=== PATIENT | female | born 1990 | race African-American/Black ===

== ENCOUNTER 2019-06-24 21:16 | Emergency (ER) | payer MEDICAID, SELFPAY ==
--- NOTE | ~2019-06-24 | XR_ITS ---
XR ankle LT min 3V 06/24/2019 21:39 Indication: Left ankle pain Procedure: 4 views left ankle Comparison: No prior studies for comparison. Findings: There is an oblique distal fibular metadiaphyseal fracture with approximately 2-3 mm latera l displacement. Moderate lateral soft tissue swelling. No significant angulation. Talar dome is unrem arkable. There are mild degenerative changes of the midfoot. Impression: 1: Oblique distal fibular fracture with mild lateral displacement. Reviewed, dictated and finalized at location A. HYSICAL [employer]Y CHIEF Impression: 1: Oblique distal fibular fracture with mild lateral displacement.
[2019-06-24 21:20] VITALS: BP 125/69; PULSE 66; RESP 16; TEMP 36.4; O2SAT 100
--- NOTE | 2019-06-24 21:31 | ED.LOWEXIN ---
HPI - Extremity Injury (Lower) General Chief Complaint: Extremity Injury, Lower Stated Complaint: L ankle injury Time Seen by Provider: 06/24/19 21:22 Source: patient Mode of arrival: ambulatory Limitations: no limitations History of Present Illness HPI Narrative: Patient is a 28-year-old female who presents complaining of left ankle pain and swelling. Patient reports tripping and twisting ankle 3 days ago. Reports that she has been ambulating and pain has decreased. Patient reports swelling and bruising continue. She is not on blood thinners. She reports taking [id number] medications with moderate relief. complaint: ankle injury Related Data Allergies Allergy/AdvReac Type Severity Reaction Status Date / Time No Known Allergies Allergy Verified 06/24/19 21:26 Review of Systems Review of Systems: Narrative: CONSTITUTIONAL: Denies fever, chills, or sweats. EYES: Denies visual changes, redness, or discharge. ENT: Denies rhinorrhea, congestion, sore throat, or otalgia. CARDIOVASCULAR: Denies chest pain, palpitations, or edema. RESPIRATORY: Denies cough or dyspnea. GASTROINTESTINAL: Denies abdominal pain, nausea, vomiting, or diarrhea. GENITOURINARY: Denies dysuria or hematuria. SKIN: Denies rash or itching. MUSCULOSKELETAL: Denies back pain, joint pain, or myalgia. Reports left ankle pain, bruising and swelling NEUROLOGIC: Denies headache, numbness, dizziness, or weakness. PSYCHIATRIC: Denies anxiety or depression. [facility] Past Medical History Medical History (Updated 06/24/19 @ 22:08 by SANTINO Dumas) Migraine Myasthenia gravis Pituitary tumor per patient verbal history Surgical History Surgical History (Updated 06/24/19 @ 21:35 by SANTINO Dumas) H/O thyroidectomy per patient Social History Social History (Updated 06/24/19 @ 21:36 by SANTINO Dumas) Smoking status: Never smoker Alcohol intake: never Substance use: never Gender identity (if verbalized by the patient): Female Exam Narrative: Exam Narrative: GENERAL: Well-appearing, well-nourished, and in no acute distress. HEAD: Normocephalic, atraumatic. EYES: EOMI. No redness or drainage. Conjunctiva are normal. ENT: Mucous membranes pink and moist. Nares clear. No rhinorrhea. TMs normal bilaterally. Throat normal. Uvula midline. NECK: AROM. Supple. No lymphadenopathy. CHEST: No respiratory distress. Clear to auscultation. HEART: Regular rate and rhythm. No murmur appreciated. Normal peripheral pulses. EXTREMITIES: Left ankle: Large amount of generalized edema from tarsals to mid calf, medial ecchymosis, distal sensation intact, good peripheral pulse SKIN: Warm, dry, no rash. NEURO: No focal deficits. Alert and oriented x3. Gait steady. PSYCH: Normal affect. No signs of depression or anxiety. Course Vital Signs Vital signs: Vital Signs Temperature 36.4 C 06/24/19 21:20 Pulse Rate 66 06/24/19 21:20 Respiratory Rate 16 06/24/19 21:20 Blood Pressure 125/69 06/24/19 21:20 Pulse Oximetry 100 06/24/19 21:20 Temperature 36.4 C 06/24/19 21:20 Pulse Rate 66 06/24/19 21:20 Respiratory Rate 16 06/24/19 21:20 Blood Pressure 125/69 06/24/19 21:20 Pulse Oximetry 100 06/24/19 21:20 Procedures Orthopedic Splinting/Casting Injury #1: Splinting/Casting Date: 06/24/19 Splinting/Casting Time: 22:11 Side: left Lower Extremity Injury Location: ankle Lower Extremity Immobilizer: posterior splint OCL: posterior Pre-Procedure Neuro Vascular Exam: normal Post-Procedure Neuro Vascular Exam: normal Other Orthopedic Equipment: crutches Additional Comments: Splinting completed by ED RN, checked by this provider. Distal sensation intact and good capillary refill. MDM - Extremity Injury (Lower) MDM Narrative Medical decision making narrative: Patient has distal fibular fracture. Splint applied and patient trained on crutch
[2019-06-24 22:47] VITALS: BP 120/80; PULSE 80; RESP 18; TEMP 36.7; O2SAT 97
== END 2019-06-24 22:48 | disposition home or self-care (01) ==
PROVIDERS: Emergency Provider Nurse Practitioner
DX: S89.392A Other physeal fracture of lower end of left fibula, initial encounter for closed fracture (principal); G70.00 Myasthenia gravis without (acute) exacerbation; E89.0 Postprocedural hypothyroidism; W18.40XA Slipping, tripping and stumbling without falling, unspecified, initial encounter; X50.9XXA Other and unspecified overexertion or strenuous movements or postures, initial encounter
CPT/HCPCS: 29515; 73610; 99284

== ENCOUNTER 2021-01-10 08:12 | Emergency (ER) | payer OTHER, SELFPAY ==
[2021-01-10 08:17] VITALS: BP 130/83; PULSE 71; RESP 18; TEMP 37.2; O2SAT 100
[2021-01-10 08:44] LABS: Basophils Percent Auto 0.2 % (0.2-1.2); Eosinophils Percent Auto 0.3 % (0-4.4); Hematocrit 35.6 % (37.0-47.0); Hemoglobin 11.1 g/dL (12.0-15.0); Immature Granulocyte Absolute 0.02 K/mm3 (0.00-0.031); Immature Granulocyte Percent A 0.3 % (0-0.5); Lymphocytes Percent Auto 43.3 % (18.3-44.2); Mean Corpuscular HGB Conc 31.2 g/dl (32-36); Mean Corpuscular Hemoglobin 26.1 pg (26-34); Mean Corpuscular Volume 83.6 fl (80-100); Mean Platelet Volume 9.9 fl (7.4-10.4); Monocytes Absolute Auto 0.7 K/mm3 (0.1-0.6); Neutrophils Absolute Auto 2.6 K/mm3 (1.3-6.7); Neutrophils Percent Auto 43.9 % (45.5-73.1); Platelet Count Result 262 k/mm3 (150-375); Red Blood Count 4.26 M/mm3 (4.2-5.4); Red Cell Distribution Width 14.2 % (11.5-14.5)
[2021-01-10 09:00] LABS: Alanine Aminotransferase 14 U/L (4-35); Albumin Level 4.1 g/dL (3.5-5.1); Alkaline Phosphatase 79 U/L (38-126); Anion Gap 5 mmol/L (8-16); Aspartate Amino Transferase 20 U/L (14-36); Bilirubin,Total 0.4 mg/dL (0.2-1.3); Blood Urea Nitrogen 9 mg/dL (7-17); Calcium 8.5 mg/dL (8.4-10.2); Carbon Dioxide 25 mmol/L (22-30); Chloride 102 mmol/L (98-107); Estimated CRCL calculation 152 ml/min; Estimated Glomerular Filt Rate > 60; Glucose 106 mg/dL (65-110); Lipase 56 U/L (23-300); Potassium 3.8 mmol/L (3.4-5.0); Sodium 132 mmol/L (137-145)
[2021-01-10 09:03] LABS: Add Urine Microscopic? YES; Appearance Urine Cloudy (Clear); Bilirubin Urine Negative (Negative); Blood Urine Negative (Negative); Color Urine Yellow (Yellow); Glucose Urine UA Negative (Negative); Ketones Urine Negative (Negative); Leukocyte Esterase Ur Negative LEU/UL (Negative); Mucus Urine Rare /lpf; Nitrate Urine Negative (Negative); Protein Urine Negative (Negative); Specific Grav Ur 1.016 (1.001-1.035); Squamous Epithelial Cell Urine Few /hpf (Few); Urobilinogen Urine Negative mg/dL (<2.0); WBC Urine 0-3 /hpf
--- NOTE | 2021-01-10 09:41 | ED.ABDPAIN ---
HPI - Abdominal Pain General Chief Complaint: Abdominal Pain Stated Complaint: Abd and Breast Pain Time Seen by Provider: 01/10/21 09:12 Source: patient Mode of arrival: ambulatory Limitations: no limitations History of Present Illness HPI narrative: This is a 30-year-old female that presents to the emergency department for pelvic cramping and breast tenderness. Noted over the last couple of days. She was concerned that she might be . She is unsure of her last menstrual period. It was sometime last month. She is not currently on control. Denies fever, abnormal breast masses or nipple discharge, nausea, vomiting, dysuria, or diarrhea. Related Data Allergies Allergy/AdvReac Type Severity Reaction Status Date / Time No Known Allergies Allergy Verified 01/10/21 08:19 Review of Systems Review of Systems: CONSTITUTIONAL: Denies fever GASTROINTESTINAL: Denies abdominal pain, nausea, vomiting, or diarrhea. GENITOURINARY: Denies dysuria or hematuria. All systems reviewed & are unremarkable except as noted in HPI and below PMFSH Past Medical History Medical History (Updated 01/10/21 @ 09:45 by Meri Lindquist PA-C) Migraine Myasthenia gravis Pituitary tumor per patient verbal history Surgical History Surgical History (Updated 06/24/19 @ 21:35 by SANTINO Dumas) H/O thyroidectomy per patient Social History Social History (Updated 06/24/19 @ 21:36 by SANTINO Dumas) Smoking status: Never smoker Alcohol intake: never Substance use: never Gender identity (if verbalized by the patient): Female Exam Narrative: GENERAL: Well-appearing, well-nourished, and in no acute distress. HEAD: Normocephalic, atraumatic. EYES: EOMI. CHEST: Clear to auscultation. No respiratory distress. No wheezes rales or rhonchi HEART: Regular rate and rhythm. No murmur heard. Normal peripheral pulses. ABDOMEN: Soft, nontender, nondistended, normal active bowel sounds. EXTREMITIES: Normal range of motion. No edema. SKIN: Warm, dry, no rash. NEURO: No focal deficits. Alert and oriented x3. PSYCH: Normal mood and affect Course Vital Signs Vital signs: Vital Signs Temperature 99.0 F 01/10/21 08:17 Pulse Rate 71 01/10/21 08:17 Respiratory Rate 18 01/10/21 08:17 Blood Pressure 130/83 01/10/21 08:17 Pulse Oximetry 100 01/10/21 08:17 Temperature 99.0 F 01/10/21 08:17 Pulse Rate 71 01/10/21 08:17 Respiratory Rate 18 01/10/21 08:17 Blood Pressure 130/83 01/10/21 08:17 Pulse Oximetry 100 01/10/21 08:17 MDM - Abdominal Pain MDM Narrative Medical decision making narrative: Patient presents the emergency department for pelvic cramping and breast tenderness. Patient was unsure of her last menstrual period and wondering if she was . She is afebrile and nontoxic-appearing. Abdominal exam is benign. CBC is without leukocytosis. Does show mild normocytic anemia with hemoglobin of 11.1. Metabolic panel and lipase without concerning findings. UA without evidence of infection. Bedside test is negative. Patient was updated on case findings. Denies any current symptoms and would like to go home. She was instructed to follow-up with her processing associate. She is stable and felt appropriate for further outpatient evaluation. She was given warnings to return to the ER Lab Data Attestation: I reviewed the patient's lab results. Result diagrams: 01/10/21 08:38 01/10/21 08:38 Labs: Lab Results 01/10/21 01/10/21 01/10/21 Range/Units 08:27 08:38 08:38 WBC 6.0 (4.5-10.0) K/mm3 RBC 4.26 (4.2-5.4) M/mm3 Hgb 11.1 L (12.0-15.0) g/dL Hct 35.6 L (37.0-47.0) % MCV 83.6 (80-100) fl MCH 26.1 (26-34) pg MCHC 31.2 L (32-36) g/dl RDW 14.2 (11.5-14.5) % Plt Count 262 (150-375) k/mm3 MPV 9.9 (7.4-10.4) fl Immature Gran % (Auto) 0.3 (0-0.5) % Neut % (Auto) 43.9 L (45.5-73.1) %
--- NOTE | 2021-01-10 09:41 | PC.NURSE ---
Pt. repeatedly asking technicians to take out her IV. Pt. reports I cannot move my arm. Technicians informed pt. they cannot take out her Iv. RN in to remove pt. Iv. pt. states I am discharged and not getting any medications so take my IV out. RN removed pt. iv. pt. dressed on stretcher waiting for discharge instructions.
== END 2021-01-10 09:45 | disposition home or self-care (01) ==
PROVIDERS: Emergency Provider Emergency Medicine
DX: N64.4 Mastodynia (principal)
CPT/HCPCS: 36415; 80053; 81001; 81025; 83690; 85025; 99283

== ENCOUNTER 2022-08-25 06:05 | Emergency (ER) | payer OTHER, SELFPAY ==
--- NOTE | ~2022-08-25 | CT_ITS ---
EXAMINATION: CT abdomen pelvis w con DATE: 08/25/2022 08:17 INDICATION: Low abdominal pain. Nausea and vomiting. TECHNIQUE: Computed tomography (CT) of the abdomen and pelvis was performed with 100 mL Omnipaque 350 intravenous contrast. Automated exposure control and iterative reconstruction technique were employe d. The dose-length product was 1612.89 mGy-cm. COMPARISON: None. FINDINGS: The visualized portions of the lung bases demonstrate minimal atelectasis. No pleural effus ion. The heart size is normal. No pericardial effusion. The liver, gallbladder, spleen, pancreas, adr enal glands, and kidneys are normal. There are no dilated loops of bowel. The appendix is normal. The re are no pathologically enlarged lymph nodes. There is no free intraperitoneal fluid. There is mild thoracolumbar spondylosis. IMPRESSION: 1. No etiology for the patient's symptoms. Reviewed, dictated and finalized at location A.
[2022-08-25 06:09] VITALS: BP 131/78; PULSE 85; RESP 16; TEMP 37.1; O2SAT 100
--- NOTE | 2022-08-25 07:08 | ED.BACK ---
HPI - Back Pain/Injury General Chief Complaint: Back Pain/Injury Stated Complaint: lower back pain Time Seen by Provider: 08/25/22 07:01 Source: RN notes reviewed History of Present Illness HPI Narrative: Patient presents emergency room from home for lower back pain. Patient symptoms began approximately 3 AM this morning. The pain is located in the bilateral lower back and does not radiate described as achy in nature. Patient states pain began approximately 3 AM this morning. States is associated with bilateral lower abdominal pain described as pressure in nature. States that she had 4 episodes of vomiting yesterday as well as some diarrhea. States that she has not taken anything for the pain. She denies any fevers or chills chest pain shortness of breath or any other symptoms. Denies any numbness or tingling in the extremity Related Data Home Medications Medication Instructions Recorded Confirmed bromocriptine 2.5 mg tablet mg 08/25/22 gabapentin 400 mg capsule mg 08/25/22 ketoconazole 2 % topical cream applic topical 08/25/22 liraglutide 0.6 mg/0.1 mL (18 mg/3 mg subcut 08/25/22 mL) subcutaneous pen injector (Skifttoza 2-Ty) norgestimate 0.25 mg-ethinyl tablet 08/25/22 estradiol 35 mcg tablet (Sprintec (28)) propranolol 60 mg capsule,24 mg PO 08/25/22 hr,extended release Allergies Allergy/AdvReac Type Severity Reaction Status Date / Time No Known Allergies Allergy Verified 08/25/22 06:05 Review of Systems Review of Systems: Gen.: Denies fevers or chills ENT: Denies congestion Respiratory: Denies shortness of breath or cough CV: Denies chest pain or palpitations GI: Reports HPI denies burning, urgency, frequency or hematuria Musculoskeletal: Reports lower back pain Neuro: Denies numbness, tingling, weakness or focal weakness Skin: Denies rash Except as documented, all other systems reviewed and negative PMFSH Past Medical History Medical History Migraine Myasthenia gravis Pituitary tumor per patient verbal history Surgical History Surgical History (Updated 06/24/19 @ 21:35 by Radha Weinstein, STAFFING ANALYST) H/O thyroidectomy per patient Social History Social History Smoking status: Never smoker Alcohol intake: never Substance use: never Gender identity (if verbalized by the patient): Female Exam Narrative: APPEARANCE: No acute distress, nontoxic, resting in bed HEENT: Normocephalic, atraumatic, OMM RESPIRATORY: No respiratory distress, clear to auscultation bilaterally with no rhonchi wheezing or rales CARDIOVASCULAR: RRR s murmur ABDOMINAL: Soft nondistended tender to palpation in the right lower quadrant in the left lower quadrant no tenderness in the right upper quadrant and left lower quadrant no rebound or guarding Back: No midline thoracic or lumbar tenderness palpation, mild tenderness palpation of the bilateral paravertebral muscles L3-5 MUSCULOSKELETAl: Moves all extremities. No clubbing, cyanosis or edema. NEURO: Awake and alert. Following commands, speech normal, no focal deficits SKIN:: Warm, dry. Normal Color PSYCHIATRIC: Normal affect/mood Course Course Emergency Course: Patient states she is feeling better at this time Discussed with patient results of workup and diagnosis. Discussed need for follow-up with primary care, proper use of medication, and reasons to return to the emergency department. Patient understands and agrees to current treatment plan Vital Signs Vital signs: Vital Signs Temperature 98.7 F 08/25/22 06:09 Pulse Rate 85 08/25/22 06:09 Respiratory Rate 16 08/25/22 06:09 Blood Pressure 131/78 08/25/22 06:09 Pulse Oximetry 100 08/25/22 06:09 Temperature 98.7 F 08/25/22 06:09 Pulse Rate 85 08/25/22 06:09 Respiratory Rate 16 08/25/22 06:09 Blood Pressure 131/78 08/25/22 06:09 Pulse Oximet
[2022-08-25 07:22] LABS: Appearance Urine Cloudy (Clear); Bacteria Urine Rare /hpf; Bilirubin Urine Negative (Negative); Blood Urine Negative (Negative); Color Urine Yellow (Yellow); Glucose Urine UA Negative (Negative); Ketones Urine Negative (Negative); Leukocyte Esterase Ur Negative LEU/UL (Negative); Nitrate Urine Negative (Negative); Non Pathogenic Casts 0-2; Protein Urine Negative (Negative); Specific Grav Ur 1.022 (1.001-1.035); Squamous Epithelial Cell Urine Moderate /hpf (Few); WBC Urine 0-5 /hpf; pH Urine 6.5 (5.0-9.0)
[2022-08-25] MEDS: SODIUM CHLORIDE 0.9% IV 1,000 ML 999 ML IV CONT (07:31)
[2022-08-25] MEDS: KETOROLAC 30 MG/ML VIAL (*BKC) IV PUSH (07:32)
[2022-08-25 07:41] LABS: Add Urine Microscopic? YES
[2022-08-25 07:42] LABS: Basophils Percent Auto 0.2 % (0.2-1.2); Eosinophils Percent Auto 0.3 % (0-4.4); Hemoglobin 11.8 g/dL (12.0-15.0); Immature Granulocyte Absolute 0.03 K/mm3 (0.00-0.031); Immature Granulocyte Percent A 0.5 % (0-0.5); Lymphocytes Absolute Auto 1.28 K/mm3 (0.9-3.2); Mean Corpuscular HGB Conc 31.9 g/dl (32-36); Mean Corpuscular Hemoglobin 26.4 pg (26-34); Mean Corpuscular Volume 82.8 fl (80-100); Mean Platelet Volume 9.7 fl (7.4-10.4); Monocytes Absolute Auto 0.8 K/mm3 (0.1-0.6); Monocytes Percent Auto 12.5 % (2.6-8.5); Neutrophils Absolute Auto 4.3 K/mm3 (1.3-6.7); Neutrophils Percent Auto 66.5 % (45.5-73.1); Platelet Count Result 328 k/mm3 (150-375); Red Blood Count 4.47 M/mm3 (4.2-5.4); Red Cell Distribution Width 14.4 % (11.5-14.5); White Blood Count 6.4 K/mm3 (4.5-10.0)
[2022-08-25 07:54] LABS: Alanine Aminotransferase 19 U/L (6-35); Albumin Level 4.4 g/dL (3.5-5.1); Alkaline Phosphatase 86 U/L (38-126); Anion Gap 6 mmol/L (8-16); Aspartate Amino Transferase 20 U/L (14-36); Bilirubin,Total 0.3 mg/dL (0.2-1.3); Blood Urea Nitrogen 9 mg/dL (7-17); Calcium 8.1 mg/dL (8.4-10.2); Carbon Dioxide 29 mmol/L (22-30); Chloride 104 mmol/L (98-107); Estimated CRCL calculation 141 ml/min; Estimated Glomerular Filt Rate > 60; Glucose 96 mg/dL (65-110); Lipase 67 U/L (23-300); Potassium 3.9 mmol/L (3.4-5.0); Sodium 139 mmol/L (137-145)
[2022-08-25 09:35] VITALS: RESP 16; TEMP 36.6
== END 2022-08-25 09:45 | disposition home or self-care (01) ==
PROVIDERS: Emergency Provider Emergency Medicine
DX: M54.50 Low back pain, unspecified (principal); R10.31 Right lower quadrant pain; R10.32 Left lower quadrant pain; R11.2 Nausea with vomiting, unspecified
CPT/HCPCS: 36415; 74177; 80053; 81001; 81025; 83690; 85025; 96361; 96374; 99284; J1885; J7030; Q9967

== ENCOUNTER 2024-06-23 11:36 | Emergency (ER) | payer BC, SELFPAY ==
--- NOTE | ~2024-06-23 | XR_ITS ---
CHEST RADIOGRAPH, PA AND LATERAL CLINICAL HISTORY: cough . COMPARISON: None available TECHNIQUE: PA and lateral views of the chest. FINDINGS The cardiomediastinal silhouette is unremarkable. Marked elevation of the left hemidiaphragm with adjacent compressive atelectasis. The lungs are otherwise clear. IMPRESSION: No focal infiltrate or effusion. Reviewed, dictated and finalized at location A. CTOR SEARCH
[2024-06-23 11:43] VITALS: BP 121/73; PULSE 71; TEMP 36.9; O2SAT 100
--- OUTSIDE RECORDS SUMMARY | 2024-06-23 12:45 | XMS_ITS ---
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 Name Role Phone Letha Carroll Primary Care Provider REASON FOR VISIT 3 Month Follow-up Medications Medication SIG (Take, Route, Frequency, Duration) Notes Start Date End Date Status Ergocalciferol 1.25 MG (5000 0 UT) 1 capsule Orally weekly for 84 days 06/22/2024 Active Mounjaro 2.5 MG/0.5ML inject 0.5ml Subcutaneous weekly for 30 days 06/22/2024 Active Mounjaro 5 MG/0.5ML inject 0.5ml Subcutaneous weekly for 90 days 06/22/2024 Active Azithromycin 250 MG 2 tablets on the day, then 1 tablet daily for 4 days oral until complete for 5 days 06/22/2024 Active Benzonatate 100 MG 1 capsule as needed for cough Orally Three times a day for 10 days 06/22/2024 Active Famotidine 40 MG/5ML 5 mL Orally Once a day Active Bromocriptine Mesylate 2.5 MG three tabl ets Orally Once a day for 90 days 04/27/2024 Active pyRIDostigmine [place] 60 MG 1 tablet Or ally every 4 hrs Active methylPREDNISolone 4 MG take as indicate d for medrol dose pack Orally daily for 6 days 06/22/2024 Active Vital Signs Blood pressure systolic 117 mm Hg 06/22/19 25 Blood pressure diastolic 72 mm Hg 025 Heart Rate 70 /min 06/22/2024 Height 68 in 06/22/2024 Weight 253 lbs 06/22/2024 BMI 38.46 kg/m2 06/22/2024 SPO2: 98% Encounters Encounter Location Date Provider Diagnosis [facility] - Letha Carroll [id number] [place] [address] 06/22/2024 Letha Carroll Hyperprolactinemia E 22.1 ; Type 2 diabetes mellitus with hyperglycemia E11.65 ; Irregular menstruation, unspecified N92.6 ; Vitamin D deficiency, unspecified E55.9 ; Acute upper respiratory infection, unspecified J06.9 ; Obesity, unspecified E66.9 and Dietary counseling and surveillance Z71.3 Assessments Encounter Date Diagnosis (ICD Code) Assessment Notes Treatment Notes Treatment Clinical Notes Section Notes 06/22/2024 Hyperprolactinemia (ICD-10 - E22.1) 06/22/2024 Type 2 diabetes mellitus with hyperglycemia (ICD-10 - E11.65) 06/22/2024 Irregular menstruation, unspecified (ICD-10 - N92.6) 06/22/2024 Vitamin D deficiency, unspecified (ICD-10 - E55.9) 06/22/2024 Acute upper respiratory infection, unspecified (ICD-10 - J06.9) 06/22/2024 Obesity, unspecified (ICD-10 - E66.9) 06/22/2024 Dietary counseling and surveillance (ICD-10 - Z71.3) 06/22/2024 Other Assessment and Plan: Upper Respiratory InfectionPatient presents with cough, sinus congestion, and fatigue, with symptoms including white sputum production and nocturnal exacerbation. No fever reported. Negative COVID-19 rapid test. FLU A/B negative.Differential diagnoses: viral upper respiratory infection, influenza, or early/mild COVID-19 infection.Prescribe Tessalon Perles for cough suppression.Initiate Medrol Dose Pack for anti-inflammatory effect.Prescribe azithromycin (Z-Ty) for potential secondary bacterial infection.Advise proper dressing for cold weather.Recommend adequate rest and hydration. Type 2 Diabetes MellitusHistory of diabetes with elevated A1c levels and insulin resistance. Not currently on glucose-lowering medications due to insurance issues.Attempt to initiate Mounjaro 2.5 mg subcutaneously weekly, titrating to 5 mg after 4 weeks if tolerated.Explore insurance coverage options for Mounjaro.If insurance denies, consider compounded tirzepatide 2.5 mg weekly at $290/month for 4 doses.Provide patient education on Mounjaro administration and potential side effects.Obtain informed consent for Mounjaro, emphasizing risk of nausea and need to discontinue if severe abdominal pain or vomiting occurs.Restart metformin (dosage not specified). Polycystic Ovary Syndrome (PCOS)Elevated DHEAS levels consistent with PCOS diagnosis. Reports irregular menstrual cycles.Continue bromocriptine 7.5 mg (frequency not specified).Emphasize importance of weight loss in managing PCOS symptoms.Monitor menstrual cycles. Vitamin D DeficiencySuspected or being treated prophylactically for Vitamin D deficiency. No previous history of supplementation reported.Initiate vitamin D 50,000 IU orally weekly.Recommend taking vitamin D on the same day as Mounjaro injection. Gastroesophageal Reflux Disease (GERD)Patient reports taking famotidine for heartburn symptoms, indicating ongoing GERD management.Continue famotidine (dosage not specified). Myasthenia GravisPatient reports taking pyridostigmine, indicating ongoing management for myasthenia gravis.Continue pyridostigmine (dosage not specified). Follow-up:Schedule a follow-up appointment as needed to review treatment effectiveness and adjust plans accordingly.Encourage patient to report any new or worsening symptoms. Spent 15 minutes preventative counseling patient on dietary recommendations and changes in setting of hyperglycemia- need to restrict refined sugars and processed foods and incorporate up to 150 minutes of moderate level activity weekly. Spent 25 minutes preparing to see the patient (ex review of tests/chart), obtaining and / or reviewing separately obtained history, performing a medically appropriate examination and/or evaluation, counseling and educating the patient/family/caregi martín, ordering medications, tests, or procedures, referring and communicating with other health career development associate, documenting clinical information in the electronic or other health record, independently interpreting results and communicating results to the patient/family/caregi martín and care coordinating patient plan. Patient alert and oriented x 4 and aware of discussion noted above and in agreeance to plan in management of PCOS, type 2 DM, vit D def, obesity, weight management and ROBERTO. Plan Of Treatment Medication Medication Name Sig Start Date Stop Date Notes Ergocalciferol 1.25 MG (5000 0 UT) 1 capsule Orally weekly for 84 days 06/22/2024 Mounjaro 2.5 MG/0.5ML inject 0.5ml Subcu taneous weekly for 30 days 06/22/2024 Mounjaro 5 MG/0.5ML inject 0.5ml Subcuta neous weekly for 90 days 06/22/2024 Azithromycin 250 MG 2 tablets on the fir st day, then 1 tablet daily for 4 days oral until complete for 5 days 06/22/2024 Benzonatate 100 MG 1 capsule as needed for cough Orally Three times a day for 10 days 06/22/2024 methylPREDNISolone 4 MG take as indicate d for medrol dose pack Orally daily for 6 days 06/22/2024 Treatment Notes Assessment Notes Other Assessment and Plan: Upper Respiratory InfectionPatient presents with cough, sinus congestion, and fatigue, with symptoms including white sputum production and nocturnal exacerbation. No fever reported. Negative COVID-19 rapid test. FLU A/B negative.Differential diagnoses: viral upper respiratory infection, influenza, or early/mild COVID-19 infection.Prescribe Tessalon Perles for cough suppression.Initiate Medrol Dose Pack for anti-inflammatory effect.Prescribe azithromycin (Z-Ty) for potential secondary bacterial infection.Advise proper dressing for cold weather.Recommend adequate rest and hydration. Type 2 Diabetes MellitusHistory of diabetes with elevated A1c levels and insulin resistance. Not currently on glucose-lowering medications due to insurance issues.Attempt to initiate Mounjaro 2.5 mg subcutaneously weekly, titrating to 5 mg after 4 weeks if tolerated.Explore insurance coverage options for Mounjaro.If insurance denies, consider compounded tirzepatide 2.5 mg weekly at $290/month for 4 doses.Provide patient education on Mounjaro administration and potential side effects.Obtain informed consent for Mounjaro, emphasizing risk of nausea and need to discontinue if severe abdominal pain or vomiting occurs.Restart metformin (dosage not specified). Polycystic Ovary Syndrome (PCOS)Elevated DHEAS levels consistent with PCOS diagnosis. Reports irregular menstrual cycles.Continue bromocriptine 7.5 mg (frequency not specified).Emphasize importance of weight loss in managing PCOS symptoms.Monitor menstrual cycles. Vitamin D DeficiencySuspected or being treated prophylactically for Vitamin D deficiency. No previous history of supplementation reported.Initiate vitamin D 50,000 IU orally weekly.Recommend taking vitamin D on the same day as Mounjaro injection. Gastroesophageal Reflux Disease (GERD)Patient reports taking famotidine for heartburn symptoms, indicating ongoing GERD management.Continue famotidine (dosage not specified). Myasthenia GravisPatient reports taking pyridostigmine, indicating ongoing management for myasthenia gravis.Continue pyridostigmine (dosage not specified). Follow-up:Schedule a follow-up appointment as needed to review treatment effectiveness and adjust plans accordingly.Encourage patient to report any new or worsening symptoms. Spent 15 minutes preventative counseling patient on dietary recommendations and changes in setting of hyperglycemia- need to restrict refined sugars and processed foods and incorporate up to 150 minutes of moderate level activity weekly. Spent 25 minutes preparing to see the patient (ex review of tests/chart), obtaining and / or reviewing separately obtained history, performing a medically appropriate examination and/or evaluation, counseling and educating the patient/family/caregiver, ordering medications, tests, or procedures, referring and communicating with other health career development associate, documenting clinical information in the electronic or other health record, independently interpreting results and communicating results to the patient/family/caregiver and care coordinating patient plan. Patient alert and oriented x 4 and aware of discussion noted above and in agreeance to plan in management of PCOS, type 2 DM, vit D def, obesity, weight management and ROBERTO. Next Appt Details Follow Up: 4 Months, Reason: labwork Provider Name:Letha Carroll, 10:00:00 AM, [address] , [place], [address], Progress Notes * GARCIA DAVISADOB:1990 (33 yo F)Acc No.[id number]:06/22/2024 Progress Notes Patient:?ALEIDA DAVIS Provider:?Letha Carroll MD :1990???Age:33 Y???Sex:Female D ate:06/22/2024 Address:[address] [place] [address] Subjective: * Chief Complaints: * ???1. 3 Month Follow-up. * HPI: ???Interval Hx:? 33 yo female comes in for follow up in management of weight/insulin resistance, PCOS, prolactinoma hx and autoimmune thyroiditis.? ?Found to have prediabetes and vit D def.? At her initial visit in [facility] we restarted bromocriptine 7.5 mg daily and added mounjaro for weight management. Thyroid and prolactin levels normal from [facility] labwork. Carla presented with a persistent cough, sinus congestion, and fatigue, with symptoms worsening at night and producing white sputum. She has a history of diabetes, PCOS, myasthenia gravis, and sleep apnea. Her diabetes management is currently challenged by insurance issues with Mounjaro coverage. She also reported recent episodes of diarrhea and missed her menstrual period this month. COVID-19 test was negative, and lab results showed elevated A1c and insulin levels. Treatment plans include managing her upper respiratory infection, exploring options for diabetes medication, and continuing current treatments for PCOS, GERD, and myasthenia gravis. The patient presents with a persistent cough that she just can't get rid of and sinus congestion. She reports the cough comes and goes, occurring mostly at night but also during the day. The patient has been experiencing white sputum production. These symptoms have been ongoing for a couple of days. She denies fever but reports feeling tired, and experiencing temperature fluctuations. The patient attributes some of her symptoms to improper dressing for cold weather and sleeping in a room where the heating system malfunctioned, blowing cold air instead of heat. She also mentions recent episodes of diarrhea at work. The patient has a history of diabetes and reports being out of metformin and insulin. She expresses interest in starting Mounjaro for blood sugar control but states insurance has not approved it. The patient also mentions not having had a menstrual period this month. Medical History - Diabetes (history of) - Polycystic ovarian syndrome (PCOS) - Myasthenia gravis - Sleep apnea - COVID-19 (3 previous infections) Current and Past Medications and Supplements - Famotidine (for heartburn) - Pyridostigmine (for myasthenia gravis) - Bromocriptine 7.5 mg - Trulicity (once a week) Social History - Occupation: employed, occupation not specified - Living situation: lives with spouse Review of Systems - General: Feeling unwell, fatigue - Respiratory: Persistent cough, sinus issues - Gastrointestinal: Diarrhea - ENT: Nasal congestion, especially at night - Thermoregulatory: Feeling hot then cold. * ROS:?NEUROLOGY:?no?headache.?no?tingling numbness.?no?seizures.?no?insomnia.?no?memory loss.?no?dizziness.?no?gait abnormality.?no?change in sensation anywhere on body.?no?localized weakness or numbness.?no?blackouts or near blackouts.?no?migraine.?no?tremors.?no?fainting spells.?no?head injury.?no?stroke.?OPTHALMOLOGY:?no?diminished vision.?no?eye irritation.?no?drainage from eyes.?no?blurring of vision.?no?seasonal eye sx.?no?dander related eye sx.?no?loss of vision.?no?cataracts.?no?glasses/contacts.?no?glaucoma.?no?detached retina.?no?macular degeneration.?no?eye redness.?RESPIRATORY:?no?shortness of breath.?no?chest pain.?no?wheezing.?no?asthma.?no?breathlessness when lying flat.?no?prolonged cough.?no?frequent infections (bronchitis).?no?emphysema.?no?chest congestion.?no?sleep apnea.?ALLERGY:?no?runny nose.?no?scratchy throat.?no?itchy eyes.?no?ear fullness.?no?sinus congestion.?no?stuffy nose.?no?watery eyes.?no?seasonal allergies.?no?hay fever.?no?allergy.?no?polyps.?no?sneezing.?HEMATOLOGY/LYMPH:?no?swollen glands.?no?fatigue.?no?loss of appetite.?no?easy bruising.?no?easy bleeding.?no?anemia.?UROLOGY:?no?difficulty urinating.?no?blood in urine.?no?urinary urgency.?no?frequent urination.?no?urinary incontinence.?no?voiding dysfunction.?no?vulvodynia.?no?dysparaunia.?no?recurrent UTI.?no?weak flow.?no?dribbling after urination.?no?frequent bladder infections.?no?kidney stone.?no?kidney disease.?no?urine hesitancy.?no?painful urination.?NUTRITION:?greater than body requirmemts?yes.?Less than body requirements?yes.?appropriate / adequate?yes,?yes.?CONSTITUTIONAL:?no?weight gain.?no?loss of appetite.?no?fever.?no?weakness.?no?weight loss.?no?night sweats.?no?nausea.?no?visual changes.?no?change in sleep patterns.?h+p reviewed?yes,?ROS form reviewed with patient see scan for detail.?no?change in activity capacity.?DERMATOLOGY:?no?rash.?no?change in color of moles.?no?lumps.?no?dry or sensitive skin.?no?hives.?no?oily skin.?no?acne.?no?moles-irregular.?no?moles-change/new.?no?boils.?no dandru ff.?n o?excessive body odor.?no?psoriasis.?no?fungal infections.?no?nail problems.?no?redness/inflammation.?no?athlete's foot.?no?skin cancer.?no?eczema.?ENDOCRINOLOGY:?no?fatigue.?no?excessive sweating.?no?excessive thirst.?no?excessive urination.?no?weight loss.?no?sleep disturbance.?no?cold intolerance.?no?heat intolerence.?no?thyroid disease.?no?increased loss of hair.?no?hx of borderline diabetes.?no?diabetes.?no?abdormal body hair.?no?rheumatism.?no?changes in skin texture.?ENT:?no?cold.?no?cough.?no?coughing blood.?no?nose bleed.?no?hearing loss.?no?change in voice.?no?sore throat.?no?ringing in ears.?no?snoring.?no?ear pain.?no?runny nose.?no?watery eyes.?no?sinus infection.?no?ear infection.?no facial pain.?no?hoarseness.?no?goiter.?no?gum problems.?no?postnasal drip.?no?frequent nosebleeds.?CARDIOLOGY:?no?chest pain.?no?palpitations.?no?leg swelling.?no?dizziness.?no?shortness of breath.?no?varicose veins.?no?leg cramps.?no?cold hands or feet.?no?high blood pressure.?no ankle swelling.?no?cardiac catheterization.?no?heart attacks.?no?angina.?no?murmurs.?no?low blood pressure.?no?leg pain that resolves w/rest.?no?purple fingers or lips.?no?irregular heart rate.?no?congenital heart defects.?no?dizziness when standing up quickly.?no?awakening at night short of breath.?GASTROENTEROLOGY:?no?nausea.?no?heartburn.?no?stool incontinence.?no?reflux.?no?abdominal pain.?no?indigestion.?no?hemorrhoids.?no?hiatal hernia.?no?ulcers.?no?anal fissures.?no?hepatitis.?no?gallstones.?no?red blood after bowel movements.?no?vomiting.?no?bloating/belching.?no?difficulty swallowing.?no?diarrhea.?no?constipation.?no?change in bowel habits.?no?blood in stool.?MUSCULOSKELETAL:?no?joint swelling.?no?joint pain.?no?leg cramps.?no?joint stiffness.?no?arthritis.?no?back pain.?no?muscle aches.?no?morning stiffness.?no?tendinitis.?no?neck pain. no?bursitis.?no?bone marrow biopsy.?no?gout.?activity intolerance?weakness.?no?fracture.?PSYCHOLOGY:?no?high stress level.?no?depression.?no?sleep disturbances.?no?resp sx worse with stress.?no?suicidal ideation.?no?eating disorder.?no?mental or physical abuse.?no?anxiety.?no?headaches.?disease state?yes.?FEMALE REPRODUCTIVE:?no?heavy periods.?no?dysparaunia.?no?sexually active.?no?premenstrual syndrome.?no?dysmenorrhea.?no?infertility.?no?frequent yeast infections.?no?vaginal itching.?no?intermenstrual bleeding.?no?post coital bleeding.?no?postmenopausal bleeding.?no?pelvic pain.?no?menstral cycle.?no?vaginal discharge.?no?vaginal dryness.?no?ovarian cysts.?no?fibroids.?no?discharge from breast.?no abn. bleeding between cycles.?no?postmenopausal symptoms.?no?loss of sexual interest.?no?painful sexual intercourse.?no?endometriosis.?no?vaginal warts.?no?abnormal pap.?no?irregular periods.?no?abnormal vaginal discharge.?no?hot flashes.? * Medical History:?PCOS, vitam in D deficiency, type 2 DM. * Medications:?Taking Bromocri ptine Mesylate 2.5 MG Tablet three tablets Orally Once a day , Taking pyRIDostigmine [place] 60 MG Tablet 1 tablet Orally every 4 hrs , Taking Famotidine 40 MG/5ML Suspension Reconstituted 5 mL Orally Once a day Objective: * Vitals:?HR: 70, BP: 117/72, Ht: 68, Wt: 253, BMI: 38.46. SPO2: 98%. * ???Past Orders: ???Lab:INSULIN (Order Date - 05/06/2024) (Collection Date & Time - 05/06/2024 07:39 AM) ? Value Reference Range ?INSULIN 19.6 H - uIU/mL ???Lab:ACTH, PLASMA (Order D ate - 05/06/2024) (Collection Date & Time - 05/06/2024 07:39 AM) ? Value Reference Range ?ACTH, PLASMA 35 6-50 - pg/mL ???Lab:FSH (Order Date - 03/2024) (Collection Date & Time - 05/06/2024 07:39 AM) ? Value Reference Range ?FSH 6.3 - mIU/mL ???Lab:PROGESTERONE (Order D ate - 05/06/2024) (Collection Date & Time - 05/06/2024 07:39 AM) ? Value Reference Range ?PROGESTERONE 0.6 - ng/mL ???Lab:VITAMIN D, 25-HYDROXY , LC/MS/MS (Order Date - 05/06/2024) (Collection Date & Time - 05/06/2024 07:39 AM) ? Value Reference Range ?VITAMIN D, 25-OH, TOTAL 11 L 30-100 - ng/mL ???Lab:TSH (Order Date - 03/2024) (Collection Date & Time - 05/06/2024 07:39 AM) ? Value Reference Range ?TSH 1.35 - mIU/L ???Lab:T4, FREE (Order Date - 05/06/2024) (Collection Date & Time - 05/06/2024 07:39 AM) ? Value Reference Range ?T4, FREE 1.2 0.8-1.8 - n g/dL ???Lab:T3, FREE (Order Date - 05/06/2024) (Collection Date & Time - 05/06/2024 07:39 AM) ? Value Reference Range ?T3, FREE 3.8 2.3-4.2 - p g/mL ???Lab:CORTISOL, TOTAL (Orde r 05/06/2024) (Collection Date & Time - 05/06/2024 07:39 AM) ? Value Reference Range ?CORTISOL, TOTAL 14.5 - mc g/dL ???Lab:TESTOSTERONE, FREE (D IALYSIS) AND TOTAL,MS (Order Date - 05/06/2024) (Collection Date & Time - 05/06/2024 07:39 AM) ? Value Reference Range ?TESTOSTERONE, TOTAL, MS 27 2-45 - ng/dL ?TESTOSTERONE, FREE 5.3 0 .1-6.4 - pg/mL ???Lab:ESTRADIOL (Order - 05/06/2024) (Collection Date & Time - 05/06/2024 07:39 AM) ? Value Reference Range ?ESTRADIOL 27 - pg/mL ???Lab:LH (Order Date - 04/26) (Collection Date & Time - 05/06/2024 07:39 AM) ? Value Reference Range ?LH 4.2 - mIU/mL ???Lab:PROLACTIN (Order - 05/06/2024) (Collection Date & Time - 05/06/2024 07:39 AM) ? Value Reference Range ?PROLACTIN 17.0 - ng/mL ???Lab:HEMOGLOBIN A1c (Order - 05/06/2024) (Collection Date & Time - 05/06/2024 07:39 AM) ? Value Reference Range ?HEMOGLOBIN A1c 6.2 H <5.7 - % of total Hgb ???Lab:LIPID PANEL (Order Da 05/06/2024) (Collection Date & Time - 05/06/2024 07:39 AM) ? Value Reference Range ?TRIGLYCERIDES 83 <150 - mg/dL ?CHOLESTEROL, TOTAL 163 < 200 - mg/dL ?HDL CHOLESTEROL 63 > OR = 50 - mg/dL ?LDL-CHOLESTEROL 83 - mg /dL (calc) ?CHOL/HDLC RATIO 2.6 <5.0 - (calc) ?NON-HDL CHOLESTEROL 100 <130 - mg/dL (calc) ???Lab:VITAMIN B12/FOLATE, S EFRAIN PANEL (Order 05/06/2024) (Collection Date & Time - 05/06/2024 07:39 AM) ? Value Reference Range ?FOLATE, SERUM 12.4 - ng/m L ?VITAMIN B12 957 183-0837 - pg/mL ???Lab:MAGNESIUM (Order Date - 05/06/2024) (Collection Date & Time - 05/06/2024 07:39 AM) ? Value Reference Range ?MAGNESIUM 2.2 1.5-2.5 - mg/dL ???Lab:CBC (INCLUDES DIFF/PL T) (Order Date - 05/06/2024) (Collection Date & Time - 05/06/2024 07:39 AM) ? Value Reference Range ?WHITE BLOOD CELL COUNT 4.4 3.8-10.8 - Thousand/uL ?RED BLOOD CELL COUNT 4.71 3.80-5.10 - Million/uL ?HEMOGLOBIN 12.3 11.7-15.5 - g/dL ?HEMATOCRIT 39.0 35.0-45.0 - % ?MCV 82.8 80.0-100.0 - fL ?MCH 26.1 L 27.0-33.0 - pg ?MCHC 31.5 L 32.0-36.0 - g/d L ?RDW 13.7 11.0-15.0 - % ?PLATELET COUNT 329 140-4 00 - Thousand/uL ?NEUTROPHILS 41.6 - % ?ABSOLUTE NEUTROPHILS 1830 4334-4049 - cells/uL ?LYMPHOCYTES 41.0 - % ?ABSOLUTE LYMPHOCYTES 6303 748-4120 - cells/uL ?MONOCYTES 16.5 - % ?ABSOLUTE MONOCYTES 726 2 00-950 - cells/uL ?EOSINOPHILS 0.7 - % ?ABSOLUTE EOSINOPHILS 31 15-500 - cells/uL ?BASOPHILS 0.2 - % ?ABSOLUTE BASOPHILS 9 0 -200 - cells/uL ?MPV 10.2 7.5-12.5 - fL ???Lab:IRON AND TOTAL IRON B INDING CAPACITY (Order Date - 05/06/2024) (Collection Date & Time - 05/06/2024 07:39 AM) ? Value Reference Range ?IRON, TOTAL 75 40-190 - mcg/dL ?IRON BINDING CAPACITY 445 250-450 - mcg/dL (calc) ?% SATURATION 17 16-45 - % (calc) ???Lab:COMPREHENSIVE METABOL IC PANEL (Order Date - 05/06/2024) (Collection Date & Time - 05/06/2024 07:39 AM) ? Value Reference Range ?GLUCOSE 105 H 65-99 - mg/d L ?UREA NITROGEN (BUN) 8 7-25 - mg/dL ?CREATININE 0.65 0.50-0.97 - mg/dL ?BUN/CREATININE RATIO SEE NOTE: 6-22 - (calc) ?SODIUM 138 135-146 - mmo l/L ?POTASSIUM 4.2 3.5-5.3 - mmol/L ?CHLORIDE 103 98-110 - mm ol/L ?CARBON DIOXIDE 28 20-32 - mmol/L ?CALCIUM 9.1 8.6-10.2 - m g/dL ?PROTEIN, TOTAL 7.6 6.1-8 .1 - g/dL ?ALBUMIN 4.2 3.6-5.1 - g/ dL ?GLOBULIN 3.4 1.9-3.7 - g /dL (calc) ?ALBUMIN/GLOBULIN RATIO 1.2 1.0-2.5 - (calc) ?BILIRUBIN, TOTAL 0.4 0.2 -1.2 - mg/dL ?ALKALINE PHOSPHATASE 94 31-125 - U/L ?AST 18 10-30 - U/L ?ALT 20 6-29 - U/L ?EGFR 118 > OR = 60 - mL/ min/1.73m2 ???Lab:DHEA SULFATE (Order D ate - 05/06/2024) (Collection Date & Time - 05/06/2024 07:39 AM) ? Value Reference Range ?DHEA SULFATE 362 H 19-237 - mcg/dL * Examination: ???General Examination: ?General?normal, NAD, well nourished and hydrated, pleasant, obese female.?Neck, thyroid :?supple.?Heart:?BP wnl, RSR, no murmurs.?Lungs:?normal, respirations easy with conversation and ambulation.?Abdomen:?normal, round, non-distended.?Neurologic exam:?unremarkable.?Extremities:?unremarkable.?Peripheral pulses:?normal (2+) bilaterally .?Psych:?orientation to person, place & situation, appropriate judgment noted.? Assessment: * Assessment: 1.?Hyperprolactinemia - E22. 1 (Primary)???2.?Type 2 diabetes mellitus with hyperglycemia - E11.65???3.?Irregular menstruation, unspecified - N92.6???4.?Vitamin D deficiency, unspecified - E55.9???5.?Acute upper respiratory infection, unspecified - J06.9???6.?Obesity, unspecified - E66.9???7.?Dietary counseling and surveillance - Z71.3??? Plan: * Treatment: 2.?Vitamin D deficiency, uns pecified? Start Ergocalciferol Capsule, 1.25 MG (98397 UT), 1 capsule, Orally, weekly, 84 days, 12, Refills 1.?? 3.?Acute upper respiratory i nfection, unspecified? Start Azithromycin Tablet, 250 MG, 2 tablets on the first day, then 1 tablet daily for 4 days, oral, until complete, 5 days, 6, Refills 1;?Start Benzonatate Capsule, 100 MG, 1 capsule as needed for cough, Orally, Three times a day, 10 days, 30 Capsule, Refills 1;?Start methylPREDNISolone Tablet, 4 MG, take as indicated for medrol dose pack, Orally, daily, 6 days, 1, Refills 1.?? 4.?Others? Notes:Assessment and Plan: Upper Respiratory InfectionPatient presents with cough, sinus congestion, and fatigue, with symptoms including white sputum production and nocturnal exacerbation. No fever reported. Negative COVID-19 rapid test. FLU A/B negative.Differential diagnoses: viral upper respiratory infection, influenza, or early/mild COVID-19 infection.Prescribe Tessalon Perles for cough suppression.Initiate Medrol Dose Pack for anti-inflammatory effect.Prescribe azithromycin (Z-Ty) for potential secondary bacterial infection.Advise proper dressing for cold weather.Recommend adequate rest and hydration. Type 2 Diabetes MellitusHistory of diabetes with elevated A1c levels and insulin resistance. Not currently on glucose-lowering medications due to insurance issues.Attempt to initiate Mounjaro 2.5 mg subcutaneously weekly, titrating to 5 mg after 4 weeks if tolerated.Explore insurance coverage options for Mounjaro.If insurance denies, consider compounded tirzepatide 2.5 mg weekly at $290/month for 4 doses.Provide patient education on Mounjaro administration and potential side effects.Obtain informed consent for Mounjaro, emphasizing risk of nausea and need to discontinue if severe abdominal pain or vomiting occurs.Restart metformin (dosage not specified). Polycystic Ovary Syndrome (PCOS)Elevated DHEAS levels consistent with PCOS diagnosis. Reports irregular menstrual cycles.Continue bromocriptine 7.5 mg (frequency not specified).Emphasize importance of weight loss in managing PCOS symptoms.Monitor menstrual cycles. Vitamin D DeficiencySuspected or being treated prophylactically for Vitamin D deficiency. No previous history of supplementation reported.Initiate vitamin D 50,000 IU orally weekly.Recommend taking vitamin D on the same day as Mounjaro injection. Gastroesophageal Reflux Disease (GERD)Patient reports taking famotidine for heartburn symptoms, indicating ongoing GERD management.Continue famotidine (dosage not specified). Myasthenia GravisPatient reports taking pyridostigmine, indicating ongoing management for myasthenia gravis.Continue pyridostigmine (dosage not specified). Follow-up:Schedule a follow-up appointment as needed to review treatment effectiveness and adjust plans accordingly.Encourage patient to report any new or worsening symptoms. Spent 15 minutes preventative counseling patient on dietary recommendations and changes in setting of hyperglycemia- need to restrict refined sugars and processed foods and incorporate up to 150 minutes of moderate level activity weekly. Spent 25 minutes preparing to see the patient (ex review of tests/chart), obtaining and / or reviewing separately obtained history, performing a medically appropriate examination and/or evaluation, counseling and educating the patient/family/caregiver, ordering medications, tests, or procedures, referring and communicating with other health career development associate, documenting clinical information in the electronic or other health record, independently interpreting results and communicating results to the patient/family/caregiver and care coordinating patient plan. Patient alert and oriented x 4 and aware of discussion noted above and in agreeance to plan in management of PCOS, type 2 DM, vit D def, obesity, weight management and ROBERTO. ?? * Procedure Codes:?92966 P/M C OUNSEL, INDIV 15 MIN, U0002 Covid-19 lab test non-cdc * Follow Up:?4 Months (Reason: labwork) * Billing Information: * Visit Code:? 07029 Office Visit, Est Pt., Level 4. Modifiers: 25 * Procedure Codes:? 71143 P/M SIGNAL INTELLIGENCE/ELECTRONIC WARFARE, INDIV 15 MIN. U0002 Covid-19 lab test non-cdc. * NSED VETERINARY TECHNICIAN Sign off status: Completed true * Provider:?Letha Carroll MD Date:? 5 Generated for Riki adams/Nathaly/Alanitting on:?06/23/2024 12:45 PM LICENSED VETERINARY TECHNICIAN History and Physical Notes * HPI (History of Present Illness) Category Sub-Category Detail Notes Category Not es Interval Hx 33 yo female comes in for follow up in management of weight/insulin resistance, PCOS, prolactinoma hx and autoimmune thyroiditis. Found to have prediabetes and vit D def. At her initial visit in [facility] we restarted bromocriptine 7.5 mg daily and added mounjaro for weight management. Thyroid and prolactin levels normal from [facility] labwork. Carla presented with a persistent cough, sinus congestion, and fatigue, with symptoms worsening at night and producing white sputum. She has a history of diabetes, PCOS, myasthenia gravis, and sleep apnea. Her diabetes management is currently challenged by insurance issues with Mounjaro coverage. She also reported recent episodes of diarrhea and missed her menstrual period this month. COVID-19 test was negative, and lab results showed elevated A1c and insulin levels. Treatment plans include managing her upper respiratory infection, exploring options for diabetes medication, and continuing current treatments for PCOS, GERD, and myasthenia gravis. The patient presents with a persistent cough that she just can't get rid of and sinus congestion. She reports the cough comes and goes, occurring mostly at night but also during the day. The patient has been experiencing white sputum production. These symptoms have been ongoing for a couple of days. She denies fever but reports feeling tired, and experiencing temperature fluctuations. The patient attributes some of her symptoms to improper dressing for cold weather and sleeping in a room where the heating system malfunctioned, blowing cold air instead of heat. She also mentions recent episodes of diarrhea at work. The patient has a history of diabetes and reports being out of metformin and insulin. She expresses interest in starting Mounjaro for blood sugar control but states insurance has not approved it. The patient also mentions not having had a menstrual period this month. Medical History - Diabetes (history of) - Polycystic ovarian syndrome (PCOS) - Myasthenia gravis - Sleep apnea - COVID-19 (3 previous infections) Current and Past Medications and Supplements - Famotidine (for heartburn) - Pyridostigmine (for myasthenia gravis) - Bromocriptine 7.5 mg - Trulicity (once a week) Social History - Occupation: employed, occupation not specified - Living situation: lives with spouse Review of Systems - General: Feeling unwell, fatigue - Respiratory: Persistent cough, sinus issues - Gastrointestinal: Diarrhea - ENT: Nasal congestion, especially at night - Thermoregulatory: Feeling hot then cold Examination Category Sub-Category Detail Notes Category Not es General Examination Neck, thyroid : supple Heart: BP wnl, RSR, no murm urs Lungs: normal, respirations easy with conversation and ambulation Abdomen: normal, round, non-d istended Extremities: unremarkable General normal, NAD, well no urished and hydrated, pleasant, obese female Neurologic exam: unremarkable Peripheral pulses: normal (2+) bilatera lly Psych: orientation to perso n, place & situation, appropriate judgment noted
--- OUTSIDE RECORDS SUMMARY | 2024-06-23 12:45 | XMS_ITS | Patient Health Record ---
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 Name Role Phone Letha Carroll Primary Care Provider [phone] Margy Chairez Unavailable [phone] Results Component Value Reference Range Notes COMPREHENSIVE METABOLIC PANE L Reviewed date:05/07/2024 07:51:49 PM Interpretation: Performing Lab:[facility], [address], [place], [address] Eleuterio Griffiths Notes/Report: VITAMIN D, 25-HYDROXY, LC/MS /MS Reviewed date:05/07/2024 07:51:49 PM Interpretation: Performing Lab:[facility], [address] [place], [address] Eleuterio Grfifiths MD Notes/Report: ACTH, PLASMA Reviewed date:05/12/2024 10:28:44 PM Interpretation: Performing Lab:Sam SANCHEZ/Angélica [facility], [address], [place], [address] Isrrael Graham M.D.,PhD Notes/Report: T3, FREE Reviewed date:05/07/2024 07:51:49 PM Interpretation: Performing Lab:[facility], [address] [place], [address] Eleuterio Griffiths MD Notes/Report: CORTISOL, TOTAL Reviewed date:05/07/2024 07:51:49 PM Interpretation: Performing Lab:[facility], [address] [place], [address] Eleuterio Griffiths MD Notes/Report: DHEA SULFATE Reviewed date:05/07/2024 07:51:49 PM Interpretation: Performing Lab:[facility], [address], [address] Eleuterio Griffiths MD Notes/Report: ESTRADIOL Reviewed date:05/07/2024 07:51:49 PM Interpretation: Performing Lab:Sam LAURENT [facility], [address] [place], [address] Eleuterio Griffiths Notes/Report: FSH Reviewed date:05/07/2024 07:51:49 PM Interpretation: Performing Lab:[facility], [address], [place], [address] Eleuterio Griffiths MD Notes/Report: HEMOGLOBIN A1c Reviewed date:05/07/2024 07:51:49 PM Interpretation: Performing Lab:ANASTASIIA [facility], [address] [place], [address] Eleuterio Griffiths Notes/Report: INSULIN Reviewed date:05/07/2024 07:51:49 PM Interpretation: Performing Lab:[facility], [address] [place], [address] Eleuterio Griffiths MD Notes/Report: LH Reviewed date:05/07/2024 07:51:49 PM Interpretation: Performing Lab:[facility], [address], [place], [place], [address] Eletuerio Griffiths MD Notes/Report: MAGNESIUM Reviewed date:05/07/2024 07:51:50 PM Interpretation: Performing Lab:ANASTASIIA, HAKIM [facility], [address] [place], [address] Eleuterio Griffiths Notes/Report: CBC (INCLUDES DIFF/PLT) Reviewed date:05/07/2024 07:51:50 PM Interpretation: Performing Lab:ANASTASIIA, HAKIM [facility], [address] [place], [address] Eleuterio Griffiths Notes/Report: VITAMIN B12/FOLATE, SERUM PA CASSI Reviewed date:05/07/2024 07:51:50 PM Interpretation: Performing Lab:KS, [facility], [address], [place], [address] Eleuterio Griffiths MD Notes/Report: PROGESTERONE Reviewed date:05/07/2024 07:51:50 PM Interpretation: Performing Lab:SL, [facility], [address] [place], [address] Eleuterio Griffiths Notes/Report: PROLACTIN Reviewed date:05/07/2024 07:51:50 PM Interpretation: Performing Lab:KS, [facility], [address], [place], [address] Eleuterio Griffiths MD Notes/Report: IRON AND TOTAL IRON BINDING CAPACITY Reviewed date:05/07/2024 07:51:50 PM Interpretation: Performing Lab:KS, [facility], [address], [place], [address] Eleuterio Griffiths MD Notes/Report: LIPID PANEL Reviewed date:05/07/2024 07:51:50 PM Interpretation: Performing Lab:SL, [facility], [address] [place], [address] PamShilpa Griffiths Notes/Report: T4, FREE Reviewed date:05/07/2024 07:51:50 PM Interpretation: Performing Lab:SL, [facility], [address] [place], [address] PamShilpa Griffiths Notes/Report: TSH Reviewed date:05/07/2024 07:51:50 PM Interpretation: Performing Lab:SL, [facility], [address] [place], [address] [facility] Notes/Report: TESTOSTERONE, FREE (DIALYSIS ) AND TOTAL,MS Reviewed date:05/12/2024 10:28:51 PM Interpretation: Performing Lab:[facility], [facility], [address] [address], [address], [place], [address] Amada Love MD,PhD Notes/Report: TESTOSTERONE, TOTAL, MS 27 2-45 ng/dL For additional information, please refer to https://education.[email or web address].com/faq/HJE991 (This link is being provided for informational/educational purposes only.) (Note) This test was developed and its analytical performance characteristics have been determined by [employer]. It has not been cleared or approved by the FDA. This assay has been validated pursuant to the CLIA regulations and is used for clinical purposes. TESTOSTERONE, FREE 5.3 0.1-6.4 pg/mL (Note) This test was developed and its analytical performance characteristics have been determined by [employer]. It has not been cleared or approved by the FDA. This assay has been validated pursuant to the CLIA regulations and is used for clinical purposes. [facility] [address] [address],[address] [place] [address] Amada Love MD, PhD Reason For Referral No Information Medications Medication SIG (Take, Route, Frequency, Duration) Notes Start Date End Date Status Famotidine 40 MG/5ML 5 mL Orally Once a day Active Ergocalciferol 1.25 MG (5000 0 UT) 1 capsule Orally weekly for 84 days 06/22/2024 Active Bromocriptine Mesylate 2.5 MG three tabl ets Orally Once a day for 90 days 04/27/2024 Active pyRIDostigmine [place] 60 MG 1 tablet Or ally every 4 hrs Active Mounjaro 2.5 MG/0.5ML inject 0.5ml Subcutaneous weekly for 30 days 06/22/2024 Active Mounjaro 5 MG/0.5ML inject 0.5ml Subcutaneous weekly for 90 days 06/22/2024 Active Azithromycin 250 MG 2 tablets on the , then 1 tablet daily for 4 days oral until complete for 5 days 06/22/2024 Active Benzonatate 100 MG 1 capsule as needed for cough Orally Three times a day for 10 days 06/22/2024 Active methylPREDNISolone 4 MG take as indicate d for medrol dose pack Orally daily for 6 days 06/22/2024 Active Problems Problem Type SNOMED Code ICD Code Onset Dates Problem Status W/U Status Risk Notes Problem Vitamin D deficiency (01937908) Vitamin D deficiency, unspecified (E55.9) Active confirmed Problem Hyperglycemia due to type 2 diabetes mellitus (998735290707649) Type 2 diabetes mellitus with hyperglycemia (E11.65) Active confirmed Problem Obesity (868300243) Obesity, uns pecified (E66.9) Active confirmed Problem Hyperprolactinemia (621142482) Hyperprolactinemia (E22.1) Active confirmed Problem Irregular menstruation (11686815) Irregular menstruation, unspecified (N92.6) Active confirmed Vital Signs Heart Rate 70 /min 06/22/2024 SPO2: 98% Blood pressure diastolic 72 mm Hg 06/22/2024 SPO 2: 98% Height 68 in 06/22/2024 SPO2: 98% Blood pressure systolic 117 mm Hg 06/22/2024 SPO2 : 98% Weight 253 lbs 06/22/2024 SPO2: 98% BMI 38.46 kg/m2 06/22/2024 SPO2: 98% Encounters Encounter Location Date Provider Diagnosis [facility] [address] [place] [address] 06/22/2024 Letha Carroll Hyperprolactinemia E 22.1 ; Type 2 diabetes mellitus with hyperglycemia E11.65 ; Irregular menstruation, unspecified N92.6 ; Vitamin D deficiency, unspecified E55.9 ; Acute upper respiratory infection, unspecified J06.9 ; Obesity, unspecified E66.9 and Dietary counseling and surveillance Z71.[address] [facility] [address] [place] [address] 04/27/2024 Letha Carroll Benign neoplasm of pituitary gland D35.2 ; Hyperprolactinemia E22.1 ; Insulin resistance, unspecified E88.819 ; Type 2 diabetes mellitus with hyperglycemia E11.65 ; Irregular menstruation, unspecified N92.6 ; Vitamin D deficiency, unspecified E55.9 ; Other fatigue R53.83 and Obesity, unspecified E66.[address] [facility] [address] [place] [address] 02/28/2024 Letha Carroll [facility] [address] [place] [address] 04/28/2024 Letha Carroll [facility] [address] [place] [address] 04/28/2024 Letha Carroll Insulin resistance, unspecified E88.819 [facility] [address] [place] [address] 04/28/2024 Letha Glen Obesity, unspecified E66.9 [facility] L[address] [address] [address] [place] [address] 04/28/2024 Letha Glen [facility] [address] [place] [address] 06/19/2024 Letha Glen [employer] [employer] [facility] [address] [place] [address] 06/22/2024 Letha Glen Assessments Encounter Date Diagnosis (ICD Code) Assessment Notes Treatment Notes Treatment Clinical Notes Section Notes 06/22/2024 Type 2 diabetes mellitus with hyperglycemia (ICD-10 - E11.65) 06/22/2024 Hyperprolactinemia (ICD-10 - E22.1) 04/27/2024 Benign neoplasm of pituitary gland (ICD-10 - D35.2) 04/27/2024 Hyperprolactinemia (ICD-10 - E22.1) 04/28/2024 Insulin resistance, unspecified (ICD-10 - E88.819) 04/28/2024 Obesity, unspecified (ICD-10 - E66.9) 06/22/2024 Irregular menstruation, unspecified (ICD-10 - N92.6) 04/27/2024 Insulin resistance, unspecified (ICD-10 - E88.819) 06/22/2024 Vitamin D deficiency, unspecified (ICD-10 - E55.9) 04/27/2024 Type 2 diabetes mellitus with hyperglycemia (ICD-10 - E11.65) 06/22/2024 Acute upper respiratory infection, unspecified (ICD-10 - J06.9) 04/27/2024 Irregular menstruation, unspecified (ICD-10 - N92.6) 04/27/2024 Vitamin D deficiency, unspecified (ICD-10 - E55.9) 06/22/2024 Obesity, unspecified (ICD-10 - E66.9) 04/27/2024 Other fatigue (ICD-10 - R53.83) 06/22/2024 Dietary counseling and surveillance (ICD-10 - Z71.3) 04/27/2024 Obesity, unspecified (ICD-10 - E66.9) 04/27/2024 Other Assessment and Plan: 1. Hypothyroidism- Patient is currently not on levothyroxine or methimazole.- Plan: Check thyroid levels and consider initiating or adjusting thyroid medication based on results. 2. Hyperprolactinemia- Patient is on bromocriptine 2.5 mg three times a day and cabergoline 5 mg twice weekly.- Plan: Continue bromocriptine and cabergoline as prescribed. Monitor prolactin levels and adjust medications as needed. 3. Weight loss- Patient has lost 20 pounds on her own and is currently not on Trulicity due to insurance authorization issues.- Plan: Switch to Mounjaro autoinjector with step titration for weight loss. Obtain insurance authorization for Trulicity 0.75 mg if needed. Encourage patient to continue with dietary modifications and exercise. Patient previously with insulin resistance and borderline DM. 4. Fertility issues- Patient has a history of fertility issues and is currently not trying to get .- Plan: No active intervention at this time. Revisit fertility concerns if patient decides to try for in the future. 5. Irregular menstrual cycles- Patient reports irregular cycles and plans to see her doctor for control pills to help regulate them.- Plan: Support patient's decision to seek control for cycle regulation. Monitor for any changes in menstrual patterns. 6. Constipation- Patient reports difficulty going to the bathroom every 2 to 3 days.- Plan: Encourage patient to increase fiber intake and hydration. Monitor bowel habits and consider initiating a stool softener or laxative if constipation worsens or persists. 7. Cortisol level check- Plan: Order blood work to check cortisol levels and adjust treatment as needed. 8. Myasthenia gravis evaluation- Patient has an appointment with a neurologist next year for evaluation.- Plan: Await neurologist's assessment and recommendations. Follow up on results and adjust treatment plan accordingly. 9. Pharmacy- Plan: Send prescriptions to [facility] for patient convenience. Follow-up:- Schedule a follow-up appointment to review blood work results, assess medication effectiveness, and address any new concerns. Spent 45 minutes preparing to see the patient (ex review of tests/chart), obtaining and / or reviewing separately obtained history, performing a medically appropriate examination and/or evaluation, counseling and educating the patient/family/[facility] mart[facility], ordering medications, tests, or procedures, referring and communicating with other health furnace caretaker, documenting clinical information in the electronic or other health record, independently interpreting results and communicating results to the patient/family/caregi martín and care coordinating patient plan. Patient alert and oriented x 4 and aware of discussion noted above and in agreeance to plan in management of hyperprolactinemia, PCOS, insulin resistance/obesity/we ight management and type 2 DM. 06/22/2024 Other Assessment and Plan: Upper Respiratory [...] procedures, referring and communicating with other health furnace caretaker, documenting clinical information in the electronic or other health record, independently interpreting results and communicating results to the patient/family/caregi martín and care coordinating patient plan. Patient alert and oriented x 4 and aware of discussion noted above and in agreeance to plan in management of PCOS, type 2 DM, vit D def, obesity, weight management and ROBERTO. Plan Of Treatment Next Appt Details Provider Name:Letha Carroll, 10:00:00 AM, [address] , [place], [address], Insurance Providers Payer Name Payer Address Payer Phone Subscriber Number Group Number Insured Name Patient Relationship to Insured Coverage Start Date Coverage End Date [facility] [address] [place] [address] [id number] ALEIDA DAVIS Self - patient is the insured Medical (General) History Medical History History ICD Code PCOS vitamin D deficiency type 2 DM
--- OUTSIDE RECORDS SUMMARY | 2024-06-23 12:46 | XMS_ITS ---
Author Organization [facility] Address [address] [facility] [place] [address] Care Team Providers Care Director Of Digital Platforms Name Role Phone Letha Carroll Primary Care Provider [phone] Encounters Encounter Location Date Provider Diagnosis [facility] - Letha Carroll [address] [place] [address] 06/19/2024 Letha Carroll Plan Of Treatment Next Appt Details Provider Name:Letha Carroll, 10:00:00 AM, [address], [place], [address], Progress Notes * GARCIA DAVISADOB:1990 (33 yo F)Acc No.[id number]:06/19/2024 Patient:?GARCIA DAVISTyler :1990???Age:33 Y???Sex:Female Address:[address] [place] [address], [address] * true * Date:? 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
--- OUTSIDE RECORDS SUMMARY | 2024-06-23 12:46 | XMS_ITS | Data Portability ---
Author Organization [facility] [place] P[facility] Address [address] [facility] [place] [address] Care Team Providers Care Foot Worker Name Role Phone EVELIA DWYER Primary Care Provider Unavailabl e Assessment No assessment recorded. Plan of Treatment Reminders Order Date Submit Date Provider Last Modified By Organization Details Last Modified Time Details Appointments PROC 30 2024 10:00A M MABLE LOPEZ Not available Not available Not available Lab HbA1c (hemoglob in A1c), blood 2023 024 [facility], [facility], [address], [place], [address], 12/31/2023 16:02:51 CMP, serum or plasma 2023 024 [place] [facility], [facility], [address], [place], [address], 08/30/2023 08:25:01 lipid panel, serum 2023 024 [place] [facility], [facility], [address], [place], [address], 08/30/2023 08:25:00 CBC w/ auto diff 2023 024 [place] [facility], [facility], [address], [place], [address], 08/30/2023 08:25:05 TSH, ultra-sen sitive, serum 2023 024 [facility], [address], [address], [place], [address], 08/30/2023 08:25:02 vitamin D, 25-hydrox y, total, serum 2023 024 [facility], [address] [place] [address], [address], [place], [address], 08/30/2023 08:25:06 iron + total iron-bind ing capacity (TIBC), serum 2023 024 [facility], [address] [place] [address], [address], [place], [address], 08/30/2023 08:25:04 cytology report, thin prep, smear or scraping, cervical or vaginal 2023 024 [place] [facility], [address] [place] [address], [address], [place], [address], 05/14/2024 06:38:[address] referral 2023 024 [facility], [address], [address], [place], [address], 02/11/2024 16:44:25 endocrino logy referral [email or web address] [place] [address] Referrals, [address] [facility], [place], [address], 09/30/2023 09:42:[address] referral - Myastheni a gravis 2023 024 [facility], [address], [address], [place], [address], 02/25/2024 12:17:47 endocrino logy referral 2023 024 [email or web address], [address] [facility], [place], [address], 02/11/2024 17:09:32 infertili ty reproduct melissa endocrino logy referral 2023 024 [facility], [address] [place], [address], 05/21/2024 16:04:29 Procedures None recorded. Surgeries None recorded. Imaging None recorded. Medication Orders Victoza 3-Ty 0.6 mg/0.1 mL (18 mg/3 mL) subcutane ous pen injector 2023 024 [facility], [address] [place] [address], [id number], 09/18/2023 16:03:31 Trulicity 0.75 mg/0.5 mL subcutane ous pen injector 2023 024 [facility], [address] [place], [id number], 10/07/2023 14:34:17 pyridosti gmine bromide 60 mg tablet 2023 024 [facility], [address] [place], [address], 02/11/2024 17:09:33 bromocrip edson 2.5 mg tablet 2023 024 [facility], [address] [place], [address], 02/11/2024 17:09:31 Patient TargetsNo targets recorded. Patient Instructions Encounter Date Encounter Id Patient Instructions Last Modified By Organization Details Last Modified Time 08/29/2023 [id number] A healthy lifestyle: care instructions Not available 08/29/2023 12:19:38 09/11/2023 [id number] A healthy lifestyle: care instructions Not available 09/11/2023 16:51:21 09/18/2023 [id number] A healthy lifestyle: care instructions Not available 09/18/2023 14:56:46 02/11/2024 [id number] A healthy lifestyle: care instructions Not available 02/11/2024 17:09:25 Reason for Referral Endocrinology Referral for N eoplasm of pituitary gland Referring Physician: Evelia Dwyer [facility], Encounter Date: 08/29/2023 Neurologist Referral for Fartun sthenia gravis Referring Physician: Evelia Dwyer [facility], Encounter Date: 08/29/2023 Endocrinology Referral for N eoplasm of pituitary gland Referring Physician: Evelia Dwyer [facility], Encounter Date: 02/11/2024 Neurologist Referral for Fartun sthenia gravis Myasthenia gravis Referring Physician: Evelia Dwyer [facility], Encounter Date: 02/11/2024 Infertility Reproductive End ocrinology Referral for Female infertility Referring Physician: Sharon Clay [facility], Encounter Date: 05/07/2024 Results Created Date Observation Date Name Description Value Unit Range Abnormal Flag Note LastModifiedBy Organization Detail LastModifiedTime 08/29/1908/30/2023 LIPID PANEL cholesterol, total 179 mg/dL 100-19 9 Not Available [facility] ([facility]) [address], [place], [address], 08/30/2023 08:25:00 08/29/1908/30/2023 LIPID PANEL triglyceride s 51 mg/dL 0-149 Not Available [facility] ([facility]) [address], [place], [address], 08/30/2023 08:25:00 08/29/1908/30/2023 LIPID PANEL HDL cholesterol 69 mg/dL >39 Not Available [facility] ([facility]) [address], [place], [address], 08/30/2023 08:25:00 08/29/19 24 08/30/2023 LIPID PANEL VLDL cholesterol rikki 10 mg/dL 5-40 Not Available [facility] ([facility]) [address] [place], [address], 08/30/2023 08:25:00 08/29/19 24 08/30/2023 LIPID PANEL LDL chol calc ([facility]) 100 mg/dL 0-99 above high normal Not Available [facility] ([facility]) [address] [place], [address], 08/30/2023 08:25:00 08/29/19 24 08/30/2023 COMP. METAB OLIC PANEL (14) glucose 94 mg/dL 70-99 Not Available [facility] ([facility]) [address] [place], [address], 08/30/2023 08:25:01 08/29/19 24 08/30/2023 COMP. METAB OLIC PANEL (14) BUN 8 mg/dL 6-20 Not Available [facility] ([facility]) [address] [place], [address], 08/30/2023 08:25:01 08/29/19 24 08/30/2023 COMP. METAB OLIC PANEL (14) creatinine 0.63 mg/dL 0.57-1 .00 Not Available [facility] ([facility]) [address] [place], [address], 08/30/2023 08:25:01 08/29/19 24 08/30/2023 COMP. METAB OLIC PANEL (14) eGFR 119 mL/mi n/1.7 3 >59 Not Available [facility] ([facility]) [address] [place], [address], 08/30/2023 08:25:01 08/29/19 24 08/30/2023 COMP. METAB OLIC PANEL (14) BUN/creatini ne ratio 13 9-23 Not Available [facility] ([facility]) [address], [place], [address], 08/30/2023 08:25:01 08/29/19 24 08/30/2023 COMP. METAB OLIC PANEL (14) sodium 138 mmol/ L 134-14 4 Not Available [facility] ([facility]) [address], [place], [address], 08/30/2023 08:25:01 08/29/19 24 08/30/2023 COMP. METAB OLIC PANEL (14) potassium 4.3 mmol/ L 3.5-5. 2 Not Available [facility] ([facility]) [address], [place], [address], 08/30/2023 08:25:01 08/29/19 24 08/30/2023 COMP. METAB OLIC PANEL (14) chloride 100 mmol/ L 96-106 Not Available [facility] ([facility]) [address], [place], [address], 08/30/2023 08:25:01 08/29/19 24 08/30/2023 COMP. METAB OLIC PANEL (14) carbon dioxide, total 23 mmol/ L 20-29 Not Available [facility] ([facility]) [address], [place], [address], 08/30/2023 08:25:01 08/29/19 24 08/30/2023 COMP. METAB OLIC PANEL (14) calcium 9.1 mg/dL 8.7-10 .2 Not Available [facility] ([facility]) [address] [place], [address], 08/30/2023 08:25:01 08/29/19 24 08/30/2023 COMP. METAB OLIC PANEL (14) protein, total 7.2 g/dL 6.0-8. 5 Not Available [facility] ([facility]) [address] [place], [address], 08/30/2023 08:25:01 08/29/19 24 08/30/2023 COMP. METAB OLIC PANEL (14) albumin 4.3 g/dL 3.9-4. 9 Not Available [facility] ([facility]) [address], [place], [address], 08/30/2023 08:25:01 08/29/19 24 08/30/2023 COMP. METAB OLIC PANEL (14) globulin, total 2.9 g/dL 1.5-4. 5 Not Available [facility] ([facility]) [address] [place], [address], 08/30/2023 08:25:01 08/29/19 24 08/30/2023 COMP. METAB OLIC PANEL (14) A/G ratio 1.5 1.2-2. 2 Not Available [facility] ([facility]) [address], [place], [address], 08/30/2023 08:25:01 08/29/19 24 08/30/2023 COMP. METAB OLIC PANEL (14) bilirubin, total 0.5 mg/dL 0.0-1. 2 Not Available [facility] ([facility]) [address], [place], [address], 08/30/2023 08:25:01 08/29/19 24 08/30/2023 COMP. METAB OLIC PANEL (14) alkaline phosphatase 94 IU/L 44-121 Not Available [facility] ([facility]) [address], [place], [address], 08/30/2023 08:25:01 08/29/19 24 08/30/2023 COMP. METAB OLIC PANEL (14) AST (SGOT) 12 IU/L 0-40 Not Available [facility] ([facility]) [address] [place], [address], 08/30/2023 08:25:01 08/29/19 24 08/30/2023 COMP. METAB OLIC PANEL (14) ALT (SGPT) 14 IU/L 0-32 Not Available [facility] ([facility]) [address], [place], [address], 08/30/2023 08:25:01 08/29/19 24 08/30/2023 TSH RFX ON ABNOR MAL TO FREE T4 TSH 0.488 uIU/m L 0.450- 4.500 Not Available [facility] ([facility]) [address], [place], [address], 08/30/2023 08:25:02 08/29/19 24 08/30/2023 IRON AND TIBC iron bind.cap.(TI BC) 397 ug/dL 250-45 0 Not Available [facility] ([facility]) [address], [place], [address], 08/30/2023 08:25:03 08/29/19 24 08/30/2023 IRON AND TIBC UIBC 301 ug/dL 131-42 5 Not Available [facility] ([facility]) [address] [place], [address], 08/30/2023 08:25:03 08/29/19 24 08/30/2023 IRON AND TIBC iron 96 ug/dL 27-159 Not Available [facility] ([facility]) [address] [place], [address], 08/30/2023 08:25:03 08/29/19 24 08/30/2023 IRON AND TIBC iron saturation 24 % 15-55 Not Available [facility] ([facility]) [address] [place], [address], 08/30/2023 08:25:03 08/29/19 24 08/30/2023 CBC WITH DIFFE RENTI AL/PL ATELE T WBC 4.5 x10e3 /uL 3.4-10 .8 Not Available [facility] ([facility]) [address], [place], [address], 08/30/2023 08:25:05 08/29/19 24 08/30/2023 CBC WITH DIFFE RENTI AL/PL ATELE T RBC 4.34 x10e6 /uL 3.77-5 .28 Not Available [facility] ([facility]) [address], [place], [address], 08/30/2023 08:25:05 08/29/19 24 08/30/2023 CBC WITH DIFFE RENTI AL/PL ATELE T hemoglobin 11.6 g/dL 11.1-1 5.9 Not Available [facility] ([facility]) [address], [place], [address], 08/30/2023 08:25:05 08/29/19 24 08/30/2023 CBC WITH DIFFE RENTI AL/PL ATELE T hematocrit 35.3 % 34.0-4 6.6 Not Available [facility] ([facility]) [address] [place], [address], 08/30/2023 08:25:05 08/29/19 24 08/30/2023 CBC WITH DIFFE RENTI AL/PL ATELE T MCV 81 fL 79-97 Not Available [facility] ([facility]) [address] [place], [address], 08/30/2023 08:25:05 08/29/19 24 08/30/2023 CBC WITH DIFFE RENTI AL/PL ATELE T MCH 26.7 pg 26.6-3 3.0 Not Available [facility] ([facility]) [address] [place], [address], 08/30/2023 08:25:05 08/29/19 24 08/30/2023 CBC WITH DIFFE RENTI AL/PL ATELE T MCHC 32.9 g/dL 31.5-3 5.7 Not Available [facility] ([facility]) [address], [place], [address], 08/30/2023 08:25:05 08/29/19 24 08/30/2023 CBC WITH DIFFE RENTI AL/PL ATELE T RDW 13.9 % 11.7-1 5.4 Not Available [facility] ([facility]) [address], [place], [address], 08/30/2023 08:25:05 08/29/19 24 08/30/2023 CBC WITH DIFFE RENTI AL/PL ATELE T platelets 340 x10e3 /uL 150-45 0 Not Available [facility] ([facility]) [address], [place], [address], 08/30/2023 08:25:05 08/29/19 24 08/30/2023 CBC WITH DIFFE RENTI AL/PL ATELE T neutrophils 44 % notest ab. Not Available [facility] ([facility]) [address], [place], [address], 08/30/2023 08:25:05 08/29/19 24 08/30/2023 CBC WITH DIFFE RENTI AL/PL ATELE T lymphs 42 % notest ab. Not Available [facility] ([facility]) [address], [place], [address], 08/30/2023 08:25:05 08/29/19 24 08/30/2023 CBC WITH DIFFE RENTI AL/PL ATELE T monocytes 14 % notest ab. Not Available [facility] ([facility]) [address], [place], [address], 08/30/2023 08:25:05 08/29/19 24 08/30/2023 CBC WITH DIFFE RENTI AL/PL ATELE T eos 0 % notest ab. Not Available [facility] ([facility]) [address], [place], [address], 08/30/2023 08:25:05 08/29/19 24 08/30/2023 CBC WITH DIFFE RENTI AL/PL ATELE T basos 0 % notest ab. Not Available [facility] ([facility]) [address], [place], [address], 08/30/2023 08:25:05 08/29/19 24 08/30/2023 CBC WITH DIFFE RENTI AL/PL ATELE T neutrophils (absolute) 2.0 x10e3 /uL 1.4-7. 0 Not Available [facility] ([facility]) [address], [place], [address], 08/30/2023 08:25:05 08/29/19 24 08/30/2023 CBC WITH DIFFE RENTI AL/PL ATELE T lymphs (absolute) 1.9 x10e3 /uL 0.7-3. 1 Not Available [facility] ([facility]) [address], [place], [address], 08/30/2023 08:25:05 08/29/19 24 08/30/2023 CBC WITH DIFFE RENTI AL/PL ATELE T monocytes(ab solute) 0.6 x10e3 /uL 0.1-0. 9 Not Available [facility] ([facility]) [address], [place], [address], 08/30/2023 08:25:05 08/29/19 24 08/30/2023 CBC WITH DIFFE RENTI AL/PL ATELE T eos (absolute) 0.0 x10e3 /uL 0.0-0. 4 Not Available [facility] ([facility]) [address], [place], [address], 08/30/2023 08:25:05 08/29/19 24 08/30/2023 CBC WITH DIFFE RENTI AL/PL ATELE T baso (absolute) 0.0 x10e3 /uL 0.0-0. 2 Not Available [facility] ([facility]) [address], [place], [address], 08/30/2023 08:25:05 08/29/19 24 08/30/2023 CBC WITH DIFFE RENTI AL/PL ATELE T immature granulocytes 0 % notest ab. Not Available [facility] ([facility]) [address], [place], [address], 08/30/2023 08:25:05 08/29/19 24 08/30/2023 CBC WITH DIFFE RENTI AL/PL ATELE T immature grans (abs) 0.0 x10e3 /uL 0.0-0. 1 Not Available [facility] ([facility]) [address], [place], [address], 08/30/2023 08:25:05 08/29/19 24 08/30/2023 VITAM IN D, 25-HY DROXY vitamin D, 25-hydroxy 12.2 NG/mL 30.0-1 00.0 below low normal Vitam in D defic iency has been defin ed by the Insti tute of Medic ine and an Endoc rine Socie ty pract ice guide line as a level of serum 25-OH vitam in D less than 20 ng/mL (1,2) . The Endoc rine Socie ty went on to [facility] er defin e vitam in D insuf ficie ncy as a level betwe en 21 and 29 ng/mL (2). 1. IOM (Inst itute of Medic ine). 2010. Dieta ry refer ence intak es for calci um and D. Jennifer snyder [place]: The [facility] Press . 2. Mary pillai [place], Stephane lyles [place], Florin off-F anaar i PORTILLO, et al. Evalu ation , treat ment, and preve ntion of vitam in D defic iency : an Endoc rine Socie ty clini rikki pract ice guide line. JCEM. 2010; 96(7) :1911 -30. Not Available [facility] ([facility]) [address] [place], [address], 08/30/2023 08:25:06 05/07/20 24 05/09/2024 IGP, APTIM A HPV, RFX 16/18 ,45 HPV aptima POSITI VE negati ve abnormal This nucle ic acid ampli ficat ion test detec ts fourt een high- risk HPV types (16,1 8,31, 33,35 ,39,4 5,51, 52,56 ,58,5 9,66, 68) witho ut diffe renti ation . Not Available [facility] ([facility]) [address], [place], [address], 05/14/2024 06:38:04 05/07/20 24 05/13/2024 IGP, APTIM A HPV, RFX 16/18 ,45 diagnosis: YAMEL Mccormick NEGAT MELISSA FOR INTRA EPITH ELIAL LORENZO Graves OR YUNIEL JOHN . Not Available [facility] ([facility]) [address], [place], [address], 05/14/2024 06:38:04 05/07/20 24 05/13/2024 IGP, APTIM A HPV, RFX 16/18 ,45 specimen adequacy: YAMEL Mccormick Satis facto ry for evalu ation . No endoc ervic al compo nent is ident ified . Not Available [facility] ([facility]) [address], [place], [address], 05/14/2024 06:38:04 05/07/20 24 05/13/2024 IGP, APTIM A HPV, RFX 16/18 ,45 clinician provided ICD10: YAMEL Mccormick Z12.4 Not Available [facility] ([facility]) [address], [place], [address], 05/14/2024 06:38:04 05/07/20 24 05/13/2024 IGP, APTIM A HPV, RFX 16/18 ,45 performed by: COMMEN T Staci Watso n, Cytot echno logis t (ASCP ) Not Available [facility] ([facility]) [address], [place], [address], 05/14/2024 06:38:04 05/07/20 24 05/13/2024 IGP, APTIM A HPV, RFX 16/18 ,45 . . Not Available [facility] ([facility]) [address], [place], [address], 05/14/2024 06:38:04 05/07/20 24 05/13/2024 IGP, APTIM A HPV, RFX 16/18 ,45 note: COMMEN T The Pap smear is a scree osiris test desyonatan dennis to aid in the detec tion of jack ligna nt and malig nant condi tions of the uteri ne cervi x. It is not a diagn ostic proce dure and shoul d not be used as the sole means of detec ting cervi rikki cance r. Both false -posi tive and false -nega tive repor ts do occur . Not Available [facility] ([facility]) [address], [place], [address], 05/14/2024 06:38:04 05/07/20 24 05/13/2024 IGP, APTIM A HPV, RFX 16/18 ,45 test methodology: YAMEL T This liqui d based ThinP rep(R ) pap test was scree jeannie with the use of an image guide d systgreta m. Not Available [facility] ([facility]) [address], [place], [address], 05/14/2024 06:38:04 05/07/20 24 05/13/2024 IGP, APTIM A HPV, RFX 16/18 ,45 HPV genotype reflex COMMEN T Crite pankaj met, see HPV Genot ype resul ts. Not Available [facility] ([facility]) [address], [place], [address], 05/14/2024 06:38:04 05/07/20 24 05/13/2024 HPV GENOT YPES 16/18 ,45 HPV genotype 16 Negati ve negati ve Not Available [facility] ([facility]) [address], [place], [address], 05/14/2024 06:38:06 05/07/20 24 05/13/2024 HPV GENOT YPES 16/18 ,45 HPV genotype 18,45 Negati ve negati ve Not Available [facility] ([facility]) [address], [place], [address], 05/14/2024 06:38:06 Result Notes None recorded. 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, [place], [address] , [place] - [facility] 0 16:20:52 Sexual exposure 5220996 Completed 201706/26/2019 ALIS VENTURA Attn: Accounting ,[address] [facility], [place], [address] , [place] [facility] 0 14:24:46 Obesity 892104837 Active 2017 Not Available [facility] 3 22:51:14 Myasthen ia gravis 98792319 Active 2017 Not Available [facility] 3 22:51:14 Vaginiti s 58398327 Completed 201806/26/2019 ALIS VENTURA Attn: Accounting ,[address] 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, [place], [address] , [place] [facility] 0 14:22:24 Ankle pain 105811336 Completed 201604/08/2020 Removal Reason: resolved MARY ELIJAH, DIRECTOR OF ACCOUNTING-C Attn: Accounting ,[address] [place], [address] , [place] [facility] 0 14:22:31 Swollen ankle region 012759356 Completed 201607/08/2019 MARYTyler NAVA, DIRECTOR OF ACCOUNTING-C Attn: Accounting ,[address] [place], [address] , [place] [facility] 0 16:20:41 Problem Notes None recorded. Procedures Surgical History Date Name Laterality Status Provider Name and Address Organization Details Recorded Time 05/07/20 24 Date of Last Pap Smear completed Julissa Daly [place] - [place] 06/11/2024 17:06:27 10/30/19 23 Routine Foot Care completed BUD COUCH DPM [address], [place], [address], [facility] - [facility] 10/29/2022 14:53:50 07/16/19 23 Routine Foot Care completed BUD COUCH DPM [address], [place], [address], [place] 07/16/2022 10:29:40 03/26/20 22 Routine Foot Care completed BUD COUCH DPM [address], [place], [address], [facility] - [facility] 03/26/2022 16:58:04 12/12/19 22 Routine Foot Care completed BUD COUCH DPM [address], [place], [address], [facility] - [facility] 12/11/2021 12:50:34 09/09/19 22 Nail Debridement completed BUD COUCH DPM [address], [place], [address], [facility] - [facility] 09/08/2021 12:52:25 04/11/20 21 Nail Debridement completed BUD COUCH DPM [address], [place], [address], [facility] - [facility] 04/11/2021 15:38:25 12/24/19 21 Colposcopy completed Karel Peña [place] - [facility] 12/23/2020 10:58:06 12/09/19 21 Nail Debridement completed BUD COUCH DPM [address], [place], [address], [facility] - [facility] 12/08/2020 12:00:32 09/17/19 21 Nail Debridement completed BUD COUCH DPM [address], [place], [address], [facility] - [facility] 09/16/2020 17:17:55 07/16/19 20 open reduction of dislocation of ankle completed Ozzie Carpio MD [address], [place], [address], [facility] - [facility] 08/17/2019 14:40:19 07/16/19 20 OPEN REDUCTION INTERNAL FIXATION, BIMALLEOLAR FRACTURE (SURG) completed Ozzie Carpio MD [address] [place], [address], [facility] - [facility] 12/17/2019 11:33:18 07/12/19 20 repair of ankle completed Julissa Daly [place] - [facility] 10/14/2020 14:07:58 03/12/20 19 [facility]/12/2019 15:10:16 Unlisted px ant segment eye completed Julissa Daly [place] - [facility] 05/18/2016 09:40:58 [facility]18/2017 18:30:06 Imaging Results None recorded. Procedure Notes None recorded. Medical Equipment None Reported. Allergies No known drug allergies Medications Name Sig Start Date Stop Date Status Note LastModified by Organization Details LastModified Time Prescript ion - Prior Authoriza tion Request 06/26 completed Endocrin ology prior authoriz ation Not Available Not Available Not Available cyclobenz aprine 10 mg tablet TAKE 1 TABLET BY MOUTH THREE TIMES DAILY FOR 5 DAYS 08/28 completed Not Available Not Available Not Available medroxypr ogesteron e 10 mg tablet Take 1 tablet every day by oral route for 10 days. 06/15 completed Not Available Not Available Not Available terbinafi ne HCl 1 % topical cream APPLY CREAM TOPICALL Y TO AFFECTED AND SURROUND ED AREAS TWICE DAILY FOR 30 DAYS OR UNTIL SYMPTOMS RESOLVE 08/26 completed Not Available Not Available Not Available terconazo le 0.4 % vaginal cream 01/09 completed Not Available Not Available Not Available azelastin e 0.05 % eye drops 01/09 completed Not Available Not Available Not Available prednison e 10 mg tablet Take 30 tablets by oral route. 09/04 completed Not Available Not Available Not Available lidocaine 4 % topical patch Apply 1 patch every day by topical route. 08/28 completed Not Available Not Available Not Available ammonium lactate 12 % lotion APPLY LOTION TOPICALL Y TWICE DAILY 05/07 completed Not Available Not Available Not Available polyethyl nidia glycol 3350 17 gram oral powder packet 06/26 completed Not Available Not Available Not Available triamcino lone acetonide 0.5 % topical cream APPLY A THIN LAYER TO THE AFFECTED AREA(S) BY TOPICAL ROUTE 2 TIMES PER DAY 08/26 completed Not Available Not Available Not Available cetirizin e 10 mg tablet Take 1 tablet every day by oral route as needed for 30 days. 06/26 completed Not Available Not Available Not Available ibuprofen 800 mg tablet TAKE 1 TABLET BY MOUTH THREE TIMES DAILY NEEDED 05/07 completed Not Available Not Available Not Available meloxicam 15 mg tablet 01/07 completed Not Available Not Available Not Available Elidel 1 % topical cream apply to affected areas on the body BID x 2 weeks, stop and apply Betameth asone BID x 2 weeks. Repeat. 08/26 completed Not Available Not Available Not Available famotidin e 40 mg tablet Take 1 tablet by mouth once daily 2023 active Not Available Not Available Not Avai lable ceftriaxo ne 250 mg solution for injection Take 250 mg by injectio n route. 12/25 completed Not Available Not Available Not Available propranol ol ER 60 mg capsule,2 4 hr,extend ed release 05/07 completed Not Available Not Available Not Available gabapenti n 400 mg capsule TAKE 1 CAPSULE BY MOUTH THREE TIMES DAILY 08/28 completed Not Available Not Available Not Available terconazo le 0.8 % vaginal cream 01/09 completed Not Available Not Available Not Available Excedrin Migraine 250 mg-250 mg-65 mg tablet Take 2 tablets as needed by oral route. 06/26 completed Not Available Not Available Not Available Diflucan 150 mg tablet Take 1 tablet by oral route for 1 day. 01/09 completed Not Available Not Available Not Available metronida zole 500 mg tablet Take 1 tablet every 12 hours by oral route for 7 days. 08/26 completed Not Available Not Available Not Available levofloxa masha 250 mg tablet 01/17 completed Not Available Not Available Not Available ciproflox acin 500 mg tablet 09/08 completed Not Available Not Available Not Available tramadol 50 mg tablet Take 1 tablet twice a day by oral route as needed. 09/08 completed Not Available Not Available Not Available levothyro xine 25 mcg tablet 08/28 completed Not Available Not Available Not Available ketorolac 10 mg tablet 06/26 completed Not Available Not Available Not Available mycopheno late mofetil 500 mg tablet 05/07 completed Not Available Not Available Not Available Miconazol e-7 2 % vaginal cream Insert 1 applicat orful every day by vaginal route. 01/09 completed Not Available Not Available Not Available meloxicam 7.5 mg tablet Take 1 tablet every day by oral route with meals. 08/28 completed Not Available Not Available Not Available oxycodone -acetamin ophen 5 mg-325 mg tablet 12/18 completed Not Available Not Available Not Available terbinafi ne HCl 250 mg tablet Take 1 tablet every day by oral route for 14 days. 08/28 completed Not Available Not Available Not Available amoxicill in 875 mg tablet 01/07 completed Not Available Not Available Not Available amitripty line 25 mg tablet Take 1 tablet every day by oral route. 08/26 completed Not Available Not Available Not Available methocarb justin 750 mg tablet TAKE 1 TABLET BY MOUTH THREE TIMES DAILY 08/28 completed Not Available Not Available Not Available dexametha sone 1 mg tablet active Not Available Not Available Not Available cephalexi n 500 mg capsule 01/07 completed Not Available Not Available Not Available erythromy masha 5 mg/gram (0.5 %) eye ointment 09/04 completed Not Available Not Available Not Available pyridosti gmine bromide 60 mg tablet TAKE 1 TABLET BY MOUTH 4 TIMES DAILY active Not Available Not Available No t Available TheraTear s 0.25 % eye drops Apply 1 drop 3 times a day by ophthalm ic route around the clock for 30 days. 06/26 completed Not Available Not Available Not Available lidocaine 5 % topical patch APPLY 1 PATCH TOPICALL Y DAILY. LEAVE ON MOST PAINFUL AREA FOR UP TO 12 HOURS. 08/28 completed Not Available Not Available Not Available cabergoli ne 0.5 mg tablet 08/28 completed Not Available Not Available Not Available indometha masha 50 mg capsule Take 1 capsule every 8 hours by oral route as needed. 07/25 completed Not Available Not Available Not Available gabapenti n 300 mg capsule Take 1 capsule 3 times a day by oral route for 30 days. 08/28 completed Not Available Not Available Not Available omeprazol e 20 mg capsule,d elayed release Take 1 capsule every day by oral route before meals for 90 days. 05/07 completed Not Available Not Available Not Available diclofena c sodium 75 mg tablet,de layed release Take 1 tablet twice a day by oral route. 08/28 completed Not Available Not Available Not Available hydroxyzi ne HCl 25 mg tablet Take 1 tablet 3 times a day by oral route as needed. 06/26 completed Not Available Not Available Not Available codeine 10 mg-guaife nesin 100 mg/5 mL oral liquid Take 10 mL as needed by oral route at bedtime. 09/04 completed Not Available Not Available Not Available ergocalci ferol (vitamin D2) 1,250 mcg (50,000 unit) capsule Take 1 capsule every week by oral route. 04/08 completed Recheck lab next in-offic e visit (October) Not Available Not Available Not Available ibuprofen 600 mg tablet TAKE 1 TABLET BY MOUTH THREE TIMES DAILY NEEDED FOR PAIN 12/07 completed Not Available Not Available Not Available bromocrip edson 2.5 mg tablet TAKE 1 TABLET BY MOUTH THREE TIMES DAILY active Not Available Not Available No t Available polyethyl nidia glycol 3350 17 gram/dose oral powder 12/18 completed Not Available Not Available Not Available levofloxa masha 500 mg tablet 09/08 completed Not Available Not Available Not Available letrozole 2.5 mg tablet TAKE 1 TABLET BY MOUTH ONCE DAILY ON CYCLE DAYS 3-7 08/28 completed Not Available Not Available Not Available ketoconaz ole 2 % topical cream APPLY TO THE AFFECTED AREA(S) BY TOPICAL ROUTE ONCE DAILY 05/07 completed Not Available Not Available Not Available betametha sone dipropion ate 0.05 % topical ointment apply to affected areas on the body BID x 2 weeks, stop and apply Elidel BID x 2 weeks. Repeat alternat ing. 08/26 completed Not Available Not Available Not Available ondansetr on 4 mg disintegr ating tablet 10/14 completed Not Available Not Available Not Available fluticaso ne propionat e 50 mcg/actua tion nasal spray,julian pension Golden 2 sprays every day by intranas al route as directed for 90 days. 08/28 completed Not Available Not Available Not Available metformin ER 500 mg tablet,ex tended release 24 hr TAKE 2 TABLETS BY MOUTH TWICE DAILY BEFORE MEAL(S) 05/07 completed Not Available Not Available Not Available Monistat 1 Combo Pack 1,200 mg-2 % vaginal ovule and cream Insert 1 vaginal insert every day by vaginal route for 7 days. 01/09 completed Not Available Not Available Not Available loratadin e 10 mg tablet Take 1 tablet every day by oral route. 01/07 completed Not Available Not Available Not Available Artificia l Tears (polyviny l alcohol) 1.4 % eye drops 08/26 completed Not Available Not Available Not Available Oyster Shell Calcium-V itamin D3 500 mg-5 mcg (200 unit) tablet 05/18 completed Not Available Not Available Not Available azithromy masha 500 mg tablet Take 2 tablets every day by oral route for 1 day. 12/25 completed Not Available Not Available Not Available Sprintec (28) 0.25 mg-35 mcg tablet Take 1 tablet by mouth once daily 08/28 completed Not Available Not Available Not Available 8 Hour Pain Reliever 650 mg tablet,ex tended release Take 1 tablet every 8 hours by oral route for 14 days. 04/08 completed Not Available Not Available Not Available OneTouch Ultra2 Meter kit 08/26 completed Not Available Not Available Not Available metformin ER 500 mg 24 hr tablet,ex tended release (gastric retention ) active Not Available Not Available Not Available Januvia 100 mg tablet 08/28 completed Not Available Not Available Not Available calcium 600 mg (as carbonate )-vitamin D3 10 mcg (400 unit) tablet 05/18 completed Not Available Not Available Not Available diclofena c 1 % topical gel APPLY 2 GRAMS TOPICALL Y TO AFFECTED AREA 4 TIMES DAILY 05/07 completed Not Available Not Available Not Available OneToisaiah Kim 33 gauge 12/16 completed Not Available Not Available Not Available Tradjenta 5 mg tablet 08/28 completed Not Available Not Available Not Available Easy Touch Alcohol Prep Pads 01/07 completed Not Available Not Available Not Available Easy Touch Twist Lancets 28 gauge 05/18 completed Not Available Not Available Not Available Victoza 3-Ty 0.6 mg/0.1 mL (18 mg/3 mL) subcutane ous pen injector Inject 0.6 mg every day by subcutan eous route. 09/17 completed Not Available Not Available Not Available True Metrix Glucose Test Strip active Not Available Not Available Not Available Trulicity 0.75 mg/0.5 mL subcutane ous pen injector INJECT 1 SYRINGE SUBCUTAN EOUSLY ONCE A WEEK active Not Available Not Available No t Available TRUEplus Pen Needle 32 gauge x /32 USE 1 ONCE DAILY DIRECTED TO INJECT VICTOZA WITH LARGEST MEAL active Not Available Not Available No t Available OneTouch Ultra Blue Test Strip 12/16 completed Not Available Not Available Not Available OneTouch Ultra2 Meter 12/16 completed Not Available Not Available Not Available Vitals Date Recorded Body height Provider Name an d Address Organization Details Last Updated DateTime 08/29/2023 172.72 cm Adriane Cui MA [facility] 08/28 11:48:12 Date Recorded Body mass index (BMI) Body weight Provider Name and Address Organization Details Last Updated DateTime 08/29/2023 41 kg/m2 572529.8 g Adriane Cui MA [facility] 08/29/2023 11:48:20 Date Recorded Oxygen saturation Oxygen saturation in Arterial blood by Pulse oximetry Provider Name and Address Organization Details Last Updated DateTime 08/29/2023 98 % 98 % Adriane Cui MA [facility] 08/29/2023 11:48:34 Date Recorded Heart rate Provider Name an d Address Organization Details Last Updated DateTime 08/29/2023 74 /min Adriane Cui MA [facility] 08/28 11:48:38 Date Recorded Respiratory rate Provider Name a nd Address Organization Details Last Updated DateTime 08/29/2023 18 /min Adriane Cui MA [facility] 08/29/2023 11:48:40 Date Recorded Body temperature Provider Name a nd Address Organization Details Last Updated DateTime 08/29/2023 97.4 [degF] Adriane Cui MA [facility] 08/29/2023 11:48:47 Date Recorded Body height Provider Name an d Address Organization Details Last Updated DateTime 09/11/2023 172.72 cm Adriane Cui MA [facility] 09/10 15:43:49 Date Recorded Body height Provider Name an d Address Organization Details Last Updated DateTime 09/18/2023 172.72 cm Adriane Cui MA [facility] 09/17 10:40:46 Date Recorded Body height Provider Name an d Address Organization Details Last Updated DateTime 02/11/2024 172.72 cm Adriane Cui MA [facility] 02/10 16:39:40 Date Recorded Body mass index (BMI) Body weight Provider Name and Address Organization Details Last Updated DateTime 02/11/2024 38.5 kg/m2 837823.62 g Adriane Cui MA [facility] 02/11/2024 16:39:46 Date Recorded Oxygen saturation Oxygen saturation in Arterial blood by Pulse oximetry Provider Name and Address Organization Details Last Updated DateTime 02/11/2024 98 % 98 % Adriane Cui MA [facility] 02/11/2024 16:40:26 Date Recorded Heart rate Provider Name an d Address Organization Details Last Updated DateTime 02/11/2024 76 /min Adriane Cui MA [facility] 02/10 16:40:29 Date Recorded Respiratory rate Provider Name a nd Address Organization Details Last Updated DateTime 02/11/2024 18 /min Adriane Cui MA [facility] 02/11/2024 16:40:31 Date Recorded Body temperature Provider Name a nd Address Organization Details Last Updated DateTime 02/11/2024 97.5 [degF] Adriane Cui BRITNI [facility] 02/11/2024 16:40:36 Date Recorded Body height Provider Name an d Address Organization Details Last Updated DateTime 05/07/2024 172.72 cm Jluissa Daly MA [facility] 05/07 11:00:57 Date Recorded Body mass index (BMI) Body weight Provider Name and Address Organization Details Last Updated DateTime 05/07/2024 37.9 kg/m2 671038.25 g Julissa Daly MA [facility] 05/07/2024 11:01:12 Date Recorded Heart rate Provider Name an d Address Organization Details Last Updated DateTime 05/07/2024 69 /min Julissa Daly MA [facility] 05/07 11:06:34 Date Recorded Systolic blood pressure Diastolic blood pressure Provider Name and Address Organization Details Last Updated DateTime 08/29/2023 122 mm[Hg] 82 mm[Hg] Adriane Cui MA [facility] 08/29/2023 11:51:13 Date Recorded Systolic blood pressure Diastolic blood pressure Provider Name and Address Organization Details Last Updated DateTime 02/11/2024 118 mm[Hg] 78 mm[Hg] Adriane Cui MA [facility] 02/11/2024 16:45:20 Date Recorded Systolic blood pressure Diastolic blood pressure Provider Name and Address Organization Details Last Updated DateTime 05/07/2024 106 mm[Hg] 70 mm[Hg] Julissa Daly MA [facility] 05/07/2024 11:06:24 Social History Question Answer Notes LastModified by Organizat ion Details LastModified Time Tobacco Smoking Status Never Smoker Julissa Daly MA [facility] 11/03/2014 17:30:01 Do You Have An Advance Directive? No Information not available 12/11/2021 What Is Your Level Of Alcohol Consumption? Occasional Information not available 09/08/2018 Are You Blind Or Do You Have Difficulty Seeing? Yes Wear Glasses Information not available 05/07/2024 Is Blood Transfusion Acceptable In An Emergency? Yes Information not available 11/03/2014 What Is Your Level Of Caffeine Consumption? Moderate Information not available 11/03/2014 Can Child Swim? No Informati on not available 09/08/2018 How Much Tobacco Do You Chew? None Information not available 11/03/2014 In The 14 Days Before Symptom Onset, Have You Had Close Contact With A Laboratory-confir med COVID-19 While That Case Was Ill? No Information not available 12/11/2021 In The 14 Days Before Symptom Onset, Have You Had Close Contact With A Person Who Is Under Investigation For COVID-19 While That Person Was Ill? No Information not available 12/11/2021 Have You Been To An Area Known To Be High Risk For COVID-19? No Information not available 12/11/2021 Are You Currently Employed? Yes Information not available 11/03/2014 Are You Deaf Or Do You Have Serious Difficulty Hearing? No Information not available 05/07/2024 What Type Of Diet Are You Following? REGULAR Information not available 11/03/2014 Which Illicit Or Recreational Drugs Have You Used? No Information not available 11/03/2014 Do You Or Have You Ever Used E-cigarettes Or Vape? Never Used Electronic Cigarettes Information not available 05/07/2024 Education 12 Information no t available 11/03/2014 What Is The Highest Grade Or Level Of School You Have Completed Or The Highest Degree You Have Received? [id number] Information not available 12/23/2020 What Is Your Occupation? [employer] Information not available 05/07/2024 Swimming/diving No Informati on not available 09/08/2018 Have There Been Any Changes To Your Family Or Social Situation? No Information no t available 12/23/2020 Are There Any Guns Present In Your Home? No Information not available 09/08/2018 Hard Of Hearing Or Deaf In One Or Both Ears? No Information not available 09/08/2018 Legally Blind In One Or Both Eyes? No Information no t available 09/08/2018 Live Alone Or With Others? With Others Information not available 11/03/2014 Do You Have A Medical Power Of Dividend Clerk? No Information not available 12/11/2021 What Was The Date Of Your Most Recent Tobacco Screening? 05/07/2024 Information not available 05/07/2024 How Many Children Do You Have? 0 Information not available 11/03/2014 Performs Monthly Self-breast Exam? No Information no t available 11/03/2014 Do You Use Protection During Sex? No Information not available 09/08/2018 What Is Your Relationship Status? Single Information not available 11/03/2014 Do You Use Your Seat Belt Or Car Seat Routinely? Yes Information not available 12/23/2020 Seat Belts Used Routinely Yes Information not available 11/03/2014 Are You Sexually Active? Yes Information not available 09/08/2018 Smoke Alarm In Home No Information not available 09/08/2018 Do You Have Smoke And Carbon Monoxide Detectors In Your Home? Yes Information not available 12/23/2020 Are You Passively Exposed To Smoke? Yes Information no t available 05/07/2024 Do You Or Have You Ever Used Smokeless Tobacco? Never Used Smokeless Tobacco Information not available 05/07/2024 How Much Tobacco Do You Smoke? No Information not available 11/03/2014 General Stress Level Medium Information not available 11/03/2014 Do You Use Any Illicit Or Recreational Drugs? No Information not available 12/23/2020 Do You Use Sunscreen Routinely? No Information not available 11/03/2014 Has Tobacco Cessation Counseling Been Provided? Yes Information not available 05/07/2024 On What Date Was Tobacco Cessation Counseling Provided? 05/07/2024 Information not available 05/07/2024 Do You Or Have You Ever Used Any Other Forms Of Tobacco Or Nicotine? No Information not available 10/14/2020 Sex: Female Functional Status Question Answer Note LastModified by Organizat ion Details LastModified Time Are you able to care for yourself? Yes Information not available 09/08/2018 What is your exercise level? Occasional Information not available 11/03/2014 Mental Status None recorded. Family History Relationship Description Onset Age of this Age Resolved Age Notes LastModified by Organization Details LastModified Time Mother Hypertensive disorder [email or web address] Not available 2014 15:08:39 Father Hypertensive disorder [email or web address] Not available 2014 15:08:39 Medical History Condition Response Heart Problems N Other Y Breast Cancer N Thyroid Problems N Kidney or Bladder Problems N GI Problems N Lung Disease N Depression N Acne N Breast Problem N Eating Disorder N Anemia N Anesthesia Complications N Headaches/Migraines N Anxiety Disorder N Diabetes Y Ovarian Cancer N Blood Transfusions N Arthritis N Polyps N Infertility N Acid Reflux (GERD) Y Cancer N Stroke N Abuse/Domestic Violence N Asthma N Endometriosis N High Cholesterol N Hepatitis N Heart Disease N Fibromyalgia N Pre-Eclampsia N Hypertension N Osteoporosis N Kidney Disease N Gynecological History Statement/Question Response Abnormal Pap Yes Flow Moderate Date of LMP 04/24/2024 On BCP's at Conception? N STIs/STDs Yes HPV Vaccine N Duration of Flow (days) 5 Age at Menarche 10 Current Control Method BCPs Frequency of Cycle (Q days) 25 Sexually Active? N Menses Monthly N Date of Last Pap Smear 05/07/2024 Sexual Problems? N LMP Approximate Desired Control Method BCPs Obstetrics History GPAL:G 0 P 0 0 0 0 Type Value Multiple Births 0 Full Term 0 Induced 0 Spontaneous 0 Premature 0 Living 0 Ectopics 0 Total 0 Immunizations Vaccine Type Date Status Note Provider Nam e and Address Organization Details Recorded Time Influenza, split virus, quadrivalent, preservative 6 completed Not Available [facility] 06/13/2019 02:33:00 Tdap 8 completed Not Available [facility] 06/13/2019 02:35:26 Influenza, split virus, quadrivalent, PF 9 completed Not Available [facility] 06/13/2019 02:38:11 Past Encounters Encounter ID Performer Location Encounter Start Date Encounter Closed Date Diagnosis/Indication Diagnosis SNOMED-CT Code Diagnosis ICD10 Code Diagnosis Note [id number] Latonya Wick RN [facility] ([employer]) [address] [place] [address] 11/03/2014 16:55:19 11/04/2014 11:24:53 Uses oral contraception [id number] 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 I will send rx for famotidine 40mg, which has helped in the past and order cbc, cmp, h. pylori. patient to return in 4weeks to review results. [id number] Ry Barba [address] [address] 03/09/2016 10:15:50 03/20/2016 15:00:36 Indigestion 410395572 R10.13 patient presents to office to establish care and discuss 1 month history of symptoms. I will send rx for famotidine 40mg, which has helped in the past and order cbc, cmp, h. pylori. patient to return in 4weeks to review results. [id number] CHIVO Wolf [address] [address] 04/09/2016 12:19:42 04/13/2016 14:30:57 Indigestion 436745960 R10.13 -famotidin e 40mg as needed - Symptoms fully resolved - Serum H. Pylori negative - Continue to avoid spicy foods - Discussed increasing fiber and fluid intake. If constipati on persists, discussed trial of OTC metamucil 1 Tbsp in a full glass of water - Return if symptoms recur Fatigue 30532978 R53.83 - Awaiting [place] [facility] neurology results - F/u in 4 weeks - Will order A1C or GTT if needed on next appointmen t [id number] Karel Olea ([employer]) [address] [place] [address] 05/18/2016 09:16:00 05/29/2016 15:46:58 Gynecologic examination 27039764 Z01.419 Amenorrhea 34981307 N91. 2 Active or passive immunization 961200587 Z23 [id number] CHIVO Wolf [address] [address] 05/29/2016 16:03:04 06/14/2016 16:20:00 Itching of skin 495981512 L29.9 discussed 1 week history of hypopigmen tation of skin. will trial with hydroxyzin e 25mg q hs. patient to return in 2weeks for re-evaluat ion. patient states that mother has similar symptoms, and will notify me what her mothers diagnosis and treatment was. [id number] CHIVO Wolf [address] [place] [address] 08/02/2016 10:14:14 08/02/2016 13:26:43 Acute sinusitis 54541597 J01.90 Ms. Nava is a 26 year old female with acute sinusitis. We will prescribe her cheratussi n, flonse, and loratadine as needed for symptom relief while she completes her antibiotic course. We will see her again as needed. [id number] CHIVO Wolf [address] [place] [address] 01/07/2017 10:30:58 01/09/2017 10:33:03 Ankle pain 672563948 M25.579 Patient reports worsening ankle pain bilaterall y, left worse than right. Recently had xrays on both ankles without noted abnormalit ies. Patient previously underwent physical therapy with relief to symptoms. Plan for PT referral and pain control with tramadol.P kim: PT for 4 weeks and follow up in office to reassess. [id number] [facility] [address] [place] [address] 03/28/2017 11:13:35 03/28/2017 16:19:21 Rheumatoid arthritis 87146268 M06.9 Gout 87351236 M10.072 Swollen ankle region 267 899232 R22.42 [id number] [facility] ts [address] [place] [address] 04/11/2017 09:34:24 04/11/2017 11:10:33 Rheumatoid arthritis 76807060 M06.9 encouraged to see rheumatolo gist as referred last session [id number] MD Harmony Mondragon [address] [place] [address] 09/03/2017 15:55:05 09/06/2017 12:29:24 Adult health examination [id number] Z00.00 Pruritic disorder 450465 002 L29.9 Patient advised to change detergents back to what she was previously using.Emely ent advised to use zyrtec at night time to facilitate sleeping if she is unable to sleep.Emely ent advised to purchase hydrating soap. [id number] Magaly Chatman MA [facility] [address] [place] [address] 09/04/2017 09:54:42 09/06/2017 12:40:19 Adult health examination [id number] Z00.00 [id number] Karel Desir [facility] ([employer]) [address] [place] [address] 09/04/2017 19:03:04 09/05/2017 14:36:14 Amenorrhea 51930321 N91.2 Obesity 057108259 E66.9 [id number] CHIVO Wolf [facility] [place] [address] 09/24/2017 14:45:43 09/26/2017 12:05:10 Obesity 122307648 E66.9 spent a long time discussing diet, excercise, increasein g fruits and vegetables , reducing junk food and soda. referral to scientific manager. pateitn Pruritic disorder 531922 002 L29.9 normal cbc, cmp, I will order allergy panel, hydroxyzin e 25mg prn Myasthenia gravis 615350 04 G70.00 seeing specialist s at [facility], [facility] Dr. Pantoja ophthalmol ogist, I will wait for records. [id number] CHIVO Wolf [facility] [place] [address] 10/30/2017 14:51:28 11/13/2017 13:16:26 Pruritic disorder 367651987 L29.9 discussed symptoms most likely due to dry skin. normal cbc, cmp, allergy panel. recommendi ng moisturizi ng, short baths, pat dry, patient to continue hydroxyzin e 25mg prn, triamcinol one 0.5% +vaseline, if no relief patient to follow up with dermatolog y, provided contact informatio n. patient to return to see me in 6weeks Active or passive immunization 087735031 Z23 tdap provided Obesity 118101376 E66.9 spent a long time discussing diet, excercise, increasein g fruits and vegetables , reducing junk food and soda. referral to scientific manager. [id number] Karel Desir [facility] ([employer]) [address] [place] [address] 12/18/2017 17:55:16 12/24/2017 15:51:23 Gynecologic examination 79173803 Z01.419 Amenorrhea 77595445 N91. 2 [id number] CHIVO Wolf [address] [place] [address] 01/20/2018 14:48:40 01/21/2018 11:22:44 Urinary tract infectious disease 89375482 N39.0 Urinalysis reveals small amount of leukocytes ; patient is afebrile and exam reveals no abdominal or CVA tenderness ; Patient already prescribed levaquin 500mg BID x 5 days from [facility], continue and complete this. Educated regarding proper restroom habits. Obesity 248161973 E66.9 Discussed diet, excercise, increasein g fruits and vegetables , reducing junk food and soda. Continue seeing dietitian. Vaginitis 32224185 N76.0 Patient reports increased vaginal itching. Miconazole 7 prescribed today. Nuab obtained and will send for STD panel as well. 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 Bolaños and Dr. Pantoja ophthalmol panchito, but no longer covered by insurance. 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 Bolaños , referral to new neurologis t since patient can no longer see neurology at [facility] was seeing Dr. Choudhury endocrinol ogist, due to elevated prolactin , will wait for records. Venereal d isease screening 533383509 Z11.3 routine testing ordered as requested by patient [id number] CHIVO Wolf [address] [place] [address] 09/08/2018 09:54:19 09/09/2018 13:28:12 Venereal disease screening 126737046 Z11.3 routine testing ordered as requested by patient Migraine 79074140 G43.90 9 Patient previously saw neurology at [facility].Will refer to neurology again at this time.staff will contact patient with appointmen tpatient requesting ketorlac refill, discussed that this is not appropriat e senior living medication , i will trial with belem gama understand s to go to ED if in severe distress Myasthenia gravis 491801 04 G70.00 patient was seeing specialist s at [facility], Dr. Bolaños and Dr. Pantoja ophthalmemerald flanagan, but no longer covered by insurance. I will refer to new neurologis t and opthalmolo gy Intracranial tumor 70514 5002 D49.6 currently taking bromocript ine given by neurologis t at Dr. Mami Marroquin , referral to new neurologis t since patient can no longer see neurology at [facility] was seeing Dr. Choudhury endocrinol ogalex, due to elevated prolactin , will wait for records. Patient saw Endocrinol ogist Dr. Letha Bloom in early August. Will continue to follow up with her. [id number] MD Marlen Mondragon [address] [place] [address] 09/17/2018 16:00:12 09/18/2018 12:45:17 Chlamydial infection 029337549 A74.9 Treated with azithromyc in 1 g on 09/15/18.Di scussed necessity of partner treatment. Patient states she does not believe partner has any known drug allergies. A prescripti on was written for patients partner for 1 gm of azithromyc in per EPT protocol by the [facility] (see chart for copy of Rx).Counse led patient to obtain from sexual contact for 7 days after treatment. 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 Bolaños and Dr. Pantoja ophthalmol ogist, but no longer covered by insurance. pending appointmen t with neurologis t and endocrinol ogist November 2018 Intracranial tumor 77593 5002 D49.6 currently taking bromocript ine given by neurologis t at [place], Dr. Bolaños , referral to new neurologis t [facility] Dr. [facility]oud[facility]ury, endocrinol ogist, due to elevated prolactin , will wait for records. Patient saw Endocrinol ogist Dr. Letha Bloom, pending appointmen t in November 2018 Will continue to follow up with her. [id number] CHIVO Wolf [address] [place] [address] 12/25/2018 15:19:40 12/26/2018 15:00:01 Recurrent candidiasis of vagina 662459054 B37.3 neg urine pregrecent ly [facility] [id number] : 5.9repeat nuswab todayurine culture sent outdiet and exercise Myasthenia gravis 635824 04 G70.00 patient was seeing specialist s at [facility], Dr. Bolaños and Dr. Pantoja ophthalmol ogist, but no longer covered by insurance. pending appointmen t with neurologis t and endocrinol ogistcurre ntly on new medication will wait for records Tinea pedis 5741475 B35. 3 terbinafin e sent to pharmacyke ep affected area clean and dry Hyperglycemia 34976221 R 73.9 hgba1c on 12/26/18: 5.9glucome ter provided to patientavo zane bowser [id number] Karel [facility] ([employer]) [address] [place] [address] 01/09/2019 13:51:18 01/12/2019 16:23:05 Bacterial vaginosis 700189080 N76.0 --per exam Contraception care 69291 5005 Z30.41 --hypogona dism and secondary amenorrhea due to hyperprola ctinemia/p ituitary adenoma--s ees endocrine at [place], on oral contracept melissa-no complaints , needs refill High risk sexual behavior 820900172 Z72.51 --requests complete STD check due to recent STDs Gynecologi c examination 02087718 Z01.419 --annual exam, Pap performed [id number] K[facility] ([employer]) [address] [place] [address] 02/18/2019 13:16:12 02/19/2019 09:29:50 Bacterial vaginosis 077110919 N76.0 --per exam, recently treated for BV/trich but didn't complete full 7 day course-imp ortance stressed, no trich noted on wet mount Administra tion of influenza vaccine 56078558 Z23 [id number] K[facility] ([employer]) [address] [place] [address] 03/12/2019 13:49:56 03/18/2019 09:18:38 Cervicovaginal cytology: Low grade squamous intraepithelial lesion 260936090 R87.468 [id number] MARY NAVA, DIRECTOR OF ACCOUNTING-C Marlen barcenas [address] [place] [address] 06/26/2019 14:22:16 06/26/2019 17:14:55 Closed fracture of ankle 65787492 S82.90XA -Pt with post hopital management for Oblique distal fibular fracture with mild lateral displaceme nt-Ankle was splinted and wrapped-Pt to continue with Ed instructio ns-managem ent as outlined Myasthenia gravis 341718 04 G70.00 -Pt followed by neurology at [facility] as she reports, yet she no longer carried insurance. She will resume treatment- No acute concerns today-Will continue to follow up with appts as tamera romero and advised Rheumatoid arthritis 698 32133 M06.9 -Pt followed by rheumatcynthia terrazas at [facility] as she reports, yet she no longer carried insurance. 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 She will resume treatment -No acute concerns today -Will continue to follow up with appts as tamera romero and advised Pituitary adenoma 745609 000 D35.2 -Pt followed by endocrinemerald crook at [facility] as she reports, yet she no longer carried insurance. She will resume treatment -No acute concerns today -Will continue to follow up with appts as tamera romero and advised Venereal d isease screening 463447925 Z11.3 -Pt requests STI testing; has participat ed in high risk sexual behavior r/t intercours e without the use of condoms with multiple female partners -Screening as outlined Adult [facility] th examination 201016756 Z00.00 -PE complete-A dvised in routine care for current age-Pt stable Body mass index 30+ - obesity 687402512 Z68.36 -Pt advised of BMI: 36.7 -Pt encouraged to eat a plant-base d diet, minimizing processed foods and portion control -Pt advised on the recommenda tions for routine exercise Depression screening 171 467190 Z13.31 -Routine Recommende d screening -PHQ9 completed and filed; (-) [id number] Ozzie Carpio MD [facility] [address] [place] [address] 06/29/2019 15:50:52 07/01/2019 15:21:37 Pain of left ankle joint 1690705768 9557351 M25.572 Bimalleola r fracture of ankle 081570011 S82.842A Eqivalent [id number] SANTINO VENTURA-C Marlen barcenas [address] [place] [address] 07/08/2019 15:04:40 07/09/2019 13:59:59 Vitamin D deficiency 03273085 E55.9 -Pt advised that Vit D is deficient; regimen initiated, sent to pharmacy-R echeck after regimen complete Prediabetes 443558390 R7 3.03 -Previous A1C: 6.0-Pt advised to maintain lifestyle modificati ons-Routin e monitoring to follow Bacterial vaginosis 4197 92463 N76.0 -Pt with c/o correlatin g with BV-Testing for disorder (+) -Managemen t as outlined Neoplasm o f pituitary gland 383361665 D49.7 -Pt reports she had been seen [facility]; attempting to obtain records for chart review as pt is requesting Rf of medication til seen Myasthenia gravis 454309 04 G70.00 -Pt followed by neurology at [facility] historical ly as she reports, yet she no longer carried insurance. She will resume treatment- No acute concerns today-Refe rral sent prior visit-Pt reports she still have medication s for management Ankle pain 928543480 M25 .297 [id number] Ozzie Carpio MD [facility] [address] [place] [address] 07/30/2019 10:00:49 08/06/2019 08:46:09 Closed bimalleolar fracture of left ankle 3419947627 2250973 S82.842D NWBROMRTC 3 weeks / XRNorco 5 [id number] Ozzie Carpio MD [facility] [address] [place] [address] 08/17/2019 12:30:43 08/19/2019 12:52:04 Closed bimalleolar fracture of left ankle 6016590497 3685976 S82.842D Begin WBAT/ BBBWean Crutches ROMRTC 3 weeks / XRNorco 5Light Duty in BBB [id number] MD Marlen Bosch [address] [place] [address] 08/27/2019 10:42:54 08/31/2019 12:54:01 Myasthenia gravis 77797177 G70.00 -Pt followed by neurology at [facility] historical ly as she reports, yet she no longer carried insurance. She will resume treatment- No acute concerns today-Refe rral sent prior visit; appt on 09/07-Pt reports she is out of medication for management -Pt is advised to f/u with appt for management as further RFs will not be provided as she requires evaluation by her specialty provider Neoplasm o f pituitary gland 101983823 D49.7 -Pt reports she had been seen by endocrinol armaan Carroll) historical ly in the management of Prolactino ma-RACHEL on file; Have obtained records for chart review as pt is requesting Rf of medication til seen by endo; appt has been changed by patient.-P t is advised to f/u with appt for management as further RFs will not be provided as she requires evaluation by her specialty provider; appt is scheduled for [id number] ALIS VENTURA [address] [place] [address] 09/03/2019 13:09:05 09/04/2019 11:47:42 Myasthenia gravis 46487305 G70.00 -Pt followed by neurology at [facility] historical ly as she reports, yet she no longer carried insurance. She will resume treatment- No acute concerns today-Refe rral sent prior visit; appt on 09/07-Pt reports she is out of medication for management -Pt is advised to f/u with appt for management as further RFs will not be provided as she requires evaluation by her specialty provider*U pdate during routine visit via phone:pt reports she does have a scheduled visit for next month; medication s have been supplied by this staff writer to appt date Rheumatoid arthritis 698 36007 M06.9 -Pt followed by harleen terrazas at [facility] historical ly as she reports, yet she no longer carried insurance. She will resume treatment -No acute concerns today -Will continue to follow up with appts as establishe d and advised-Ap pt scheduled as noted: Lela, 09/08/19 at 0820 Body mass index 30+ - obesity 922944747 Z68.36 -Pt advised of BMI: 36.7 -Pt encouraged to eat a plant-base d diet, minimizing processed foods and portion control -Pt advised on the recommenda tions for routine exercise [id number] Ozzie Carpio MD [facility] [address] [place] [address] 09/09/2019 10:04:40 09/10/2019 12:50:59 Closed bimalleolar fracture of left ankle 6213146735 3954565 S82.842D Begin WBAT supportive shoesROM/ PT by phoneRTC 6 weeks / XR Reg Duty 09/14/19 Chondromal acia of left patella 1769774230 25065 M22.42 Abnormal gait 71319231 R 26.9 [id number] Ozzie Carpio MD [facility] [address] [place] [address] 10/15/2019 11:29:33 10/22/2019 11:14:12 Closed bimalleolar fracture of left ankle 0268616576 1126641 S82.842D Begin WBAT supportive shoesROM/ PT by phoneRTC 4 mo XR Reg Duty 09/14/19 ok to travelHand ica 6 mos Swelling of lower leg 44 2723377 R22.42 No evidence of DVT [id number] ALIS VENTURA [address] [place] [address] 12/17/2019 09:47:16 12/18/2019 12:46:57 Laboratory test result abnormal 694497049 R89.9 -Pt reports she has seen Endo who was consulted in the management of her pituitary disorder-P t reports Endo provided has prescribed medication s for DM and wt gain-Pt seeks advisement regarding meds; informed to call Endo so to advise to forward records; staff writer has attempted to call twice with no answer even during stated business hours-Pt is advised will f/u with next visit and upon receipt of consult note [id number] Ozzei [facility] [address] [place] [address] 02/11/2020 11:00:22 02/11/2020 17:01:42 Closed bimalleolar fracture of left ankle 3121784929 5797695 S82.842D Begin WBAT supportive shoesRTC 4 mo XR Reg Duty 09/14/19 ok to travelHand icap 6 mos Swelling of lower leg 44 8726414 R22.42 No evidence of DVT [id number] SANTINO VENTURA-C Marlen barcenas [address] [place] [address] 04/08/2020 14:00:36 04/11/2020 10:41:07 Neoplasm of pituitary gland 374197393 D49.7 -Pt reports she had been seen by endocrinol armaan Carroll) maci ly in the management of Prolactino ma-RACHEL on file; Have obtained records for chart review as pt is requesting Rf of medication til seen by endo; appt has been changed by patient.-P t is advised to f/u with appt for management as further RFs will not be provided as she requires evaluation by her specialty provider; appt is scheduled for Gastroesop hageal reflux disease without esophagitis 855767508 K21.9 -Pt with historical dx of GERD; pt preferred to not manage with medication -Pt advised if sx are mild she may manage with otc ranitidine -Will continue to eval at f/u visits Allergic rhinitis 658058 04 J30.9 -Pt presents with signs/symp toms chronic sinusitis/ rhinitis-P t to manage with nasal corticoste roids-Pt to employ conservati ve management as well [id number] Evelia Dwyer PA-C [facility] (Adult Med) [address] [place] [address] 06/28/2020 09:16:15 06/29/2020 15:52:01 Neoplasm of pituitary gland 816556368 D49.[address] Carroll Fracture of ankle 809154 01 S82.92XA pending appointmen t with Dr. Carpio on 07/11/2020 ontinue PT [id number] Ozzie Carpio MD [facility] [address] [place] [address] 07/25/2020 15:20:24 2020 11:30:03 Closed bimalleolar fracture of left ankle 7427568936 0483833 S82.842D Cont WBAT supportive shoesRTC 12 mo XR/ prn Reg Duty 09/14/19 ok to travel, no restrictio nsHandicap by pcp Swelling of lower leg 44 2663020 R22.42 No evidence of DVT Stiffness of left ankle 3379327261 01216 M25.672 post fxRec restarting HEP, decline PTrec weight loss15 min discussion on prognosis [id number] BUD COUCH DPM [facility] [address] [place] [address] 09/16/2020 11:17:20 09/20/2020 16:55:31 Onychomycosis 873384368 B35.1 Tinea pedis 7904585 B35. 3 Pain in left foot 121031 1678 67926 M79.672 Pain in right foot 11871 09371 82056 M79.169 [id number] Karel Desir [facility] ([employer]ER) [address] [place] [address] 10/14/2020 13:45:32 10/18/2020 12:51:07 Venereal disease screening 055015496 Z11.3 Z72.51 --requests STD check Screening for malignant neoplasm of cervix 909741099 Z12.4 --last Pap 01-09-19 LGSIL with negative colpo 03-12-19 so Pap repeated today Gynecologi c examination 39539050 Z01.419 --WWE --has primary provider for routine health issues/scr eenings --also sees [facility] now instead of [facility] due to insurance change for myasthenia gravis and pituitary adenoma (pt also says she sees someone in [place] but she couldn't remember name) Contraception care 88297 5005 Z30.41 --hypogona dism and secondary amenorrhea due to hyperprola ctinemia/p ituitary adenoma--w as seeing endocrine at [facility] but now [facility] due to insurance, previously on oral contracept melissa with regular menses-no complaints , needs refill because now amenorrhea without Obesity 192502989 E66.9 --BMI 38.9 Body mass index 30+ - obesity 689105141 Z68.38 [id number] BUD COUCH DPM [facility] [address] [place] [address] 11/01/2020 11:23:41 11/01/2020 14:16:24 Onychomycosis 055224946 B35.1 Tinea pedis 6680126 B35. 3 Pain in left foot 469983 1821 04364 M79.672 Pain in right foot 00968 25672 00176 M79.344 [id number] BUD COUCH DPM [facility] [address] [place] [address] 12/08/2020 10:54:29 12/15/2020 08:28:00 Onychomycosis 831453650 B35.1 Tinea pedis 2770326 B35. 3 Pain in left foot 327688 7753 70577 M79.672 Pain in right foot 00927 77882 13874 M79.724 [id number] Karel Desir [facility] ([employer]) [address] [place] [address] 12/23/2020 10:09:44 12/26/2020 17:37:06 Atypical squamous cells of undetermined significance on cervical Papanicolaou smear 046406792 R87.610 Obesity 526449026 E66.9 --BMI 39.8 [id number] Rober Patrick [email or web address] (Adult Med) [address] [place] [address] 01/17/2021 09:45:34 01/17/2021 18:16:00 Neoplasm of pituitary gland 311995021 D49.[address] Carrollbut was dropped due to insurancew ill refer to new endocrinol ogalex Myasthenia gravis 066079 04 G70.00 patient was seeing specialist s at [facility], Dr. Bolaños and Dr. Pantoja ophthalmemerald flanagan, but no longer covered by insurance. referral to new neurologis t and endocrinol mamta adams signs discussed on when to go to ERfollow up with me after seeing specialist s Gastroesop hageal reflux disease without esophagitis 652901406 K21.9 refilling omeprazole referral to GI [id number] Evelia Dwyer PA-C [facility] (Adult Med) [address] [place] [address] 03/28/2021 09:37:45 03/29/2021 18:19:42 Neoplasm of pituitary gland 842223323 D49.[address] Cuellar up in 3months Myasthenia gravis 131724 04 G70.00 patient was seeing specialist s at [facility], Dr. Bolaños and Dr. Pantoja ophthalmemerald flanagan, but no longer covered by insurance. referral to new neurologis farhad and endocrinol mamta adams signs discussed on when to go to ERfollow up with me after seeing specialist s Foot pain 88212921 M79.6 73 bilateral feet painmanage d by orthono relief with ibuprofent rial with meloxicam 7.5mg once daily [id number] BUD COUCH DPM [facility] [address] [place] [address] 04/11/2021 14:59:00 04/25/2021 08:00:17 Onychomycosis 869092309 B35.1 Tinea pedis 1453906 B35. 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.0 [id number] Evelia Dwyer PA-C [facility] (Adult Med) [address] [place] [address] 05/16/2021 09:14:29 05/17/2021 11:16:20 Pain of left ankle joint 0501283818 0989952 M25.572 history of fracturere ferral to PT and ortho [id number] Ozzie Carpio MD [facility] [address] [place] [address] 06/15/2021 10:37:00 06/16/2021 08:29:48 Fracture of ankle 63229793 S82.92XA Closed bim alleolar fracture of left ankle 3366601874 5603106 S82.842D Cont WBAT supportive shoesRTC 12 mo XR/ prn Reg Duty 09/14/19 ok to travel, no restrictio nsHandicap by pcp Swelling of lower leg 44 2574771 R22.42 No evidence of DVT Stiffness of left ankle 0811399246 26813 M25.672 post fxRec restarting HEP, decline PTrec weight loss15 min discussion on prognosis Localized, primary osteoarthritis of the ankle and/or foot 431463864 M19.079 M19.072 post fxNeeds to loose weight [id number] Evelia Dwyer PA-C [facility] (Peds) [address] [place] [address] 06/16/2021 12:54:29 06/20/2021 09:40:45 Pain of left ankle joint 7790237532 1731141 M25.572 history of fracturema naged by ortho who recommende d weight lossreferr al placed for scientific manager Hyperglycemia 61103215 R 73.9 hgba1c on 12/26/18: 5.9glucome ter provided to patientavo zane jaimes to igor lin up with dr. bloom as directed Myasthenia gravis 680342 04 G70.00 patient was seeing specialist s at [facility], Dr. Bolaños and Dr. Pantoja ophthalmol ogist, but no longer covered by insurance. referral to new neurologis t and endocrinol ogist last visitjuany bryan signs discussed on when to go to [facility] up with me after seeing specialist spatient is already seeing dr. bloom for myesthenia gravis, recommende d to follow up with dr. bloom as directed [id number] BUD COUCH DPM [facility] [address] [place] [address] 09/08/2021 11:55:23 09/11/2021 15:01:39 Onychomycosis 276054006 B35.1 Tinea pedis 4286537 B35. 3 Pain in left foot 526646 4404 08678 M79.672 Pain in right foot 96212 36837 15886 M79.671 Idiopathic peripheral neuropathy 60963316 G60.9 Xerosis du e to atopic dermatitis 465736619 L85.3 [id number] BUD COUCH DPM [facility] [address] [place] [address] 12/11/2021 12:00:32 12/11/2021 14:45:47 Onychomycosis 937350459 B35.1 Tinea pedis 6265966 B35. 3 Pain in left foot 317287 5631 38405 M79.672 Pain in right foot 18758 91613 91030 M79.671 Idiopathic peripheral neuropathy 62190865 G60.9 Xerosis du e to atopic dermatitis 352117035 L85.3 Diabetic p eripheral neuropathy 685244813 E11.42 Acquired h ammer toe of left foot 8136361872 339743 M20.42 Acquired h ammer toe of right foot 4441396631 995737 M20.41 Arrey - lesion 571873761 L84 [id number] CHIVO [facility] (Adult Med) [address] [facility] [place] [address] 01/02/2022 10:07:00 01/03/2022 07:58:18 Pain of left ankle joint 1383483130 7617494 M25.572 history of fracturema naged by ortho who recommende d weight lossreferr al placed for scientific manager Hyperglycemia 33191033 R 73.9 hgba1c on 12/26/18: 5.9glucome ter provided to patientavo id sodareferr al to cirilof riley up with dr. bloom as directed Myasthenia gravis 359211 G70.00 patient was seeing specialist s at [facility], Dr. Bolaños and Dr. Pantoja ophthalmol ogist, but no longer covered by insurance. referral to new neurologis t and endocrinol ogist last visitwarni bryan signs discussed on when to go to ERfollow up with me after seeing specialist spatient is already seeing dr. bloom for myesthenia gravis, recommende d to follow up with dr. bloom as directed Gastroesop hageal reflux disease 692427354 K21.9 [id number] Evelia Dwyer PA-C [facility] (Peds) [address] [place] [address] 01/24/2022 09:44:05 01/24/2022 15:36:31 Pain of left ankle joint 8958149441 0462565 M25.572 history of fracturema naged by ortho who recommende d weight lossreferr al placed for scientific manager Hyperglycemia 24826146 R 73.9 hgba1c on 12/26/18: 5.9glucome ter provided to patientavo id danielferbayron al to cirilof riley up with dr. bloom as directed Myasthenia gravis 277515 G70.00 patient was seeing specialist s at [facility], Dr. Bolaños and Dr. Pantoja ophthalmol ogist, but no longer covered by insurance. referral to new neurologis t and endocrinol ogist last visitjuany adams signs discussed on when to go to ERfollow up with me after seeing specialist spatijeannine is already seeing dr. bloom for myesthenia gravis, recommende d to follow up with dr. bloom as directed [id number] BUD COUCH DPM [facility] [address] [place] [address] 03/26/2022 16:10:28 03/27/2022 08:04:36 Onychomycosis 017008256 B35.1 Tinea pedis 2506146 B35. 3 Pain in left foot 739655 9179 82658 M79.672 Pain in right foot 03733 73625 06016 M79.671 Idiopathic peripheral neuropathy 61100594 G60.9 Xerosis du e to atopic dermatitis 754625587 L85.3 Diabetic p eripheral neuropathy 118267733 E11.42 Acquired h ammer toe of left foot 6574495181 950590 M20.42 Acquired h ammer toe of right foot 1501191847 699110 M20.41 Arrey - lesion 180792515 L84 [id number] BUD COUCH DPM [facility] [address] [place] [address] 07/16/2022 10:13:41 07/16/2022 13:53:40 Onychomycosis 984559791 B35.1 Tinea pedis 9283613 B35. 3 Pain in left foot 669970 9938 78999 M79.672 Pain in right foot 02925 38766 70353 M79.671 Idiopathic peripheral neuropathy 91564720 G60.9 Xerosis du e to atopic dermatitis 005388893 L85.3 Diabetic p eripheral neuropathy 955430997 E11.42 has obtained Diabetic shoes with moldable inserts Acquired h ammer toe of left foot 6209657295 309343 M20.42 Acquired h ammer toe of right foot 8798282109 382606 M20.41 Arrey - lesion 985811503 L84 [id number] MABLE LOPEZ [facility] ([employer]) [address] [place] [address] 09/04/2022 10:16:53 09/06/2022 13:41:46 Gynecologic examination 66191714 Z01.419 Normal gynecologi c exam today.Cerv ical cancer screening: Last Pap 10/14/20--A SCUS, +hrHPV. Updated todayBreas t cancer screening: Reviewed recommenda tions for initiation at age 40 with annual screening. Discussed SBEColonos copy: n/aSTI screening: endocervic al cultures, treat as needed. Safe sex practices discussed. Contracept ion: none, trying to conceiveDi et/exercis e: Counseled regarding importance of physical activity, healthy diet and appropriat e calcium intake.RTC in 1yr Screening for malignant neoplasm of cervix 674340737 Z12.4 -Last pap 10/14/20--A SCUS, +hrHPV. Colposcopy 12/23/20--n o lesions, ECC negative.- Hx of abnormal- pap--LSIL- 03/12/2019 colposcopy --negative -Cervix grossly normal on exam-Allison velez updated today. Venereal d isease screening 338946180 Z11.3 -Denies symptoms, will treat as indicated. Female infertility 98758 08 N97.9 -Hypogonad ism and secondary amenorrhea due to hyperprola ctinemia/p ituitary adenoma and was seeing endocrinol ogshadia at [facility]. States she was recently told the adenoma is gone now.-Sees reproducti ve endocrinol ogshadia, currently going through fertility workup-Has tried Letrozole, no success.-C ontinue to follow with reproducliliana schulz endocrinemerald crook. Obesity 066827519 E66.9 BMI 38.2 [id number] BUD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
--- OUTSIDE RECORDS SUMMARY | 2024-06-23 12:47 | XMS_ITS ---
Author Organization [facility] Address [address] [place] [address] Care Team Providers Care Motor Tester Name Role Phone Letha Carroll Primary Care Provider [phone] REASON FOR VISIT aravind li started Encounters Encounter Location Date Provider Diagnosis [facility] [address] [place] [address] 06/22/2024 Letha Carroll Plan Of Treatment Next Appt Details Provider Name:Letha Carroll, 10:00:00 AM, [address] [place], [address], Progress Notes * GARCIA DAVISADOB:1990 (33 yo F)Acc No.[id number]:06/22/2024 Patient:?JSOE ROBERTO DAVISKATHIE :1990???Age:33 Y???Sex:Female Address:[address] [place] [address], [address] * * Date:?
--- OUTSIDE RECORDS SUMMARY | 2024-06-23 12:47 | XMS_ITS | Data Portability ---
Author Organization [facility] [email or web address], Main Office Address [address] [place] [address] Assessment No assessment recorded. Plan of Treatment Reminders Order Date Submit Date Provider Last Modified By Organization Details Last Modified Time Details Appointments None recorded. Lab glycohemogl obin, total, blood [address] (Lab), [address] [place], [address], 14:57:45 insulin, serum [address] (Lab), [address] [place], [address], 3 14:57:45 prolactin, serum [address] (Lab), [address] [place], [address], 3 14:57:45 TSH, serum or plasma [address] (Lab), [address] [place], [address], 3 14:57:45 T4, free, serum [address] (Lab), [address] [place], [address], 3 14:57:45 CMP, serum or plasma [address] (Lab), [address] [place], [address], 3 14:57:45 Referral None recorded. Procedures None recorded. Surgeries None recorded. Imaging None recorded. Medication Orders clomiphene citrate 50 mg tablet 2022 023 CORINNA [facility], [address] [place], [address], 3 14:50:56 cabergoline 0.5 mg tablet 2022 023 frank [facility], [address] [place], [address], 3 17:33:09 Patient TargetsNo targets recorded. Patient InstructionsNo instructions recorded. Reason for Referral None Reported. Results Created Date Observation Date Name Description Value Unit Range Abnormal Flag Note LastModifiedBy Organization Detail LastModifiedTime 12/10/1912/09/2020 HEMOG LOBIN A1C HA1C 6.2 % 4.0-6. 0 high Diabe jesica Scree osiris Crite pankaj: <5.7% Consi stent with absen ce of diabe jesica 5.7-6 .4% Consi stent with incre ased risk for diabe jesica (pred iabet es) >OR=6 .5% Consi stent with diabe jesica REFER ENCE: Diabe jesica Care 2016, 39(Bentley ppl.1 ):s13 -s22 Not Available [facility] (Lab) [address] [place], [address], 12/09/2020 20:48:15 12/10/19 21 12/09/2020 TSH thyroid-stim ulating hormone 0.845 uIU/m L 0.465- 4.680 Not Available [facility] (Lab) [address] [place], [address], 12/09/2020 18:43:22 12/10/19 21 12/09/2020 T4 FREE free T4 0.86 NG/dL 0.78-2 .19 Not Available [facility] (Lab) [address] [place], [address], 12/09/2020 18:31:14 12/10/19 21 12/09/2020 PROLA CTIN prolac 33.3 NG/mL PROLA CTIN REFER ENCE RANGE NONPR EGNAN T NONME NOPAU FIDELINA FEMAL ES: 3.0-1 8.6 ng/mL PREGN ANT FEMAL ES: 0.0-2 08.5 ng/mL POSTM ENOPA USAL FEMAL ES: 0.0-2 7.8 ng/mL RAYMUNDO L MALES : 3.7-1 7.9 ng/mL Not Available [facility] (Lab) [address] [place], [address], 12/09/2020 18:31:06 12/10/19 21 12/09/2020 LIPID PANEL cholesterol 178 mg/dL 140-19 9 [facility] PIERRE NSUS RECOM MENDA TION FOR LIDIA STERO L: ADULT CHILD LOW RISK: <200 <170 BORDE RLINE : <200- 239 ----- HIGH RISK: >240 >200 Not Available [facility] (Lab) [address] [place], [address], 12/09/2020 18:09:29 12/10/19 21 12/09/2020 LIPID PANEL triglyceride s 88 mg/dL 0-150 [facility] PIERRE NSUS REPOR T RECOM MENDA TION FOR TRIGL YCERI NAVA: ADULT CHILD LOW RISK: <150 ----- BODER LINE: 150-1 99 ----- HIGH RISK: >200 ----- Not Available [facility] (Lab) [address] [place], [address], 12/09/2020 18:09:29 12/10/19 21 12/09/2020 LIPID PANEL HDL cholesterol 68 mg/dL 40- Not Available [facility] (Lab) [address] [place], [address], 12/09/2020 18:09:29 12/10/19 21 12/09/2020 LIPID PANEL LDL cholesterol, calculated 92 mg/dL 0-130 [facility] PIERRE NSUS REPOR T RECOM MENDA TIONS FOR LDL: ADULT CHILD LOW RISK <130 <110 (OPTI MAL LDL) <100 ----- BORDE RLINE : 130-1 59 ----- HIGH RISK: >160 >130 A TRIGL YCERI DE RESUL T >400 INVAL IDATE S THE CALCU LATIO N FOR LDL FRACT IONAT ION - THE LDL RESUL T WILL NOT BE REPOR SABRINA. Not Available [facility] (Lab) [address] [place], [address], 12/09/2020 18:09:29 12/10/19 21 12/09/2020 COMPR EHENS MELISSA METAB OLIC PANEL sodium 139 mmol/ L 137-14 5 Not Available [facility] (Lab) [address] [place], [address], 12/09/2020 18:09:23 12/10/19 21 12/09/2020 COMPR EHENS MELISSA METAB OLIC PANEL potassium 4.4 mmol/ L 3.5-5. 1 Not Available [facility] (Lab) [address] [place], [address], 12/09/2020 18:09:23 12/10/19 21 12/09/2020 COMPR EHENS MELISSA METAB OLIC PANEL chloride 101 mmol/ L 98-107 Not Available [facility] (Lab) [address] [place], [address], 12/09/2020 18:09:23 12/10/19 21 12/09/2020 COMPR EHENS MELISSA METAB OLIC PANEL carbon dioxide 30 mmol/ L 22-30 Not Available [facility] (Lab) [address] [place], [address], 12/09/2020 18:09:23 12/10/19 21 12/09/2020 COMPR EHENS MELISSA METAB OLIC PANEL agap 12.4 mmol/ L 14-22 low Not Available [facility] (Lab) [address] [place], [address], 12/09/2020 18:09:23 12/10/19 21 12/09/2020 COMPR EHENS MELISSA METAB OLIC PANEL glucose 79 mg/dL 70-99 Not Available [facility] (Lab) [address] [place], [address], 12/09/2020 18:09:23 12/10/19 21 12/09/2020 COMPR EHENS MELISSA METAB OLIC PANEL BUN 6 mg/dL 8-19 low Not Available [facility] (Lab) [address] [place], [address], 12/09/2020 18:09:23 12/10/19 21 12/09/2020 COMPR EHENS MELISSA METAB OLIC PANEL creatinine 0.49 mg/dL 0.66-1 .25 low Not Available [facility] (Lab) [address] [place], [address], 12/09/2020 18:09:23 12/10/19 21 12/09/2020 COMPR EHENS MELISSA METAB OLIC PANEL GFR >60 Refer ence Range : [place] ge GFR Healt hy Adult : >60 mL/mi n/1.7 3 m2 Chron ic Kidne y Disea se: 15-60 mL/mi n/1.7 3 m2 Kidne y Failu re: <15/m L/min /1.73 m2 www.[email or web address]. nih.g ov MDRD study equat ion hasn' t been valid ated in child lewis <18 yrs of age, pregn ant women , the elder ly >85 yrs of age, or in some racia l or ethni c subgr oups, suc as Hispa nics. Outsi de the valid ated farooq eters , estim ated GFR is less accur ate requi ring clini rikki judgm ent on a case by case basis . Clini rikki inter preta tion for other races and ages must be made by the clini renu . Futhe rmore , any of th e limit ation s with the use of serum creat inine relat ed to nutri kelsey l statu s o r medic ation usage hasn' t accou nted for the MDRD Study equat ion. For perso ns < 18 yrs of age, a pedia tric GFR calcu lator can be locat ed on the [facility] websi te: [email or web address] :[email or web address] rg/pr ofess ional s/kdo qi/gf r_cal culat or Not Available [facility] (Lab) [address] [place], [address], 12/09/2020 18:09:23 12/10/19 21 12/09/2020 COMPR EHENS MELISSA METAB OLIC PANEL alkaline phosphatase 84 U/L 38-126 Not Available [facility] (Lab) [address] [place], [address], 12/09/2020 18:09:23 12/10/19 21 12/09/2020 COMPR EHENS MELISSA METAB OLIC PANEL alanine aminotransfe rase 15 U/L 0-35 Not Available [facility] (Lab) [address] [place], [address], 12/09/2020 18:09:23 12/10/19 21 12/09/2020 COMPR EHENS MELISSA METAB OLIC PANEL aspartate aminotransfe rase 20 U/L 15-37 Not Available [facility] (Lab) [address] [place], [address], 12/09/2020 18:09:23 12/10/19 21 12/09/2020 COMPR EHENS MELISSA METAB OLIC PANEL bilirubin, total 0.30 mg/dL 0.20-1 .30 Not Available [facility] (Lab) [address] [place], [address], 12/09/2020 18:09:23 12/10/19 21 12/09/2020 COMPR EHENS MELISSA METAB OLIC PANEL calcium 9.1 mg/dL 8.4-10 .2 Not Available [facility] (Lab) [address] [place], [address], 12/09/2020 18:09:23 12/10/19 21 12/09/2020 COMPR EHENS MELISSA METAB OLIC PANEL total protein 7.1 g/dL 6.3-8. 2 Not Available [facility] (Lab) [address] [place], [address], 12/09/2020 18:09:23 12/10/19 21 12/09/2020 COMPR EHENS MELISSA METAB OLIC PANEL albumin 4.3 g/dL 3.4-5. 0 Not Available [facility] (Lab) [address] [place], [address], 12/09/2020 18:09:23 12/10/19 21 12/09/2020 COMPR EHENS MELISSA METAB OLIC PANEL globulin 2.8 g/dL 2.6-4. 2 Not Available [facility] (Lab) [address] [place], [address], 12/09/2020 18:09:23 12/10/19 21 12/09/2020 COMPR EHENS MELISSA METAB OLIC PANEL A/G ratio 1.5 ratio 1.0-2. 0 Not Available [facility] (Lab) [address] [place], [address], 12/09/2020 18:09:23 04/24/20 21 04/24/2021 HEMOG LOBIN A1C HA1C 5.8 % 4.0-6. 0 Diabe jesica Scree osiris Crite pankaj: <5.7% Consi stent with absen ce of diabe jesica 5.7-6 .4% Consi stent with incre ased risk for diabe jesica (pred iabet es) >OR=6 .5% Consi stent with diabe jesica REFER ENCE: Diabe jesica Care 2016, 39(Bentley ppl.1 ):s13 -s22 Not Available [facility] (Lab) [address] [place], [address], 04/24/2021 19:17:47 04/24/20 21 04/24/2021 TSH thyroid-stim ulating hormone 0.507 uIU/m L 0.465- 4.680 Not Available [facility] (Lab) [address] [place], [address], 04/24/2021 15:31:56 04/24/20 21 04/24/2021 T3 FREE free T3 3.4 pg/mL 2.77-5 .27 Not Available [facility] (Lab) [address] [place], [address], 04/24/2021 15:17:16 04/24/20 21 04/24/2021 T4 FREE free T4 0.89 NG/dL 0.78-2 .19 Not Available [facility] (Lab) [address] [place], [address], 04/24/2021 15:17:12 04/24/20 21 04/24/2021 COMPR EHENS MELISSA METAB OLIC PANEL sodium 137 mmol/ L 137-14 5 Not Available [facility] (Lab) [address] [place], [address], 04/24/2021 15:01:11 04/24/20 21 04/24/2021 COMPR EHENS MELISSA METAB OLIC PANEL potassium 4.1 mmol/ L 3.5-5. 1 Not Available [facility] (Lab) [address] [place], [address], 04/24/2021 15:01:11 04/24/20 21 04/24/2021 COMPR EHENS MELISSA METAB OLIC PANEL chloride 105 mmol/ L 98-107 Not Available [facility] (Lab) [address] [place], [address], 04/24/2021 15:01:11 04/24/20 21 04/24/2021 COMPR EHENS MELISSA METAB OLIC PANEL carbon dioxide 27 mmol/ L 22-30 Not Available [facility] (Lab) [address] [place], [address], 04/24/2021 15:01:11 04/24/20 21 04/24/2021 COMPR EHENS MELISSA METAB OLIC PANEL agap 9.1 mmol/ L 14-22 low Not Available [facility] (Lab) [address] [place], [address], 04/24/2021 15:01:11 04/24/20 21 04/24/2021 COMPR EHENS MELISSA METAB OLIC PANEL glucose 86 mg/dL 70-99 Not Available [facility] (Lab) [address] [place], [address], 04/24/2021 15:01:11 04/24/20 21 04/24/2021 COMPR EHENS MELISSA METAB OLIC PANEL BUN 6 mg/dL 8-19 low Not Available [facility] (Lab) [address] [place], [address], 04/24/2021 15:01:11 04/24/20 21 04/24/2021 COMPR EHENS MELISSA METAB OLIC PANEL creatinine 0.50 mg/dL 0.66-1 .25 low Not Available [facility] (Lab) [address] [place], [address], 04/24/2021 15:01:11 04/24/20 21 04/24/2021 COMPR EHENS MELISSA METAB OLIC PANEL GFR >60 Refer ence Range : [place] ge GFR Healt hy Adult : >60 mL/mi n/1.7 3 m2 Chron ic Kidne y Disea se: 15-60 mL/mi n/1.7 3 m2 Kidne y Failu re: <15/m L/min /1.73 m2 www.[email or web address]. nih.g ov The MDRD study equat ion has not been valid ated in child lewis <18 years of age; pregn ant women ; the elder ly >85 years of age; or in some racia l or ethni c subgr oups, such as Hispa nics. Outsi de the valid ated farooq eters , estim ated GFR is less accur ate, requi ring clini rikki judgm ent on a case- by-ca se basis . Clini rikki inter preta tion for other races and ages must be made by the clini renu. The MDRD study equat ion has not been valid ated for the evalu ation of serum creat inine relat ed to nutri kelsey l statu s or medic ation usage . For perso ns <18 years of age, a pedia tric GFR calcu lator is avail able on the [facility] websi te: [email or web address] :[email or web address] [email or web address] rg/pr ofess ional s/kdo qi/gf r_cal culat or Not Available [facility] (Lab) [address] [place], [address], 04/24/2021 15:01:11 04/24/20 21 04/24/2021 COMPR EHENS MELISSA METAB OLIC PANEL alkaline phosphatase 62 U/L 38-126 Not Available [facility] (Lab) [address] [place], [address], 04/24/2021 15:01:11 04/24/20 21 04/24/2021 COMPR EHENS MELISSA METAB OLIC PANEL alanine aminotransfe rase 14 U/L 0-35 Not Available [facility] (Lab) [address] [place], [address], 04/24/2021 15:01:11 04/24/20 21 04/24/2021 COMPR EHENS MELISSA METAB OLIC PANEL aspartate aminotransfe rase 21 U/L 15-37 Not Available [facility] (Lab) [address] [place], [address], 04/24/2021 15:01:11 04/24/20 21 04/24/2021 COMPR EHENS MELISSA METAB OLIC PANEL bilirubin, total 0.30 mg/dL 0.20-1 .30 Not Available [facility] (Lab) [address] [place], [address], 04/24/2021 15:01:11 04/24/20 21 04/24/2021 COMPR EHENS MELISSA METAB OLIC PANEL calcium 8.4 mg/dL 8.4-10 .2 Not Available [facility] (Lab) [address] [place], [address], 04/24/2021 15:01:11 04/24/20 21 04/24/2021 COMPR EHENS MELISSA METAB OLIC PANEL total protein 6.9 g/dL 6.3-8. 2 Not Available [facility] (Lab) [address] [place], [address], 04/24/2021 15:01:11 04/24/20 21 04/24/2021 COMPR EHENS MELISSA METAB OLIC PANEL albumin 3.9 g/dL 3.4-5. 0 Not Available [facility] (Lab) [address] [place], [address], 04/24/2021 15:01:11 04/24/20 21 04/24/2021 COMPR EHENS MELISSA METAB OLIC PANEL globulin 3.0 g/dL 2.6-4. 2 Not Available [facility] (Lab) [address] [place], [address], 04/24/2021 15:01:11 04/24/20 21 04/24/2021 COMPR EHENS MELISSA METAB OLIC PANEL A/G ratio 1.3 ratio 1.0-2. 0 Not Available [facility] (Lab) [address] [place], [address], 04/24/2021 15:01:11 12/05/19 22 12/05/2021 PROLA CTIN prolactin 33.5 NG/mL 4.8-23 .3 high Perfo rmed at: [facility] n [address] [facility], [place] [id number] Lab Direc tor: Stephen wade PhD, Phone : [phone] Not Available [facility] (Lab) [address] [place], [address], 12/05/2021 09:12:27 12/05/19 22 12/04/2021 TSH thyroid-stim ulating hormone 1.100 uIU/m L 0.465- 4.680 Not Available [facility] (Lab) [address] [place], [address], 12/04/2021 11:24:27 12/05/19 22 12/04/2021 T3 FREE free T3 3.7 pg/mL 2.77-5 .27 Not Available [facility] (Lab) [address] [place], [address], 12/04/2021 11:24:23 12/05/19 22 12/04/2021 T4 FREE free T4 0.97 NG/dL 0.78-2 .19 Not Available [facility] (Lab) [address] [place], [address], 12/04/2021 11:24:21 12/05/19 22 12/04/2021 COMPR EHENS MELISSA METAB OLIC PANEL sodium 139 mmol/ L 137-14 5 Not Available [facility] (Lab) [address] [place], [address], 12/04/2021 11:22:37 12/05/19 22 12/04/2021 COMPR EHENS MELISSA METAB OLIC PANEL potassium 4.5 mmol/ L 3.5-5. 1 Not Available [facility] (Lab) [address] [place], [address], 12/04/2021 11:22:37 12/05/19 22 12/04/2021 COMPR EHENS MELISSA METAB OLIC PANEL chloride 105 mmol/ L 98-107 Not Available [facility] (Lab) [address] [place], [address], 12/04/2021 11:22:37 12/05/19 22 12/04/2021 COMPR EHENS MELISSA METAB OLIC PANEL carbon dioxide 29 mmol/ L 22-30 Not Available [facility] (Lab) [address] [place], [address], 12/04/2021 11:22:37 12/05/19 22 12/04/2021 COMPR EHENS MELISSA METAB OLIC PANEL anion gap 9.5 mmol/ L 14-22 low Not Available [facility] (Lab) [address] [place], [address], 12/04/2021 11:22:37 12/05/19 22 12/04/2021 COMPR EHENS MELISSA METAB OLIC PANEL glucose 106 mg/dL 70-99 high Not Available [facility] (Lab) [address] [place], [address], 12/04/2021 11:22:37 12/05/19 22 12/04/2021 COMPR EHENS MELISSA METAB OLIC PANEL BUN 9 mg/dL 8-19 Not Available [facility] (Lab) [address] [place], [address], 12/04/2021 11:22:37 12/05/19 22 12/04/2021 COMPR EHENS MELISSA METAB OLIC PANEL creatinine 0.57 mg/dL 0.66-1 .25 low Not Available [facility] (Lab) [address] [place], [address], 12/04/2021 11:22:37 12/05/19 22 12/04/2021 COMPR EHENS MELISSA METAB OLIC PANEL GFR >60 Refer ence Range : [place] GFR Healt hy Adult : >60 mL/mi n/1.7 3 m2 Chron ic Kidne y Disea se: 15-60 mL/mi n/1.7 3 m2 Kidne y Failu re: <15/m L/min /1.73 m2 www.n iddk. nih.g ov The MDRD study equat ion has not been valid ated in child lewis <18 years of age; pregn ant women ; the elder ly >85 years of age; or in some racia l or ethni c subgr oups, such as Hispa nics. Outsi de the valid ated farooq eters , estim ated GFR is less accur ate, requi ring clini rikki judgm ent on a case- by-ca se basis . Clini rikki inter preta tion for other races and ages must be made by the clini renu. The MDRD study equat ion has not been valid ated for the evalu ation of serum creat inine relat ed to nutri kelsey l statu s or medic ation usage . For perso ns <18 years of age, a pedia tric GFR calcu lator is avail able on the [facility] websi te: https :[email or web address] [email or web address] rg/pr ofess ional s/kdo qi/gf r_cal culat or Not Available [facility] (Lab) [address] [place], [address], 12/04/2021 11:22:37 12/05/19 22 12/04/2021 COMPR EHENS MELISSA METAB OLIC PANEL alkaline phosphatase 75 U/L 38-126 Not Available [facility] (Lab) [address] [place], [address], 12/04/2021 11:22:37 12/05/19 22 12/04/2021 COMPR EHENS MELISSA METAB OLIC PANEL alanine aminotransfe rase 14 U/L 0-35 Not Available [facility] (Lab) [address] [place], [address], 12/04/2021 11:22:37 12/05/19 22 12/04/2021 COMPR EHENS MELISSA METAB OLIC PANEL aspartate aminotransfe rase 19 U/L 15-37 Not Available [facility] (Lab) [address] [place], [address], 12/04/2021 11:22:37 12/05/19 22 12/04/2021 COMPR EHENS MELISSA METAB OLIC PANEL bilirubin, total 0.40 mg/dL 0.20-1 .30 Not Available [facility] (Lab) [address] [place], [address], 12/04/2021 11:22:37 12/05/19 22 12/04/2021 COMPR EHENS MELISSA METAB OLIC PANEL calcium 9.3 mg/dL 8.4-10 .2 Not Available [facility] (Lab) [address] [place], [address], 12/04/2021 11:22:37 12/05/19 22 12/04/2021 COMPR EHENS MELISSA METAB OLIC PANEL total protein 7.7 g/dL 6.3-8. 2 Not Available [facility] (Lab) [address] [place], [address], 12/04/2021 11:22:37 12/05/19 22 12/04/2021 COMPR EHENS MELISSA METAB OLIC PANEL albumin 4.3 g/dL 3.4-5. 0 Not Available [facility] (Lab) [address] [place], [address], 12/04/2021 11:22:37 12/05/19 22 12/04/2021 COMPR EHENS MELISSA METAB OLIC PANEL globulin 3.4 g/dL 2.6-4. 2 Not Available [facility] (Lab) [address] [place], [address], 12/04/2021 11:22:37 12/05/19 22 12/04/2021 COMPR EHENS MELISSA METAB OLIC PANEL A/G ratio 1.3 ratio 1.0-2. 0 Not Available [facility] (Lab) [address] [place], [address], 12/04/2021 11:22:37 07/02/19 23 07/03/2022 INSUL IN insulin 10.8 uIU/m L 2.6-24 .9 Perfo rmed at: [facility] [address] [place] [address]41 Lab Direc tor: Stephen wade PhD, Phone : [phone] Not Available [facility] (Lab) [address] [place], [address], 07/03/2022 11:12:24 07/02/19 23 07/03/2022 PROLA CTIN prolactin 33.3 NG/mL 4.8-23 .3 high Perfo rmed at: [address] [address] Lab Direc tor: Stephen wade PhD, Phone : [phone] Not Available [facility] (Lab) [address] [place], [address], 07/03/2022 08:14:30 07/02/1907/02/2022 T4 FREE free T4 1.03 NG/dL 0.78-2 .19 Not Available [facility] (Lab) [address] [place], [address], 07/02/2022 16:58:32 07/02/19 23 07/02/2022 TSH thyroid-stim ulating hormone 0.406 uIU/m L 0.465- 4.680 low Not Available [facility] (Lab) [address] [place], [address], 07/02/2022 15:26:46 07/02/19 23 07/02/2022 T3 FREE free T3 3.5 pg/mL 2.77-5 .27 Not Available [facility] (Lab) [address] [place], [address], 07/02/2022 15:24:59 07/02/19 23 07/02/2022 HEMOG LOBIN A1C HA1C 5.9 % 4.0-6. 0 Diabe jesica Sariahe osiris Crite pankaj: <5.7% Consi stent with absen ce of diabe jesica 5.7-6 .4% Consi stent with incre ased risk for diabe jesica (pred iabet es) >OR=6 .5% Consi stent with diabe jesica REFER ENCE: Diabe jesica Care 2016, 39(Bentley ppl.1 ):s13 -s22 Not Available [facility] (Lab) [address] [place], [address], 07/02/2022 14:36:01 07/02/19 23 07/02/2022 COMPR EHENS MELISSA METAB OLIC PANEL sodium 139 mmol/ L 137-14 5 Not Available [facility] (Lab) [address] [place], [address], 07/02/2022 12:15:11 07/02/19 23 07/02/2022 COMPR EHENS MELISSA METAB OLIC PANEL potassium 3.9 mmol/ L 3.5-5. 1 Not Available [facility] (Lab) [address] [place], [address], 07/02/2022 12:15:11 07/02/19 23 07/02/2022 COMPR EHENS MELISSA METAB OLIC PANEL chloride 104 mmol/ L 98-107 Not Available [facility] (Lab) [address] [place], [address], 07/02/2022 12:15:11 07/02/19 23 07/02/2022 COMPR EHENS MELISSA METAB OLIC PANEL carbon dioxide 29 mmol/ L 22-30 Not Available [facility] (Lab) [address] [place], [address], 07/02/2022 12:15:11 07/02/19 23 07/02/2022 COMPR EHENS MELISSA METAB OLIC PANEL anion gap 9.9 mmol/ L 14-22 low Not Available [facility] (Lab) [address] [place], [address], 07/02/2022 12:15:11 07/02/19 23 07/02/2022 COMPR EHENS MELISSA METAB OLIC PANEL glucose 88 mg/dL 70-99 Not Available [facility] (Lab) [address] [place], [address], 07/02/2022 12:15:11 07/02/19 23 07/02/2022 COMPR EHENS MELISSA METAB OLIC PANEL BUN 9 mg/dL 8-19 Not Available [facility] (Lab) [address] [place], [address], 07/02/2022 12:15:11 07/02/19 23 07/02/2022 COMPR EHENS MELISSA METAB OLIC PANEL creatinine 0.58 mg/dL 0.66-1 .25 low Not Available [facility] (Lab) [address] [place], [address], 07/02/2022 12:15:11 07/02/1907/02/2022 COMPR EHENS MELISSA METAB OLIC PANEL GFR >60 Refer ence Range : [place] ge GFR Healt hy Adult : >60 mL/mi n/1.7 3 m2 Chron ic Kidne y Disea se: 15-60 mL/mi n/1.7 3 m2 Kidne y Failu re: <15/m L/min /1.73 m2 [email or web address] [email or web address] nih.g ov The MDRD study equat ion has not been valid ated in child lewis <18 years of age; pregn ant women ; the elder ly >85 years of age; or in some racia l or ethni c subgr oups, such as Hispa nics. Outsi de the valid ated farooq eters , estim ated GFR is less accur ate, requi ring clini rikki judgm ent on a case- by-ca se basis . Clini rikki inter preta tion for other races and ages must be made by the clini renu. The MDRD study equat ion has not been valid ated for the evalu ation of serum creat inine relat ed to nutri kelsey l statu s or medic ation usage . For perso ns <18 years of age, a pedia tric GFR calcu lator is avail able on the [facility] websi te: https ://ww w.kid derek.o rg/pr ofess ional s/kdo qi/gf r_cal culat or Not Available [facility] (Lab) [address] [place], [address], 07/02/2022 12:15:11 07/02/19 23 07/02/2022 COMPR EHENS MELISSA METAB OLIC PANEL alkaline phosphatase 75 U/L 38-126 Not Available [facility] (Lab) [address] [place], [address], 07/02/2022 12:15:11 07/02/19 23 07/02/2022 COMPR EHENS MELISSA METAB OLIC PANEL alanine aminotransfe rase 19 U/L 0-35 Not Available [facility] (Lab) [address] [place], [address], 07/02/2022 12:15:11 07/02/19 23 07/02/2022 COMPR EHENS MELISSA METAB OLIC PANEL aspartate aminotransfe rase 24 U/L 15-37 Not Available [facility] (Lab) [address] [place], [address], 07/02/2022 12:15:11 07/02/19 23 07/02/2022 COMPR EHENS MELISSA METAB OLIC PANEL bilirubin, total 0.80 mg/dL 0.20-1 .30 Not Available [facility] (Lab) [address] [place], [address], 07/02/2022 12:15:11 07/02/19 23 07/02/2022 COMPR EHENS MELISSA METAB OLIC PANEL calcium 8.8 mg/dL 8.4-10 .2 Not Available [facility] (Lab) [address] [place], [address], 07/02/2022 12:15:11 07/02/19 23 07/02/2022 COMPR EHENS MELISSA METAB OLIC PANEL total protein 8.1 g/dL 6.3-8. 2 Not Available [facility] (Lab) [address] [place], [address], 07/02/2022 12:15:11 07/02/19 23 07/02/2022 COMPR EHENS MELISSA METAB OLIC PANEL albumin 4.4 g/dL 3.4-5. 0 Not Available [facility] (Lab) [address] [place], [address], 07/02/2022 12:15:11 07/02/19 23 07/02/2022 COMPR EHENS MELISSA METAB OLIC PANEL globulin 3.7 g/dL 2.6-4. 2 Not Available [facility] (Lab) [address] [place], [address], 07/02/2022 12:15:11 07/02/19 23 07/02/2022 COMPR EHENS MELISSA METAB OLIC PANEL A/G ratio 1.2 ratio 1.0-2. 0 Not Available [facility] (Lab) [address] [place], [address], 07/02/2022 12:15:11 05/23/20 21 05/23/2021 MRI, pitui tary, w/wo contr ast No observ ation record ed. [id number] 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 Images are review ed in the melton l, sagitt al, and axial plane. Diffus ion-we ighted images are review ed. FINDIN GS: Brain: The clark-w isabella matter differ entiat ion is within normal limits withou t eviden ce of demyel inatin g proces s. No eviden ce of enceph alomal acia. No Page 1 of 3 [facility] Carlee llamas Name: GARCIA DAVIS Access ion #: [id number] Sex: F : 1990 9 Exam Date: 2020 4:46 PM Exam Name: MRI BRAIN W/WO Admitt ing Diagno sis(es ): eviden ce of infarc tion. No eviden ce of mass effect or cortic al atroph y. The diffus ion weight ed sequen handy are normal . The bilate ral 7/8 nerve comple x, brains tem and cerebe llum are grossl y normal . The previo usly identi fied micro adenom a is not well seen on today' s study. No new lesion s are seen. Ventri cular system midlin e, normal size, normal develo pment. Osseou s: The calvar ium appear s normal . Sinuse s: Unrema rkable . Tempor al mastoi d air cells: Unrema rkable Extra- axial fluid space: Unrema rkable IMPRES ZHEN: 1. Unrema rkable contra st and noncon trast MRI examin ation of the brain. The previo usly descri bed micro adenom a is not clearl y identi fied on today' s exam. No new pituit reza abnorm alitie s are seen. Create d and electr onical ly signed by: Jos Watkins ch, DO Signed Date: 2020 5:58 PM (CT) Page 2 of 3 [facility] Patien t Name: GARCIA DAVIS Access ion #: [id number] Sex: F : 1990 9 Exam Date: 2020 4:46 PM Exam Name: MRI BRAIN W/WO Admitt ing Diagno sis(es ): Dictat ed by: Jos Watkins ch, DO DD: 2020 5:58 PM (CT) DT: 2020 5:58 PM (CT) Page 3 of 3 [id number] [facility] (Imaging) [address] [place], [address], 07/25/2022 05:04:56 07/16/19 23 07/16/2022 MRI, pitui tary, w/wo contr ast No observ ation record ed. [id number] [facility] Add On Lab Orders [address] [place], [address], 07/25/2022 05:04:56 07/16/19 23 07/16/2022 [facility] pit[facility]ary [facility] [address] [place] [address] Patitrini t Name: GARCIA DAVIS Access ion #: [id number] Sex: F : 1990 0 Locati on: RAD Attend ing Physic rodri: BJ MAR Orderi ng Physic rodri: BJ MAR Exam Date: 2/20/2 023 12:16 PM Exam Name: MRI TRACY MORENO Admitt ing Diagno sis(es ): RADIOL OGY REPORT - FINAL EXAM: MRI TRACY MORENO HISTOR Y: headac hes, elevat ed prolac tin level, 33.3 COMPAR JORGE: MRI 2020, 2018 TECHNI QUE: Dose: 21 ml Multih ance gadoli neum Multip lanar multis equenc e pre and post IV contra st MR images of the brain specif ically evalua ting the tracy cobb was perfor med. FINDIN GS: The pituit reza, infund ibulum , and optic chiasm are unrema rkable . The partia lly visual ized parana fidelina sinuse s are clear. The optic chiasm is within normal limits . Axial imagin g demons trates preser vation of the clark-w isabella Page 1 of 2 [facility] Name: GARCIA DAVIS Access ion #: [id number] Sex: F : 1990 0 Exam Date: 12:16 PM Exam Name: MRI TRACY MORENO Admitt ing Diagno sis(es ): matter differ entiat ion throug hout the suprat entori al and infrat entori al levels . No eviden ce of cortic al sulcal efface ment. No eviden ce of ventri culome robbie or shift. No eviden ce of intrap arench ymal edema. No eviden ce of hemorr heidy. Mild inflam matory change s, retent ion polyp measur ing 1 cm, left maxill reza sinus. IMPRES ZHEN: Unrema rkable pre and post contra st MRI of the sella. Create d and electr onical ly signed by: Vivek ortiz MD Signed Date: 4:47 PM (CT) Dictat ed by: Vivek ortiz MD DD: 4:47 PM (CT) DT: 4:47 PM (CT) Page 2 of 2 [id number] [facility] (Imaging) [address] [place], [address], 07/25/2022 05:04:56 Result Notes None recorded. Problems Name Problem SNOMED Code Status Onset Date Resolution Date Notes Provider Name and Address Organization Details Recorded Time Irregular periods 81569590 Active 2022 Bj Mar MD [address] [facility] [place] [address], [place], [address] , [facility] [email or web address] 3 14:50:05 Neoplasm of brain 035959651 Active 2018 Not Available [facility] 3 04:54:12 Prolactinoma 660786613 Active 2021 Not Available [facility] 3 04:54:12 Gastroesophag eal reflux disease 531695976 Active 2021 Not Available [facility] 3 04:54:12 Polycystic ovary syndrome 566307675 Active 2021 Not Available [facility] 3 04:54:12 Migraine 92775832 Active 2018 Not Available [facility] 3 04:54:12 Hypothyroidis m 99548310 Active 2021 Not Available [facility] 3 04:54:12 Obesity 855476417 Active 2021 Not Available [facility] 3 04:54:13 Female infertility 0097553 Active 2021 Not Available [facility] 3 04:54:13 Prediabetes 258269181 Active 2021 Not Available [facility] 3 04:54:13 Problem Notes None recorded. Procedures Surgical History Date Name Laterality Status Provider Name and Address Organization Details Recorded Time Ankle completed Not Available [facility] 05/2022 04:43:55 Imaging Results Imaging Date Name Status LastModified by Organiz ation Details LastModified Time 07/16/2022 MRI, pituitary, w/wo contrast completed [id number] [facility] Add On Lab Orders [address] [place], [address], 07/25/2022 05:04:56 07/16/2022 MRI pituitary wwo completed [id number] [facility] (Imaging) [address] [place], [address], 07/25/2022 05:04:56 05/23/2021 MRI, pituitary, w/wo contrast completed [id number] [facility] [address] [place], [address], 07/25/2022 05:04:56 05/23/2021 MRI, brain, w/wo contrast completed [id number] [facility] (Imaging) [address] [place], [address], 07/25/2022 05:04:56 Procedure Notes None recorded. Medical Equipment None Reported. Medications Name Sig Start Date Stop Date Status Note LastModified by Organization Details LastModified Time terbinafine HCl 1 % topical cream APPLY CREAM TOPICALLY TO AFFECTED AND SURROUNDE D AREAS TWICE DAILY FOR 30 DAYS OR UNTIL SYMPTOMS RESOLVE 11/29 completed Not Available Not Available Not Available terconazole 0.4 % vaginal cream INSERT 1 APPLICATO RFUL VAGINALLY ONCE DAILY AT BEDTIME FOR 7 DAYS 11/29 completed Not Available Not Available Not Available azelastine 0.05 % eye drops INSTILL 1 DROP INTO EACH EYE TWICE DAILY NEEDED WHEN EYES ARE ITCHY active Not Available Not Available No t Available ammonium lactate 12 % lotion APPLY LOTION TOPICALLY TO AFFECTED AREA TWICE DAILY active Not Available Not Available No t Available polyethylen e glycol 3350 17 gram oral powder packet 11/29 completed Not Available Not Available Not Available triamcinolo ne acetonide 0.5 % topical cream 11/29 completed Not Available Not Available Not Available ibuprofen 800 mg tablet TAKE 1 TABLET BY MOUTH THREE TIMES DAILY NEEDED 08/24 completed Not Available Not Available Not Available clomiphene citrate 50 mg tablet take one tablet daily on days two through six of menstrual cycle so total of 5 days every month until positive test 2022 active Not Available Not Available Not Avai lable hydrocodone 5 mg-acetamin ophen 325 mg tablet TAKE 1 TABLET BY MOUTH EVERY 4 HOURS NEEDED FOR PAIN 03/04 completed Not Available Not Available Not Available Elidel 1 % topical cream 11/29 completed Not Available Not Available Not Available famotidine 40 mg tablet TAKE 1 TABLET BY MOUTH ONCE DAILY active Not Available Not Available No t Available propranolol ER 60 mg capsule,24 hr,extended release Take 1 capsule every day by oral route in the morning for 90 days. 08/24 completed Not Available Not Available Not Available gabapentin 400 mg capsule TAKE 1 CAPSULE BY MOUTH THREE TIMES DAILY active Not Available Not Available No t Available terconazole 0.8 % vaginal cream INSERT 1 APPLICATO RFUL VAGINALLY EVERY DAY AT BEDTIME FOR 3 DAYS 11/29 completed Not Available Not Available Not Available metronidazo le 500 mg tablet TAKE 1 TABLET BY MOUTH EVERY 12 HOURS FOR 7 DAYS 11/29 completed Not Available Not Available Not Available levofloxaci n 250 mg tablet TAKE 1 TABLET BY MOUTH ONCE DAILY IN THE MORNING FOR 90 DAYS 04/25 completed Not Available Not Available Not Available ciprofloxac in 500 mg tablet 11/29 completed Not Available Not Available Not Available sulfamethox azole 800 mg-trimetho prim 160 mg tablet TAKE 1 TABLET BY MOUTH TWICE DAILY FOR 10 DAYS 11/29 completed Not Available Not Available Not Available levothyroxi ne 25 mcg tablet Take 1 tablet every day by oral route in the morning for 90 days. active Not Available Not Available No t Available mycophenola te mofetil 500 mg tablet TAKE 1 TABLET BY MOUTH TWICE DAILY active Not Available Not Available No t Available Miconazole- 7 2 % vaginal cream 11/29 completed Not Available Not Available Not Available meloxicam 7.5 mg tablet TAKE 1 TABLET BY MOUTH ONCE DAILY WITH MEALS 06/04 completed Not Available Not Available Not Available terbinafine HCl 250 mg tablet TAKE 1 TABLET BY MOUTH ONCE DAILY FOR 14 DAYS 06/04 completed Not Available Not Available Not Available amitriptyli ne 25 mg tablet TAKE 1 TABLET BY MOUTH ONCE DAILY 03/04 completed Not Available Not Available Not Available oxycodone-a cetaminophe n 10 mg-325 mg tablet TAKE 1 TABLET BY MOUTH EVERY 6 HOURS NEEDED FOR PAIN 07/05 completed Not Available Not Available Not Available pyridostigm ine bromide 60 mg tablet active Not Available Not Available Not Available cabergoline 0.5 mg tablet Take 1 tablet twice a week by oral route at dinner for 90 days. 2022 active Not Available Not Available Not Avai lable indomethaci n 50 mg capsule TAKE 1 CAPSULE BY MOUTH EVERY 8 HOURS NEEDED active Not Available Not Available No t Available betamethaso ne dipropionat e 0.05 % topical cream APPLY A THIN LAYER TO THE AFFECTED AREA(S) BY TOPICAL ROUTE ONCE DAILY 11/29 completed Not Available Not Available Not Available gabapentin 300 mg capsule TAKE 1 CAPSULE BY MOUTH THREE TIMES DAILY 06/04 completed Not Available Not Available Not Available omeprazole 20 mg capsule,del ayed release TAKE 1 CAPSULE BY MOUTH ONCE DAILY BEFORE MEAL(S) FOR 90 DAYS active Not Available Not Available No t Available diclofenac sodium 75 mg tablet,eli yed release TAKE 1 TABLET BY MOUTH TWICE DAILY 06/04 completed Not Available Not Available Not Available hydroxyzine HCl 25 mg tablet Take 1 tablet 3 times a day by oral route. 03/04 completed Not Available Not Available Not Available ibuprofen 600 mg tablet TAKE 1 TABLET BY MOUTH THREE TIMES DAILY NEEDED FOR PAIN active Not Available Not Available No t Available bromocripti ne 2.5 mg tablet TAKE ONE TABLET THREE TIMES DAILY BY MOUTH 2022 active Not Available Not Available Not Avai lable levofloxaci n 500 mg tablet 11/29 completed Not Available Not Available Not Available letrozole 2.5 mg tablet TAKE 1 TABLET BY MOUTH ONCE DAILY ON CYCLE DAYS 3-7 active Not Available Not Available No t Available Vitamin D2 1,250 mcg (50,000 unit) capsule TAKE 1 CAPSULE BY MOUTH ONCE A WEEK 03/04 completed Not Available Not Available Not Available ketoconazol e 2 % topical cream APPLY CREAM TOPICALLY TO AFFECTED AREA ONCE DAILY active Not Available Not Available No t Available betamethaso ne dipropionat e 0.05 % topical ointment APPLY TO AFFECTED AREAS ON THE BODY TWICE DAILY FOR 2 WEEKS STOP AND APPLY ELIDEL TWICE DAILY FOR 2 WEEKS REPEAT ALTERNATI NG 11/29 completed Not Available Not Available Not Available ondansetron 4 mg disintegrat ing tablet DISSOLVE 1 TABLET IN MOUTH EVERY 4 HOURS NEEDED FOR NAUSEA FOR VOMITING active Not Available Not Available No t Available fluticasone propionate 50 mcg/actuati on nasal spray,suspe nsion USE 2 SPRAY(S) IN EACH NOSTRIL ONCE DAILY DIRECTED active Not Available Not Available No t Available metformin ER 500 mg tablet,exte nded release 24 hr TAKE 2 TABLETS BY MOUTH TWICE DAILY BEFORE MEAL(S) active Not Available Not Available No t Available loratadine 10 mg tablet TAKE 1 TABLET BY MOUTH ONCE DAILY 11/29 completed Not Available Not Available Not Available naproxen 500 mg tablet TAKE 1 TABLET BY MOUTH TWICE DAILY WITH FOOD 03/04 completed Not Available Not Available Not Available Artificial Tears (polyvinyl alcohol) 1.4 % eye drops INSTILL 1 DROP INTO AFFECTED EYE(S) THREE TIMES DAILY AROUND THE CLOCK FOR 30 DAYS 08/24 completed Not Available Not Available Not Available azithromyci n 500 mg tablet 11/29 completed Not Available Not Available Not Available Sprintec (28) 0.25 mg-35 mcg tablet TAKE 1 TABLET BY MOUTH ONCE DAILY active Not Available Not Available No t Available metformin ER 500 mg tablet,exte nded release 24hr (osmotic) Take 2 tablets twice a day by oral route before meals for 30 days. 03/04 completed Not Available Not Available Not Available Januvia 100 mg tablet Take 1 tablet every day by oral route in the morning for 90 days. 04/25 completed Not Available Not Available Not Available OneTouch Delica Lancets 33 gauge USE 1 TO CHECK GLUCOSE ONCE DAILY active Not Available Not Available No t Available Tradjenta 5 mg tablet 04/25 completed Not Available Not Available Not Available alogliptin 25 mg tablet Take 1 tablet every day by oral route in the morning for 90 days. 04/25 completed Not Available Not Available Not Available Victoza 3-Ty 0.6 mg/0.1 mL (18 mg/3 mL) subcutaneou s pen injector INJECT 1.8 MG SUBCUTANE OUSLY ONCE DAILY IN THE MORNING active Not Available Not Available No t Available Saxenda 3 mg/0.5 mL (18 mg/3 mL) subcutaneou s pen injector INJECT 2.4 MG SUBCUTANE OUSLY ONCE DAILY FOR 30 DAYS 06/04 completed Not Available Not Available Not Available TRUEplus Pen Needle 32 gauge x 5/32 USE 1 ONCE DAILY DIRECTED TO INJECT VICTOZA WITH LARGEST MEAL 08/24 completed Not Available Not Available Not Available OneTouch Ultra Blue Test Strip USE 1 STRIP TO CHECK GLUCOSE ONCE DAILY active Not Available Not Available No t Available diclofenac 75 mg tablet del.rel-cap alexis 0.025%-m.sa lic 25%-ment 6% liqd 11/29 completed Not Available Not Available Not Available OneTouch Ultra2 Meter USE DIRECTED active Not Available Not Available No t Available Vitals Date Recorded Body mass index (BMI) Body height Oxygen saturation Oxygen saturation in Arterial blood by Pulse oximetry Heart rate Body temperature Body weight Systolic blood pressure Diastolic blood pressure Provider Name and Address Organization Details Last Updated DateTime 1 41.5 kg/m2 170.18 cm 94 % 94 % 59 /min 98.7 [degF] 616562. 98 g 100 mm[Hg] 60 mm[Hg] Not Available [facility] 3 04:51:27 Date Recorded Body mass index (BMI) Body height Oxygen saturation Oxygen saturation in Arterial blood by Pulse oximetry Heart rate Body temperature Body weight Systolic blood pressure Diastolic blood pressure Provider Name and Address Organization Details Last Updated DateTime 1 41.2 kg/m2 170.18 cm 98 % 98 % 74 /min 98.4 [degF] 021106. 79 g 100 mm[Hg] 70 mm[Hg] Not Available [facility] 3 04:51:27 Date Recorded Body mass index (BMI) Body height Oxygen saturation Oxygen saturation in Arterial blood by Pulse oximetry Heart rate Body temperature Body weight Systolic blood pressure Diastolic blood pressure Provider Name and Address Organization Details Last Updated DateTime 2 38.8 kg/m2 170.18 cm 98 % 98 % 75 /min 98 [degF] 436826. 91 g 120 mm[Hg] 70 mm[Hg] Not Available [facility] 3 04:51:27 Date Recorded Body mass index (BMI) Body height Oxygen saturation Oxygen saturation in Arterial blood by Pulse oximetry Heart rate Body temperature Body weight Systolic blood pressure Diastolic blood pressure Provider Name and Address Organization Details Last Updated DateTime 3 38.7 kg/m2 170.18 cm 98 % 98 % 92 /min 97.6 [degF] 358849. 32 g 115 mm[Hg] 60 mm[Hg] Not Available [facility] 3 04:51:28 Date Recorded Body height Body mass index (BMI) Body weight Body temperature Heart rate Systolic blood pressure Diastolic blood pressure Provider Name and Address Organization Details Last Updated DateTime 3 170.18 cm 40.1 kg/m2 881275. 65 g 97.7 [degF] 67 /min 111 mm[Hg] 69 mm[Hg] Annalise Meeks [facility] [place] [employer] 3 14:20:53 Social History Question Answer Notes LastModified by Organizat ion Details LastModified Time Tobacco Smoking Status Never Smoker Not Available [employer] 07/25/2022 04:42:56 What Is Your Level Of Alcohol Consumption? None [id number] Information not available 07/25/2022 What Is Your Level Of Caffeine Consumption? Moderate [id number] Information not available 07/25/2022 In The 14 Days Before Symptom Onset, Have You Had Close Contact With A Laboratory-confir med COVID-19 While That Case Was Ill? No [id number] Information not available 07/25/2022 In The 14 Days Before Symptom Onset, Have You Had Close Contact With A Person Who Is Under Investigation For COVID-19 While That Person Was Ill? No [id number] Information not available 07/25/2022 Which Illicit Or Recreational Drugs Have You Used? None [id number] Information not available 07/25/2022 Do You Or Have You Ever Used E-cigarettes Or Vape? Never Used Electronic Cigarettes [id number] Information not available 07/25/2022 What Is Your Occupation? [employer] [id number] Information not available 07/25/2022 Sex: Female Functional Status None recorded. Mental Status None recorded. Family History Relationship Description Onset Age of this Age Resolved Age Notes LastModified by Organization Details LastModified Time Mother Diabetes mellitus [id number] Not available 07/25/2022 04:44:04 Mother Hypertensive disorder [id number] Not available 07/25/2022 04:44:04 Father Diabetes mellitus [id number] Not available 07/25/2022 04:44:04 Father Hypertensive disorder [id number] Not available 07/25/2022 04:44:04 Medical History Condition Response EYE PROBLEMS Y GERD/NAUSEA Y DIABETES, TYPE Y HEADACHES/MIGRAINES Y Gynecological HistoryNo gynecological history recorded. Obstetrics History GPAL:G 0 P 0 0 0 0 Past Encounters Encounter ID Performer Location Encounter Start Date Encounter Closed Date Diagnosis/Indication Diagnosis SNOMED-CT Code Diagnosis ICD10 Code Diagnosis Note [id number] [facility] [address] [place], [place] [address] 12/13/2020 00:00:00 12/13/2020 18:27:29 [id number] [facility] [address] [place] [address] 04/25/2021 00:00:00 04/25/2021 17:49:37 [id number] [facility] [place] [address] [place], [place] [address] 12/18/2021 00:00:00 12/18/2021 15:45:06 [id number] [facility] [place] [address] [place] [address] 06/04/2022 00:00:00 06/04/2022 13:24:00 [id number] Bj Mar MD [facility] [place] [address] [place] [address] 08/27/2022 14:09:48 08/27/2022 15:00:57 Prolactinoma 157651160 D35.2 Due to high dose of bromocript ine will transition off cabergolin e 0.5 mg twice weekly -her pituitary gland was read as normal from MRI imaging from 07/19 however her prolactin was high normal range- so indicative of continued activity - she is seeing reproducti ve/fertili ty specialist and patient might be able to go on DA holiday however we did try this last year and she did relapse so risk is relatively high. Prediabetes 398753165 R7 3.03 a1c of 5.9%- continue victoza 1.8 mg once daily as patient tolerating well. She is aware to stop if she gets a positive test. Recommende d she incorporat e natural insulin packaging materials inspector s such as pears, apples, cinnamon, carlo and sweet potatoes to help mobilize her endogenous insulin. Recommende d up to 150 minutes of moderate level activity/e xercise weekly. Irregular periods 257153 07 N92.6 WIll provide clomiphene challenge to assess ovulatory function-s he does have a follow up with her reproducti ve specialist and aware to use the digital smiley face LH kit for better accuracy to provide better informatio n for her follow up. Spent up to 25 minutes preparing to see the patient (eg, review of tests), obtaining and/or reviewing separately obtained history, performing a medically appropriat e examinatio n and evaluation , counseling and educating the patient, ordering medication s, tests, along with documentin g clinical informatio n in the electronic health record, independen tly interpreti ng results and communicat ing results to the patient. RTC in 6 months. Patient was provided a handwritte n lab order which contains our fax number. If she chooses to go outside of the [facility] system to obtain labwork she was advised to provide our fax number and my informatio n to the lab she will be obtaining labwork from in order to have her labs properly forwarded over for me to review so there is no loss of follow up due to use of outside network. She was also advised to contact our clinic informing us that she has completed her labwork so we are aware we will need to reach out to the appropriat e laboratory to request her results be forwarded to us so I might have the ability to review and make further medical decision making in her case. She voiced understand ing. Health Concerns Section Related Observation LastModified by Organization Detai ls LastModified Time None Recorded Concern Status LastModified by Organization Details LastModified Time None Recorded Advance Directives Directive None Recorded Payers Encounter Date Sequence Insurance Name Policy Number Policy Judd Covered Member ID Judd Member ID Guarantor Name 08/27/2022 1 [employer] [facility] (MEDICAID HMO) [id number] 0003 Joana Davis [id number] Joana Davis Notes Date Note Type Note Provider Name and Address Organization Details Recorded Time 08/27/2022 text/html 32 yo female com es in for follow up in management of prediabetes (A1C of 5.9%), hypothyroidism, prolactinoma and headaches. At her last visit in May we had patient continue on victoza 1.8 mg SQ daily. last seen in May at that time we continued bromocriptine 2.5 mg TID for known hx of prolactinoma. We referred patient to reproductive specialist. we continued inderal for headache control. She is ovulating more regularly. She will be going back to see fertility specialist soon. MRI pituitary was clear from 07/16/22-no evidence of pituitary adenoma. He is wantinglabs from 07/02/22:a1c 5.9%insulin 10.8 uU/mlprolactin 33.3 ng/mLTSH of 0.406 uIU/mlFT4 of 1.03 ng/dLFT3 of 3.5 pg/mlglucose 88 mg/dLCr normalLFT normal Bj Mar MD [address], [place], [address], [place] [facility] [email or web address] 08/27/2022 17:36:09 OBGyn Episode No OBEpisode recorded.
--- OUTSIDE RECORDS SUMMARY | 2024-06-23 12:47 | XMS_ITS | Clinical Summary ---
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 Gender Identity Not on file Sexual Orientation Not on file Plan of Treatment Health Maintenance Due Date Last Done Comments Hepatitis C Virus (HCV) Screening 1989 Hepatitis B Immunization (2 of 3 - 3-dose series) 09/04/1999 08/07/1999 Pap Smear 2010 Cervical Cancer Screening (CCS) 08/02/2019 HPV/Cotest 08/02/2019 Influenza Immunization (#1) 2024 02/18/2019, 1 07/19/2015 SARS-COV-2 Immunization ( season) 2024 12/02/2020, 11/04/2020 Respiratory Syncytial Virus (RSV) Immunization (Adult) (1 - 1-dose 75+ series) 2064 DTaP/Tdap/Td Immunization Discontinued 2017, 11/12/1994, 11/11/1991, Additional history exists TdaP Immunization Completed 10/30/2017 Meningococcal Immunization (ACWY) Aged Out No longer eligible based on patient's age to complete this topic Pneumococcal Immunization Combined Aged Out No longer eligible based on patient's age to complete this topic Rotavirus Immunization Aged Out No lo nger eligible based on patient's age to complete this topic
--- OUTSIDE RECORDS SUMMARY | 2024-06-23 12:47 | XMS_ITS | Clinical Summary ---
Author Organization [facility] Address [address] [place] [address]. 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 04/23/2021 Active clomiPHENE Citrate 50 MG Tab 03/23/2021 Active fluticasone propionate 50 MCG/ACT nasal spray 10/13/2020 Active gabapentin 300 MG capsule Take 300 mg by mouth 3 (three) times daily. 04/11/2021 Active diclofenac EC 75 MG tablet 07/25/2020 Active EUTHYROX 25 MCG tablet TAKE 1 TABLET BY MOUTH ONCE DAILY IN THE MORNING FOR 90 DAYS 04/25/2021 Active TRADJENTA 5 MG tablet 03/07/2021 Active metFORMIN ER 500 MG 24 hr tablet 03/13/2021 Active Active Problems No known active problems Family History Medical History Relation Comments Diabetes Father Hypertension Father Diabetes Mother Hypertension Mother Relation Status Comments Father Mother Social History Tobacco Use Types Packs/Day Years Used Date Smoking Tobacco: Never Smokeless Tobacco: Never Alcohol Use Standard Drinks/Week Comments Yes 0 (1 standard drink = 0.6 oz pur e alcohol) Comments No Sex and Gender Information Value Date Recorded Sex Assigned at Not on file 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 Gender Identity Not on file Sexual Orientation Not on file Last Filed Vital Signs Vital Sign Reading Time Taken Comments Blood Pressure 133/82 05/25/2021 1:44 PM SURVEILLANCE DUAL RATE OFFICER Pulse 60 05/25/2021 1:44 PM SURVEILLANCE DUAL RATE OFFICER Temperature 36.2 ??C (97.2 ??F) 05/25/2021 1:44 PM CS T Respiratory Rate 20 05/25/2021 1:44 PM SURVEILLANCE DUAL RATE OFFICER Oxygen Saturation 100% 05/25/2021 1:44 PM SURVEILLANCE DUAL RATE OFFICER Inhaled Oxygen Concentration - - Weight 117.9 kg (260 lb) 05/25/2021 1:44 PM SURVEILLANCE DUAL RATE OFFICER Height 172.7 cm (5' 8 ) 05/25/2021 1:44 PM SURVEILLANCE DUAL RATE OFFICER Body Mass Index 39.53 05/25/2021 1:44 PM SURVEILLANCE DUAL RATE OFFICER Plan of Treatment Health Maintenance Due Date Last Done Comments Cervical Cancer Screening Pap Smear (Age 30 to 64) Every 3 Years 1989 Annual Physical 1992 Hepatitis B Vaccines (2 of 3 - 3-dose series) 09/04/1999 08/07/1999 Hepatitis C 08/02/2007 Cervical Cancer Screening Pap with HPV Testing (Age 30 to 64) Every 5 Years 08/02/2019 Cervical Cancer Screening with HPV 08/02/2019 COVID-19 Vaccine ( season) 2024 12/02/2020, 11/04/2020 Influenza Adult (#1) 2024 02/18/2019, 02/18/2018, 05/18/2016 DTaP, Tdap and Td Vaccines (7 - Td or Tdap) 10/31/2027 10/30/2017, 11/12/1994, 11/11/1991, Additional history exists HPV Vaccines Aged Out No longer eligi ble based on patient's age to complete this topic Meningococcal B Vaccine Aged Out No l onger eligible based on patient's age to complete this topic Meningococcal Vaccine Aged Out No juan sameera eligible based on patient's age to complete this topic Pneumococcal Vaccine: Pediatrics (0 to 5 Years) and At-Risk Patients (6 to 64 Years) Aged Out No longer eligible based on patient's age to complete this topic RSV Immunizations Under 20 Months Aged Out No longer eligible based on patient's age to complete this topic Insurance AETNA Care Teams 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
--- NOTE | 2024-06-23 13:29 | ED.GENADULT ---
HPI - General Adult General Chief complaint: Upper Respiratory Infection Stated complaint: cough Time Seen by Provider: 06/23/24 13:29 Focused HPI: Joana Nava is a 33 y/o female who presents with complaints of coughing/ not feeling well - she states this started a couple days ago. She states she feels hot and cold GENERAL: Well-appearing, well-nourished, and in no acute distress. HEAD: Normocephalic, atraumatic. CHEST: Clear to auscultation. ?No respiratory distress. HEART: Regular rate and rhythm.? NEURO: ?Alert and oriented x3. Patient screened in triage and initial orders placed.? ?Additional care and disposition to be based upon?diagnostic testing and treatment. History of Present Illness HPI narrative: Joana Nava is a 33 y/o female who presents with complaints of coughing/ not feeling well - she states this started a couple days ago. She states she feels hot and cold Related Data Home Medications ?Medication ?Instructions ?Recorded ?Confirmed ?Last Taken ?Type bromocriptine 2.5 mg tablet mg 08/25/22 Unknown History gabapentin 400 mg capsule mg 08/25/22 Unknown History ketoconazole 2 % topical cream applic topical 08/25/22 Unknown History liraglutide 0.6 mg/0.1 mL (18 mg/3 mg subcut 08/25/22 Unknown History mL) subcutaneous pen injector (Victoza 2-Ty) norgestimate 0.25 mg-ethinyl tablet 08/25/22 Unknown History estradiol 35 mcg tablet (Sprintec (28)) propranolol 60 mg capsule,24 mg PO 08/25/22 Unknown History hr,extended release Allergies Allergy/AdvReac Type Severity Reaction Status Date / Time No Known Allergies Allergy Verified 08/25/22 06:05 Review of Systems Review of Systems: All systems reviewed & are unremarkable except as noted in HPI and below PMFSH Past Medical History Medical History Myasthenia gravis Pituitary tumor per patient verbal history Migraine Surgical History Surgical History H/O thyroidectomy per patient Social History Social History Smoking status: Never smoker Alcohol intake: never Substance use: never Gender identity (if verbalized by the patient): Female Exam Const: General: cooperative, comfortable, no acute distress, well developed, alert, awake, Physically active and well groomed HENMT: Head: normal to inspection Face/Nose/Sinus: Normal external nose present and Normal nares present Mouth: Yes Normal oral and palatal mucosa present and Yes tongue normal Throat: posterior oropharynx normal and tonsils normal Eyes: General: appearance normal, both eyes and all related structures Neck: Neck: normal visual inspection and full ROM Chest: Chest palpation & inspection: normal inspection of the chest Resp: Effort & Inspection: normal respiratory effort and able to speak in complete sentences Cardio: Jugular venous distension: no JVD GI: Inspection: normal to inspection Skin: General skin exam: normal color and no rashes or lesions noted Neuro: General: oriented to person, oriented to place and oriented to time Psych: Appearance: grossly normal and well kempt Mental Status: mental status grossly normal Course Vital Signs Vital signs: Vital Signs Temperature 36.9 C 06/23/24 11:43 Pulse Rate 06/23/24 11:43 Blood Pressure 121/73 06/23/24 11:43 Pulse Oximetry 06/23/24 11:43 Temperature 36.9 C 06/23/24 11:43 Pulse Rate 06/23/24 11:43 Blood Pressure 121/73 06/23/24 11:43 Pulse Oximetry 06/23/24 11:43 Medical Decision Making Vital Signs Vital Signs: Vital Signs Temperature 36.9 C 06/23/24 11:43 Pulse Rate 06/23/24 11:43 Blood Pressure 121/73 06/23/24 11:43 Pulse Oximetry 06/23/24 11:43 Temperature 36.9 C 06/23/24 11:43 Pulse Rate 06/23/24 11:43 Blood Pressure 121/73 06/23/24 11:43 Pulse Oximetry 06/23/24 11:43 Lab Data Labs: Lab Results 06/23/24 Range/Units 13:49 Influenza A (RT-PCR) Negative (Negative) Influenza B (RT-PCR) Negative (Negative) RSV (RT-PCR) Negative (Negative) SARS-CoV-2 RNA (RT-PCR) Negative (Negative) Discharge Plan Discharge Clinical Impression: Acute viral syndrome Upper respiratory infection Qualifiers: URI type: unspecified viral URI Qualified Code(s): J06.9 - Acute upper respiratory infection, unspecified Patient Disposition: Home, Self-Care Condition: Stable Instructions: Antibiotic Form Additional Instructions: Continue to take Mucinex twice a day and Benzonatate as ordered. Take Tylenol Motrin for body aches. Push oral hydration and get plenty of rest stay home from work until your feeling better and not having any fevers if you have any worsening symptoms shortness of breath chest pain is always return to the ER Patient Language: Mohawk Prescriptions: New guaifenesin [Mucus Relief ER] 1,200 mg tablet extended release 12hr 1,200 mg PO BID Qty: 20 0RF benzonatate 100 mg capsule 100 mg PO BID PRN (Reason: cough) Qty: 10 0RF No Action ibuprofen 800 mg tablet 800 mg PO TID PRN (Reason: pain) Qty: 20 0RF norgestimate-ethinyl estradiol [Sprintec (28)] 0.25-35 mg-mcg tablet propranolol 60 mg capsule,extended release 24 hr PO gabapentin 400 mg capsule bromocriptine 2.5 mg tablet ketoconazole 2 % cream TOPICAL Victoza 2-Ty 0.6 mg/0.1 mL (18 mg/3 mL) pen injector SUBCUT ibuprofen 600 mg tablet 600 mg PO TID PRN (Reason: pain) Qty: 14 0RF Follow-up/Referrals: PHYSICIAN NOT ON STAFF,NONSTAFF [Non-Staff] - Stand Alone Forms: Work/School Release IP Time of Disposition: 16:38
[2024-06-23 14:33] LABS: Influenza A QL RT-PCR Negative (Negative); Influenza B QL RT-PCR Negative (Negative); RSV RNA, RT-PCR Negative (Negative); SARS-CoV-2 RNA PCR Negative (Negative)
[2024-06-23] MEDS: ACETAMINOPHEN 500 MG TABLET 1000 MG PO (16:25)
[2024-06-23] MEDS: IBUPROFEN 600 MG TABLET PO (16:25)
--- OUTSIDE RECORDS SUMMARY | 2024-06-23 16:52 | XMS_ITS | Clinical Summary ---
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
--- OUTSIDE RECORDS SUMMARY | 2024-06-23 16:52 | XMS_ITS | Clinical Summary ---
Author Organization [facility] Address [address] [place] [address]. 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 Gender Identity Not on file Sexual Orientation Not on file Last Filed Vital Signs Vital Sign Reading Time Taken Comments Blood Pressure 133/82 05/25/2021 1:44 PM ENGINE TESTING SUPERVISOR Pulse 60 05/25/2021 1:44 PM ENGINE TESTING SUPERVISOR Temperature 36.2 ??C (97.2 ??F) 05/25/2021 1:44 PM CS T Respiratory Rate 20 05/25/2021 1:44 PM ENGINE TESTING SUPERVISOR Oxygen Saturation 100% 05/25/2021 1:44 PM ENGINE TESTING SUPERVISOR Inhaled Oxygen Concentration - - Weight 117.9 kg (260 lb) 05/25/2021 1:44 PM ENGINE TESTING SUPERVISOR Height 172.7 cm (5' 8 ) 05/25/2021 1:44 PM ENGINE TESTING SUPERVISOR Body Mass Index 39.53 05/25/2021 1:44 PM ENGINE TESTING SUPERVISOR Plan of Treatment Health Maintenance Due Date [...] complete this topic Insurance AETNA Care Teams 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
== END 2024-06-23 17:05 | disposition home or self-care (01) ==
LOC: ANHED 16:48
PROVIDERS: Nurse Practitioner Family
DX: B34.9 Viral infection, unspecified (principal); J06.9 Acute upper respiratory infection, unspecified; Z20.822 Contact with and (suspected) exposure to COVID-19
CPT/HCPCS: 71046; 87637; 99283; A9270